=== PATIENT | female | born 1960 | race Caucasian/White ===

== ENCOUNTER 2018-04-26 11:08 | Emergency (ER) | payer OTHER, SELFPAY ==
[2018-04-26 11:17] VITALS: BP 134/85; PULSE 90; RESP 16; TEMP 36.6; O2SAT 100
--- NOTE | 2018-04-26 11:30 | DI.RAD_ITS ---
SYMPTOM/DIAGNOSIS: TRAUMA, PAIN LEFT FOOT: Three views. No bone or joint abnormality is identified. IMPRESSION: No acute abnormality.
--- NOTE | 2018-04-26 11:32 | W.ED.GENAD ---
Discharge Plan Disposition Patient Disposition: HOME Condition: Fair Discharge Details Chief Complaint: Orthopedic Clinical Impression: Contusion of foot Primary Care Provider: Marie Rao ED Provider: Skylar Addison Home Meds and New Rx's Prescriptions: Continue ascorbic acid (vitamin C) [Vitamin C] 500 MG tablet 500 mg PO DIRECTED RF: 0 omega-3 fatty acids-fish oil 1 EACH capsule 3 ea PO DIRECTED RF: 0 vitamin N76-nfxvt acid 1 EACH tablet 1 ea PO DIRECTED RF: 0 Lactobacillus acidophilus [Probiotic] 1 EACH capsule 1 ea PO RF: 0 Iodine 1 bottle PO DIRECTED RF: 0 ginkgo biloba leaf extract 120 MG capsule 120 mg PO HS RF: 0 beets 1 bottle PO DAILY RF: 0 bisacodyl [Dulcolax (bisacodyl)] 5 MG tablet,delayed release (DR/EC) 5 mg PO ONCE Qty: 4 RF: 0 polyethylene glycol 3350 [Miralax] 527 GM powder 255 gm PO for colonoscopy Qty: 1 RF: 0 Discharge Instructions Instructions: Foot Contusion (ED) Additional Instructions: Encourage rest, ice, elevation. Tylenol and/or ibuprofen as needed for discomfort. If you develop new or worsening symptoms please seek care urgently once again. If pain persists over the next 2 weeks please follow-up with primary care provider. Please avoid activities that increase your discomfort. Referrals: Marie Rao [Primary Care Provider] - Medical Decision Making Patient is a 49-year-old female presenting today with chief complaint of left foot pain. 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 No other injury at the time of the incident. Denies any numbness or tingling. States she was sore initially the pain was fairly minimal. Pain is persisted although has changed with time. Woke this morning and noted that the ecchymosis she had initially experienced on the midfoot had spread more distally. States she is now having some discomfort over this distal area which just proximal to the base of the third and fourth metatarsal. She is concerned for possible fracture. No visible or palpable deformity. Patient declining any analgesics at this time. Pain is maximal with pressure applied to the ball the foot such as when she is squatted down. Reports minimal discomfort with ambulation. Will obtain x-ray to evaluate for any bony abnormality X-ray reviewed by radiologist. No acute fracture dislocation. Soft tissues are normal. Advised impressions are with no acute findings per Discussed these findings with the patient. Advised contusion. Encouraged rest, ice, elevation. Tylenol and/or ibuprofen as needed for discomfort. We discussed the use of a postoperative shoe to help with pain management. However, patient is declined this. We discussed new/worsening symptoms when to seek care urgently once again. Advise follow-up with primary care in the next 2 weeks if symptoms have not improved. All of her questions and concerns were addressed and she is in agreement with this plan. HPI General Mode of arrival: ambulatory. Date/Time Provider Initiated Documentation: 04/26/18 11:19. Limitations to Documentation: no limitations. Information obtained by: patient. History of Present Illness 57 year old F presents to the emergency department with the chief complaint of left foot pain, described as mild, Quality is described as aching, and is localized to the left and lower extremity. Patient reports no radiation. Patient started experiencing this day(s) (3) and it has been intermittent. Immobilization improves symptom(s), Movement worsens symptoms . Patient notes rash (ecchymosis); denies cough, fever/chills and weakness. Patient did receive the following treatments prior to arrival, none Related Data Home Medications Medication Instructions Recorded Confirmed Iodine 1 bottle PO DIRECTED 04/16/14 04/26/18 Lactobacillus acidophilus 1 ea PO 04/16/14 [Probiotic] ascorbic acid (vitamin C) [Vitamin 500 mg PO DIRECTED 04/16/14 04/26/18 C] omega-3 fatty acids-fish oil 3 ea PO DIRECTED 04/16/14 04/26/18 vitamin R10-bbzkf acid 1 ea PO DIRECTED 04/16/14 04/26/18 Beets 1 bottle PO DAILY 08/03/15 04/26/18 ginkgo biloba leaf extract 120 mg PO HS 08/03/15 04/26/18 bisacodyl [Dulcolax (bisacodyl)] 5 mg PO ONCE #4 tab 08/31/15 04/26/18 polyethylene glycol 3350 [Miralax] 255 gm PO for colonoscopy #1 g 08/31/15 04/26/18 Allergies Allergy/AdvReac Type Severity Reaction Status Date / Time Egg Derived Allergy Intermediate Dizziness/L Unverified 04/26/18 11:20 ightheade gluten Allergy Dizziness/L Unverified 04/26/18 11:20 ightheade Sulfa (Sulfonamide AdvReac Severe Vomitting/loss Unverified 04/26/18 11:20 Antibiotics) of consciousness lactose AdvReac Intermediate Dizziness/L Unverified 04/26/18 11:20 ightheade General Stated Complaint: Orthopedic ROMI: 4 Review of Systems Constitutional Reports as per HPI, Denies chills, Denies fever(s), Denies headache(s) and Denies weakness ENT Denies headache(s) Cardiovascular Reports as per HPI Respiratory Reports as per HPI and Denies cough Musculoskeletal Reports as per HPI and Denies tingling Integumentary/Breasts Denies rash, Denies wounds and Reports other (ecchymosis over the dorsal aspect of the left foot) Neurologic Denies headache(s), Denies tingling and Denies weakness PFSH Hx of abnormal cervical Pap smear Hx of colonic polyps Colonoscopy - IV Sedation (05/08/16) Medical History Hx of abnormal cervical Pap smear Hx of colonic polyps Social History Smoking/Tobacco Use Status: Never Surgical History Colonoscopy - IV Sedation (05/08/16) Social History Smoking/Tobacco Use Status: Never Exam Const General: cooperative, healthy appearing, comfortable, no acute distress, well developed and well groomed Nutritional Appearance: average body habitus and well nourished Orientation: alert and awake Resp Effort & Inspection: normal respiratory effort, able to speak in complete sentences and no respiratory distress Cardio Rate: regular rate Rhythm: regular rhythm Skin General skin exam: ecchymosis (yellowed ecchymosis over the dorsal midfoot of the left foot, darker purple area of ecchymosis distal to this at the base of the 3rd and 4th metatarsal) Neuro General: alert and awake Cognition: normal cognition Speech: speech normal Gait: normal gait Motor: muscle tone normal throughout Sensory Exam: no sensory deficits noted Extrem Left lower extremity: full ROM and normal capillary refill; abnormal to inspection (ecchymosis as above. Pain with palpation over the ecchymotic areas, particularly the distal aspect. Full ROM. No visible or palpable deformity. No pain with palpation over the prox 5th. No pain with compression of the area. No abnormality to the plantar aspect) Psych Appearance: grossly normal and well kempt Mental Status: mental status grossly normal Speech and Movement: speech and movement normal Course Vital Signs Temperature 36.6 C 04/26/18 11:17 Pulse 90 04/26/18 11:17 Respiratory Rate 16 04/26/18 11:17 Blood Pressure 134/85 04/26/18 11:17 Pulse Oximetry 100 04/26/18 11:17 Temperature 36.6 C 04/26/18 11:17 Temperature Source Skin 04/26/18 11:17 Pulse 90 04/26/18 11:17 Respiratory Rate 16 04/26/18 11:17 Respiratory Effort Non-Labored 04/26/18 11:17 Blood Pressure 134/85 04/26/18 11:17 Blood Pressure Position Sitting 04/26/18 11:17 Pulse Oximetry 100 04/26/18 11:17 Oxygen Delivery Method Room Air 04/26/18 11:17 Oxygen Flow Rate 0 04/26/18 11:17 Pain Level 2 04/26/18 11:17
--- NOTE | 2018-04-26 11:41 | ED.GENADUL_ITS ---
Discharge Plan Disposition Patient Disposition: HOME Condition: Fair Discharge Details Chief Complaint: Orthopedic Clinical Impression: Contusion of foot Primary Care Provider: Marie Rao ED Provider: Skylar Addison Home Meds and New Rx's Prescriptions: Continue ascorbic acid (vitamin C) [Vitamin C] 500 MG tablet 500 mg PO DIRECTED RF: 0 omega-3 fatty acids-fish oil 1 EACH capsule 3 ea PO DIRECTED RF: 0 vitamin P14-gjxym acid 1 EACH tablet 1 ea PO DIRECTED RF: 0 Lactobacillus acidophilus [Probiotic] 1 EACH capsule 1 ea PO RF: 0 Iodine 1 bottle PO DIRECTED RF: 0 ginkgo biloba leaf extract 120 MG capsule 120 mg PO HS RF: 0 beets 1 bottle PO DAILY RF: 0 bisacodyl [Dulcolax (bisacodyl)] 5 MG tablet,delayed release (DR/EC) 5 mg PO ONCE Qty: 4 RF: 0 polyethylene glycol 3350 [Miralax] 527 GM powder 255 gm PO for colonoscopy Qty: 1 RF: 0 Discharge Instructions Instructions: Foot Contusion (ED) Additional Instructions: Encourage rest, ice, elevation. Tylenol and/or ibuprofen as needed for discomfort. If you develop new or worsening symptoms please seek care urgently once again. If pain persists over the next 2 weeks please follow-up with primary care provider. Please avoid activities that increase your discomfort. Referrals: Marie Rao [Primary Care Provider] - Medical Decision Making Patient is a 49-year-old female presenting today with chief complaint of left foot pain. 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 No other injury at the time of the incident. Denies any numbness or tingling. States she was sore initially the pain was fairly minimal. Pain is persisted although has changed with time. Woke this morning and noted that the ecchymosis she had initially experienced on the midfoot had spread more distally. States she is now having some discomfort over this distal area which just proximal to the base of the third and fourth metatarsal. She is concerned for possible fracture. No visible or palpable deformity. Patient declining any analgesics at this time. Pain is maximal with pressure applied to the ball the foot such as when she is squatted down. Reports minimal discomfort with ambulation. Will obtain x-ray to evaluate for any bony abnormality X-ray reviewed by radiologist. No acute fracture dislocation. Soft tissues are normal. Advised impressions are with no acute findings per Discussed these findings with the patient. Advised contusion. Encouraged rest , ice, elevation. Tylenol and/or ibuprofen as needed for discomfort. We discussed the use of a postoperative shoe to help with pain management. However , patient is declined this. We discussed new/worsening symptoms when to seek care urgently once again. Advise follow-up with primary care in the next 2 weeks if symptoms have not improved. All of her questions and concerns were addressed and she is in agreement with this plan. HPI General Mode of arrival: ambulatory . Date/Time Provider Initiated Documentation: 04/26/18 11:19 . Limitations to Documentation: no limitations . Information obtained by: patient . History of Present Illness 57 year old F presents to the emergency department with the chief complaint of left foot pain, described as mild, Quality is described as aching, and is localized to the left and lower extremity. Patient reports no radiation. Patient started experiencing this day(s) (3) and it has been intermittent. Immobilization improves symptom(s), Movement worsens symptoms . Patient notes rash (ecchymosis); denies cough, fever/chills and weakness. Patient did receive the following treatments prior to arrival, none Related Data Home Medications Medication Instructions Recorded Confirmed Iodine 1 bottle PO DIRECTED 04/16/14 04/26/18 Lactobacillus acidophilus 1 ea PO 04/16/14 [Probiotic] ascorbic acid (vitamin C) [Vitamin 500 mg PO DIRECTED 04/16/14 04/26/18 C] omega-3 fatty acids-fish oil 3 ea PO DIRECTED 04/16/14 04/26/18 vitamin N03-tjsom acid 1 ea PO DIRECTED 04/16/14 04/26/18 Beets 1 bottle PO DAILY 08/03/15 04/26/18 ginkgo biloba leaf extract 120 mg PO HS 08/03/15 04/26/18 bisacodyl [Dulcolax (bisacodyl)] 5 mg PO ONCE #4 tab 08/31/15 04/26/18 polyethylene glycol 3350 [Miralax] 255 gm PO for colonoscopy #1 g 08/31/1504/26 Allergies Allergy/AdvReac Type Severity Reaction Status Date / Time Egg Derived Allergy Intermediate Dizziness/L Unverified 04/26/18 11:20 ightheade gluten Allergy Dizziness/L Unverified 04/26/18 11:20 ightheade Sulfa (Sulfonamide AdvReac Severe Vomitting/loss Unverified 04/26/18 11:20 Antibiotics) of consciousness lactose AdvReac Intermediate Dizziness/L Unverified 04/26/18 11:20 ightheade General Stated Complaint: Orthopedic ROMI: 4 Review of Systems Constitutional Reports as per HPI, Denies chills, Denies fever(s), Denies headache(s) and Denies weakness ENT Denies headache(s) Cardiovascular Reports as per HPI Respiratory Reports as per HPI and Denies cough Musculoskeletal Reports as per HPI and Denies tingling Integumentary/Breasts Denies rash, Denies wounds and Reports other (ecchymosis over the dorsal aspect of the left foot) Neurologic Denies headache(s), Denies tingling and Denies weakness PFSH Hx of abnormal cervical Pap smear Hx of colonic polyps Colonoscopy - IV Sedation (05/08/16) Medical History Hx of abnormal cervical Pap smear Hx of colonic polyps Social History Smoking/Tobacco Use Status: Never Surgical History Colonoscopy - IV Sedation (05/08/16) Social History Smoking/Tobacco Use Status: Never Exam Const General: cooperative, healthy appearing, comfortable, no acute distress, well developed and well groomed Nutritional Appearance: average body habitus and well nourished Orientation: alert and awake Resp Effort & Inspection: normal respiratory effort, able to speak in complete sentences and no respiratory distress Cardio Rate: regular rate Rhythm: regular rhythm Skin General skin exam: ecchymosis (yellowed ecchymosis over the dorsal midfoot of the left foot, darker purple area of ecchymosis distal to this at the base of the 3rd and 4th metatarsal) Neuro General: alert and awake Cognition: normal cognition Speech: speech normal Gait: normal gait Motor: muscle tone normal throughout Sensory Exam: no sensory deficits noted Extrem Left lower extremity: full ROM and normal capillary refill; abnormal to inspection (ecchymosis as above. Pain with palpation over the ecchymotic areas, particularly the distal aspect. Full ROM. No visible or palpable deformity. No pain with palpation over the prox 5th. No pain with compression of the area. No abnormality to the plantar aspect) Psych Appearance: grossly normal and well kempt Mental Status: mental status grossly normal Speech and Movement: speech and movement normal Course Vital Signs Temperature 36.6 C 04/26/18 11:17 Pulse 90 04/26/18 11:17 Respiratory Rate 16 04/26/18 11:17 Blood Pressure 134/85 04/26/18 11:17 Pulse Oximetry 100 04/26/18 11:17 Temperature 36.6 C 04/26/18 11:17 Temperature Source Skin 04/26/18 11:17 Pulse 90 04/26/18 11:17 Respiratory Rate 16 04/26/18 11:17 Respiratory Effort Non-Labored 04/26/18 11:17 Blood Pressure 134/85 04/26/18 11:17 Blood Pressure Position Sitting 04/26/18 11:17 Pulse Oximetry 100 04/26/18 11:17 Oxygen Delivery Method Room Air 04/26/18 11:17 Oxygen Flow Rate 0 04/26/18 11:17 Pain Level 2 04/26/18 11:17
--- NOTE | 2018-04-26 12:27 | DI.VRAD_ITS ---
EXAM: XR Left Foot Complete, 3 or more Views EXAM DATE/TIME: 04/26/2018 11:56 AM CLINICAL HISTORY: 57 years old, female; Pain; Foot; Left; Patient HX: Trauma, chair dropped on midfoot TECHNIQUE: XR Left foot 3 or more views. COMPARISON: No relevant prior studies available. FINDINGS: Bones/joints: No acute fracture. No dislocation. Soft tissues: Normal. IMPRESSION: No acute findings. Dictated and Authenticated by: Jodie Ly MD. Ordering:DREW LOPEZ MD
== END 2018-04-26 12:40 | disposition home or self-care (01) ==
PROVIDERS: Emergency Provider Physician Assistant; PCP Naturopath
DX: S90.32XA Contusion of left foot, initial encounter (principal); W22.8XXA Striking against or struck by other objects, initial encounter
CPT/HCPCS: 99283; 73630; 99282

== ENCOUNTER 2018-07-08 13:30 | Emergency (ER) | payer BC, SELFPAY ==
[2018-07-08 13:34] VITALS: BP 113/76; PULSE 110; RESP 20; TEMP 38.8; O2SAT 99
--- NOTE | 2018-07-08 13:48 | DI.RAD_ITS ---
SYMPTOM/DIAGNOSIS: COUGH, FEVER PA AND LATERAL CHEST: No priors. The heart is normal in size. The lungs are clear. The mediastinal structures and pleura appear intact. CONCLUSION: Normal chest.
--- NOTE | 2018-07-08 13:50 | ED.GENADUL_ITS ---
Discharge Plan Disposition Patient Disposition: HOME Condition: Improving Discharge Details Chief Complaint: Fever Clinical Impression: Acute viral syndrome Primary Care Provider: Marie Rao ED Provider: Sal Pineda Home Meds and New Rx's Prescriptions: New ondansetron HCl [Zofran] 4 mg tablet 4 mg PO QID PRN (Reason: nausea and vomiting) Qty: 10 RF: 0 Continued ascorbic acid (vitamin C) [Vitamin C] 500 MG tablet 500 mg PO DIRECTED RF: 0 omega-3 fatty acids-fish oil 1 EACH capsule 3 ea PO DIRECTED RF: 0 vitamin Z25-srieh acid 1 EACH tablet 1 ea PO DIRECTED RF: 0 Probiotic 1 EACH capsule 1 ea PO RF: 0 ginkgo biloba leaf extract 120 MG capsule 120 mg PO HS RF: 0 beets 1 bottle PO DAILY RF: 0 bisacodyl [Dulcolax (bisacodyl)] 5 MG tablet,delayed release (DR/EC) 5 mg PO ONCE Qty: 4 RF: 0 polyethylene glycol 3350 [Miralax] 527 GM powder 255 gm PO for colonoscopy Qty: 1 RF: 0 Discharge Instructions Instructions: Viral Syndrome (ED) Additional Instructions: Home to rest today. Small, frequent sips of fluids to maintain hydration. Tylenol and/or ibuprofen as needed for aches, pain, fever May use Zofran, as prescribed, as needed for nausea. Return if you develop abdominal persistent high fevers, or any other acute concerns Medical Decision Making 58-year-old female presents from home with day 6 of fever, chills, cough, malaise, decreased p.o. intake and weakness. She arrives with a temperature of 38.8, pulse of 110, otherwise normal vital signs. Given 1 L fluid, antiemetic, referred for influenza screening a chest x-ray. Chest x-ray and flu are negative. Patient is improved and tolerating liquids by mouth. It is consistent with a viral process. Will offer her Zofran for home. She is stable, improved, appropriate for discharge at this time. HPI General Mode of arrival: ambulatory . Date/Time Provider Initiated Documentation: 07/08/18 13:39 . Limitations to Documentation: no limitations . Information obtained by: patient . History of Present Illness described as moderate, Quality is described as dull, Patient started experiencing this day(s) and it has been intermittent. No relieving factors improve symptom(s), No exacerbating factors reported . Patient notes fever/chills, loss of appetite, malaise and weakness. Patient did receive the following treatments prior to arrival, none Related Data Home Medications Medication Instructions Recorded Confirmed Probiotic 1 ea PO 04/16/14 ascorbic acid (vitamin C) [Vitamin 500 mg PO DIRECTED 04/16/14 07/08/18 C] omega-3 fatty acids-fish oil 3 ea PO DIRECTED 04/16/14 07/08/18 vitamin C19-hfzcr acid 1 ea PO DIRECTED 04/16/14 07/08/18 Beets 1 bottle PO DAILY 08/03/15 04/26/18 ginkgo biloba leaf extract 120 mg PO HS 08/03/15 07/08/18 bisacodyl [Dulcolax (bisacodyl)] 5 mg PO ONCE #4 tab 08/31/15 07/08/18 polyethylene glycol 3350 [Miralax] 255 gm PO for colonoscopy #1 g 08/31/15 07/08/18 ondansetron HCl [Zofran] 4 mg PO QID PRN #10 tab 07/08/18 Previous Rx's Medication Instructions Recorded ondansetron HCl [Zofran] 4 mg PO QID PRN #10 tab 07/08/18 Allergies Allergy/AdvReac Type Severity Reaction Status Date / Time Egg Derived Allergy Intermediate Dizziness/L Unverified 07/08/18 13:38 ightheade gluten Allergy Dizziness/L Unverified 07/08/18 13:38 ightheade Sulfa (Sulfonamide AdvReac Severe Vomitting/loss Unverified 07/08/18 13:38 Antibiotics) of consciousness lactose AdvReac Intermediate Dizziness/L Unverified 07/08/18 13:38 ightheade General Stated Complaint: Fever ROMI: 3 Review of Systems Review of Systems 8 systems reviewed and otherwise negative [facility] Medical History Hx of abnormal cervical Pap smear Hx of colonic polyps Surgical History Colonoscopy - IV Sedation (05/08/16) Social History Smoking and Tabacco status: Never Exam Narrative Exam Narrative: GEN: awake, alert, oriented 3. Pleasant, well groomed, interactive. HEAD: Normocephalic, atraumatic ENT: Mucous membranes dry, oropharynx unremarkable, External ear exam unremarkable EYES: PERRL, EOMI NECK: Full ROM, no GATITO, no menigismus CHEST/RESP: Nontender, clear to auscultation bilateral, no wheeze/rhonchi/rales CARDIOVASCULAR: Tachycardic, no murmur, rub stacey. 2+ Rad pulse bilateral ABDOMEN: Soft, nontender, no mass. +Bowel sounds EXT: Full ROM, no edema, no rash Neuro: Grossly normal neurologic exam, conversant, interactive. Psych: Speech fluent, thoughts congruent, affect normal Course Vital Signs Temperature 38.8 C H 07/08/18 13:34 Pulse 110 H 07/08/18 13:34 Respiratory Rate 20 07/08/18 13:34 Blood Pressure 113/76 07/08/18 13:34 Pulse Oximetry 99 07/08/18 13:34 Temperature 38.8 C H 07/08/18 13:34 Temperature Source Temporal Artery Scan 07/08/18 13:34 Pulse 110 H 07/08/18 13:34 Respiratory Rate 20 07/08/18 13:34 Respiratory Effort Non-Labored 07/08/18 13:34 Blood Pressure 113/76 07/08/18 13:34 Pulse Oximetry 99 07/08/18 13:34 Oxygen Delivery Method Room Air 07/08/18 13:34 Oxygen Flow Rate 0 07/08/18 13:34 Pain Level 0 07/08/18 13:34
[2018-07-08] MEDS: Ketorolac 30 MG/ML VIAL IVP (14:00)
[2018-07-08] MEDS: Normal Saline 1,000 ML 1000 ML IV (14:00)
[2018-07-08 14:58] LABS: Absolute Basophil Count 0.01 k/cumm (0.0-0.2); Absolute Lymphocyte Count 0.52 k/cumm (1.2-3.4); Absolute Monocyte Count 0.35 k/cumm (0.11-0.7); Absolute Neutrophil Count 1.95 k/cumm (1.2-6.7); Basophils % 0.4; HGB 14.3 g/dL (12.0-15.5); Lymphocytes % 18.4; Mean Corp. HGB Concentration 34.9 g/dL (32.0-36.0); Mean Corpuscular Hemoglobin 31.7 pg (27.0-33.0); Mean Corpuscular Volume 90.9 fL (80-95); Mean Platelet Volume 9.5 fL (8.0-11.0); Monocytes % 12.4; Neutrophils % 68.8; Platelet Count 168 x1000/uL (130-400); RBC 4.51 m/cumm (4.00-5.20); RBC Distribution Width 11.2 % (11.7-14.6); White Blood Cell Count 2.83 k/cumm (4.4-10.8)
[2018-07-08 15:13] LABS: ALT 20 U/L (12-78); AST 20 U/L (15-37); Albumin 3.6 g/dL (3.4-5.0); Alkaline Phosphatase 54 U/L (46-116); Anion Gap 7.9 mmol/L (3-11); BUN 6 mg/dL (7-18); Bilirubin, Total 0.8 mg/dL (0.2-1.0); CO2 29.1 mmol/L (21.0-32.0); CREATININE 0.87 mg/dL (0.55-1.02); Calcium 8.4 mg/dL (8.5-10.1); Chloride 93 mmol/L (98-107); Glucose 99 mg/dL (70-100); Potassium 3.9 mmol/L (3.5-5.1); Sodium 130 mmol/L (136-145); Total Protein 7.5 g/dL (6.4-8.2)
[2018-07-08] MEDS: Ondansetron O.D.T. 4 MG TABEF PO (15:15)
[2018-07-08 16:35] VITALS: BP 113/76; PULSE 98; RESP 20; TEMP 36.8; O2SAT 99
== END 2018-07-08 16:35 | disposition home or self-care (01) ==
PROVIDERS: Emergency Provider Emergency Medicine; PCP Naturopath
DX: R05 Cough (principal); R53.1 Weakness; R53.81 Other malaise; R50.9 Fever, unspecified; B34.9 Viral infection, unspecified
CPT/HCPCS: 36415; 80053; 87449; 99284; 71046; 85025; J1885

== ENCOUNTER 2018-07-23 00:22 | Outpatient (CLI) | payer BC, SELFPAY ==
--- NOTE | 2018-07-23 09:30 | DI.US_ITS ---
SYMPTOMS/DIAGNOSIS: HEMANGIOMA OF LIVER, D18.03, 6 MO F/U ABDOMINAL ULTRASOUND: Routine examination. Comparison 12/02/17. The aorta and IVC are unremarkable. The liver is normal in size. There is a round hyperechoic mass in the left lobe of the liver. It measures 1.6 x 1.4 x 1.5 cm. When compared to the prior examination, image 24, the mass shows no significant change in size. At that time measuring 1.7 x 1.6 cm. This likely reflects a hemangioma. No suspicious hepatic masses are seen. There are a few tiny echogenic immobile nodules along the wall of the gallbladder likely reflecting polyps. No mobile echogenic masses are seen to suggest stones. No gallbladder wall thickening or pericholecystic fluid is seen. No sludge is present. The common duct is within normal limits at .3 cm. The pancreas and spleen are unremarkable. There is again seen a 0.9 cm hyperechoic mass in the left kidney. It appears stable and likely reflects a benign lesion such as an angiomyolipoma. The right kidney is unremarkable. IMPRESSION: 1. Stable echogenic lesion in the left lobe of the liver likely reflecting a hepatic hemangioma. A 6 month follow up is recommended to document stability of the lesion. Alternatively a CT scan using the hepatic hemangioma protocol may be obtained. 2. Stable echogenic 9 mm nodule in the left kidney likely reflecting an angiomyolipoma. 3. Gallbladder polyps.
== END 2018-07-23 00:42 ==
PROVIDERS: PCP Naturopath; Visit Provider Naturopath
DX: D18.03 Hemangioma of intra-abdominal structures (principal); K82.4 Cholesterolosis of gallbladder; N28.89 Other specified disorders of kidney and ureter
CPT/HCPCS: 76700

== ENCOUNTER 2019-11-04 00:58 | Outpatient (CLI) | payer BC, SELFPAY ==
--- NOTE | 2019-11-04 | DI.US_ITS ---
EXAM: US ABDOMEN CLINICAL HISTORY: F/U HEMANGIOMA,D18.03,INCREASED RT SIDED ABD PAIN, NO MASS PALPATED TECHNIQUE: Ultrasound abdomen performed using standard protocol. COMPARISON: No exams were available for comparison FINDINGS: ABDOMINAL AORTA AND IVC: Visualized portions normal caliber. PANCREAS: Normal where visualized. LIVER: Normal. Hepatopedal flow in the Portal Vein. There is again seen a 1.3 x 1 x 1.7 cm hyperechoi c mass in the left lobe most consistent sonographically with a hemangioma. It is unchanged compared to the prior examination. There is a 1.5 x 1.3 x 1.5 cm simple cyst in the right lobe of the liver. GALLBLADDER: No evidence of cholelithiasis. No evidence of wall thickening. No pericholecystic fluid identified. Several small echogenic immobile nodules are again seen along the wall of the gallbladder most suggestive of polyps. BILIARY SYSTEM: Common bile duct measures 2.4 mm. No intrahepatic biliary ductal dilation. DEL VALLE'S SIGN: Negative. KIDNEYS: Kidneys are symmetric in size. No evidence of renal calculi. No evidence of hydronephrosis. There are again seen well-circumscribed round hyperechoic lesions in the left kidney. The largest me asures 0.9 cm in maximum diameter. These likely represent angiomyolipoma is. SPLEEN: Not enlarged. ASCITES: None seen. IMPRESSION: 1. Stable hyperechoic mass in the left lobe of the liver likely reflecting a hepatic hemangioma. 2. Stable echogenic left renal lesions likely reflecting angiomyolipoma. 3. Gallbladder polyps. DATA REPOSITORY:
== END 2019-11-04 01:18 ==
PROVIDERS: PCP Naturopath; Visit Provider Naturopath
DX: R10.31 Right lower quadrant pain (principal); D18.03 Hemangioma of intra-abdominal structures; D17.71 Benign lipomatous neoplasm of kidney; K82.4 Cholesterolosis of gallbladder
CPT/HCPCS: 76700

== ENCOUNTER 2019-11-04 01:15 | Outpatient (CLI) | payer BC, SELFPAY ==
[2019-11-04 07:37] LABS: Abs Immature Grans 0.01 k/cumm (0.0-0.09); Absolute Basophil Count 0.01 k/cumm (0.0-0.2); Absolute Eosinophil Count 0.06 k/cumm (0.0-0.7); Absolute Lymphocyte Count 1.37 k/cumm (1.2-3.4); Absolute Monocyte Count 0.36 k/cumm (0.11-0.7); Absolute Neutrophil Count 2.41 k/cumm (1.2-6.7); Basophils % 0.2; Eosinophils % 1.4; HCT 41.7 % (36.0-46.0); HGB 14.5 g/dL (12.0-15.5); Immature Grans % 0.2 %; Lymphocytes % 32.5; Mean Corp. HGB Concentration 34.8 g/dL (32.0-36.0); Mean Corpuscular Hemoglobin 32.2 pg (27.0-33.0); Mean Corpuscular Volume 92.7 fL (80-95); Mean Platelet Volume 8.8 fL (8.0-11.0); Monocytes % 8.5; Neutrophils % 57.2; Platelet Count 307 x1000/uL (130-400); RBC Distribution Width 11.4 % (11.7-14.6); White Blood Cell Count 4.22 k/cumm (4.4-10.8)
[2019-11-04 08:20] LABS: Iron 136 ug/dL (50-170); Total Iron Binding Capacity 309 ug/dL (250-450); Transferrin Sat 44 % (15-50)
[2019-11-04 08:46] LABS: ALT 27 U/L (14-59); AST 18 U/L (15-37); Albumin 4.3 g/dL (3.4-5.0); Alkaline Phosphatase 64 U/L (46-116); BUN 8 mg/dL (7-18); Bilirubin, Total 1.5 mg/dL (0.2-1.0); Calcium 9.3 mg/dL (8.5-10.1); Calculated LDL 71 mg/dL (<100); Chloride 105 mmol/L (98-107); Cholesterol 138 mg/dL (<200); Ferritin 99 ng/mL (8-252); Folate 19.4 ng/mL (8.6-20.0); Glucose 88 mg/dL (74-106); HDL Cholesterol 50 mg/dL (40-60); Potassium 4.5 mmol/L (3.5-5.1); Sodium 142 mmol/L (136-145); Total Protein 7.1 g/dL (6.4-8.2); Triglyceride 88 mg/dL (<150); Vitamin B12 1462 pg/mL (193-986)
[2019-11-04 09:08] LABS: Amylase 106 U/L (25-115); Lipase 226 U/L (73-393)
[2019-11-05 05:53] LABS: Vitamin D 25 Total 51.4 ng/ml (30-100)
== END 2019-11-04 01:35 ==
PROVIDERS: PCP Naturopath; Visit Provider Naturopath
DX: R10.9 Unspecified abdominal pain (principal); R53.83 Other fatigue; Z13.220 Encounter for screening for lipoid disorders
CPT/HCPCS: 36415; 80053; 80061; 82306; 83690; 82150; 82607; 82728; 82746; 83540; 83550; 85025

== ENCOUNTER 2020-04-07 08:31 | Outpatient (CLI) | payer BC, SELFPAY ==
[2020-04-11 13:23] LABS: Patient Race White; SARS-CoV-2 RNA Undetected (Undetected); SARS-CoV-2 Specimen Source Nasal
== END 2020-04-07 08:51 ==
PROVIDERS: PCP Naturopath; Visit Provider Naturopath
DX: Z11.59 Encounter for screening for other viral diseases (principal)
CPT/HCPCS: U0003

== ENCOUNTER 2021-05-04 02:39 | Outpatient (CLI) | payer MEDICAID, SELFPAY ==
[2021-05-04 13:12] LABS: Abs Immature Grans 0.01 10^3/uL (0.0-0.06); Absolute Basophil Count 0.02 10^3/uL (0.0-0.2); Absolute Eosinophil Count 0.04 10^3/uL (0.0-0.7); Absolute Lymphocyte Count 1.27 10^3/uL (1.2-3.4); Absolute Monocyte Count 0.44 10^3/uL (0.1-0.8); Absolute Neutrophil Count 3.73 10^3/uL (1.2-6.7); Basophils % 0.4; Eosinophils % 0.7; HGB 13.7 g/dL (11.2-15.7); Immature Grans % 0.2; MCH 32.2 pg (27.0-33.0); MCHC 33.4 % (32.0-36.0); MCV 96.2 fL (80-95); MPV 8.9 fL (8.0-11.0); Neutrophils % 67.7; Nucleated RBC 0 %; Platelet Count 297 10^3/uL (130-400); RBC 4.26 10^6/uL (3.93-5.22); RDW 11.1 % (11.7-14.6); RDW-SD 39.7 fL; WBC 5.51 10^3/uL (4.4-10.8)
[2021-05-04 14:48] LABS: ALT 24 U/L (14-59); AST 13 U/L (15-37); Alkaline Phosphatase 55 U/L (46-116); Anion Gap 10.7 mmol/L (3-11); BUN 8 mg/dL (7-18); Bilirubin, Total 0.8 mg/dL (0.2-1.0); CO2 28.3 mmol/L (21.0-32.0); CREATININE 0.7 mg/dL (0.55-1.02); Chloride 99 mmol/L (98-107); Ferritin 75 ng/mL (8-252); GGT 23 U/L (5-55); Glucose 99 mg/dL (74-106); Potassium 4.3 mmol/L (3.5-5.1); Sodium 138 mmol/L (136-145); Total Protein 6.8 g/dL (6.4-8.2)
[2021-05-04 15:09] LABS: C-Reactive Protein < 0.05 mg/dL (0.0-0.3)
[2021-05-05 13:42] LABS: EBNA IgG Equivocal (Negative); VCA IgG Positive (Negative); VCA IgM Negative (Negative)
[2021-05-06 13:48] LABS: EBV EA IgG Equivocal (Negative)
[2021-05-09 08:52] LABS: 25-Hydroxy D Total 37 ng/mL; 25-Hydroxy D2 <4.0 ng/mL; 25-Hydroxy D3 37 ng/mL
== END 2021-05-04 02:40 | disposition home or self-care (01) ==
LOC: LBO 02:39
PROVIDERS: PCP Naturopath; Visit Provider Naturopath
DX: R53.83 Other fatigue (principal); E55.9 Vitamin D deficiency, unspecified; R68.83 Chills (without fever); R10.31 Right lower quadrant pain
CPT/HCPCS: 36415; 80053; 82306; 86663; 82728; 82977; 85025; 86140; 86664; 86665

== ENCOUNTER 2022-04-02 06:54 | Day surgery (SDC) | payer BC, SELFPAY ==
--- NOTE | 2022-04-02 07:00 | W.COLOREPORT ---
Date of service: 04/02/22 Time of Service: 08:15 Colonoscopy Report Date of procedure: 04/02/22 Pre-op diagnosis general: screening and family history Post-op diagnosis procedure note: other (polyps ) Procedure: Colonoscopy with polypectomy Surgeon: Gilma Saab Anesthesia Type: General:No Airway Estimated blood loss (mL): 2 Pathology: other (cecal polyps x2, transverse polyp) Complications: None Disposition: same day Indications: The patient? is a pleasant ? 61-year-old female who is here to discuss another screening colonoscopy. ? Her last colonoscopy was in 2016. She denies any changes in bowel habits, melena, hematochezia, unintentional weight loss.? She has a family history of colon cancer in her grandfather who was in his 80s and her sister who is 54.? Her mom also had numerous polyps at the time of her colonoscopies.? The procedure and risks were discussed.? The prep was reviewed in detail.? Risks, benefits and complications have been reviewed. Complications include but are not limited to bleeding, pain, perforation, missed small lesion/polyp, sore throat, aspiration and adverse reaction to the medications. Questions were entertained and answered to their satisfaction and they wished to proceed. No guarantees were given or implied. Prep: Miralax/Dulcolax Procedure Start Time: 08:15 Procedure End Time: 08:39 Retraction Time: 15 minutes Findings: 2 cecal polyps ? transverse polyp Procedure Description: After informed consent was obtained the patient was taken to the procedure room and placed in a left decubitous position. Monitors were applied and a time out was done. The patients name, date of , procedure, allergies to medications and metal in their body was reviewed. The patient was then sedated. Once sedated and comfortable a rectal exam was done. External exam was normal. Internal exam revealed a normal sphincter tone and no palpable masses. The scope was then introduced and retro-flexed. No internal hemorrhoids, polyps or masses were identified on retro-flexion. The scope was then advanced to the cecum without difficulty. The ileocecal vlave and appendiceal orifice were identified. The prep was good. The scope was then slowly retracted over 15 minutes back into the rectum. Polyps were removed with forceps in the cecum x2 and transverse colon x1. There was no diverticulosis noted. The scope was removed and the patient was woken up and taken back to Same day surgery in stable condition. The patient tolerated the procedure well and there were no immediate complications. Follow up: The patient should follow up in 5 years unless they develop changes in bowel habits or other new gastrointestinal complaints.
--- NOTE | 2022-04-02 07:01 | W.PM.DSUDISC ---
Date of service: 04/02/22 Time of Service: 08:15 Discharge Plan Disposition Patient Disposition: HOME Condition: Good Discharge Details Reason For Visit: colonoscopy Attending Provider: Gilma Saab Primary Care Provider: Marie Rao Home Meds and New Rx's Prescriptions: Continued ascorbic acid (vitamin C) [Vitamin C] 500 MG tablet 500 mg PO DIRECTED vitamin U79-rhfwu acid 1 EACH tablet 1 ea PO DIRECTED Probiotic 1 EACH capsule 1 ea PO DAILY B-Stress 2,000 mcg capsule 1 cap PO DAILY Discontinued polyethylene glycol 3350 17 gram/dose powder 238 g PO ONCE Qty: 238 0RF Rx Instructions: take per colonoscopy instructions bisacodyl [Dulcolax (bisacodyl)] 5 mg tablet,delayed release (DR/EC) 5 mg PO ONCE Qty: 4 0RF Rx Instructions: take per colonoscopy instructions Discharge Instructions Instructions: Colorectal Polyps (DC) Additional Instructions: Findings: 3 polyps Follow up: 5 years Please call if you develop: fevers >101.5 Nausea or Vomiting Abdominal pain that is not transient Rectal bleeding that is more then a tbsp A hard abdomen and inability to pass gas DAY SURGERY UNIT POST ENDOSCOPY INSTRUCTIONS Instructions for everyone who is given Anesthesia: For your safety, please do the following for the next 24 Hours: a. Do not drive or operate dangerous equipment b. Do not drink alcohol beverages or use any recreational drugs for the first 24 hours or while taking pain medications. The medications in your body may have a reaction that can be dangerous. c. Do not make any important decisions or sign any important papers 1. Generally there are no restrictions on your activity after a day or so has gone by, but you may feel a bit fatigued for a few days. 2. After you arrive home you may have a light meal and return to a normal diet as you can tolerate it without feeling sick to your stomach. 3. After surgery, you may feel pain or discomfort. This should be only transient, but if it persists please contact your doctor. 4. If there are any questions regarding the findings of your procedure, please feel free to contact your doctor. 6. If you are unable to contact your doctor with a problem, contact the hospital at [phone]. 7. Continue all your regular medications unless directed otherwise. I understand the above instructions and have no questions. Signature of Patient or Responsible Adult Escort Date/Time Name of Responsible Adult Escort Signature of Nurse Date/Time Activity:: Activity as Tolerated Diet:: As Tolerated Discharge Orders Discharge Orders: Discharge Order (Routine); Ordered 04/02/22 Ordered By: Gilma Saab
[2022-04-02 07:25] VITALS: BP 110/73; PULSE 86; RESP 16; TEMP 36.2; O2SAT 100
[2022-04-02] MEDS: Lactated Ringers 1,000 ML 80 ML IV (07:37)
--- NOTE | 2022-04-02 07:45 | W.ANESPRE ---
General Info Date of Service Date Performed: 04/02/22 Height: 5 ft 3 in Weight: 56.2 kg Body Mass Index (BMI): 21.9 Surgical Procedure: Operation Date: 04/02/22 08:20 Proposed Procedure Side Surgeon p Colonoscopy Gilma Saab MD Meds Allergies and Home Medications Allergies Allergy/AdvReac Type Severity Reaction Status Date / Time Sulfa (Sulfonamide Allergy Severe Vomitting/loss Unverified 04/02/22 07:24 Antibiotics) of consciousness Egg Derived AdvReac Intermediate Dizziness/L Unverified 04/02/22 07:24 ightheade corn AdvReac Other (See Verified 04/02/22 07:25 Comment) gluten AdvReac Diarrhea, Unverified 04/02/22 07:24 IBS dairy Allergy Intermediate Diarrhea, Uncoded 04/02/22 07:24 rash Home Medication Medication Instructions Recorded Lactobacillus acidophilus 10 1 ea PO DAILY 04/16/14 billion cell capsule (Probiotic) ascorbic acid (vitamin C) 500 mg 500 mg PO DIRECTED 04/16/14 tablet (Vitamin C) vitamin B12 500 mcg-folic acid 400 1 ea PO DIRECTED 04/16/14 mcg tablet vitamin B complex-folic acid 2,000 1 cap PO DAILY 07/10/21 mcg capsule (B-Stress) bisacodyl 5 mg tablet,delayed 5 mg PO ONCE colonscopy bowel prep 03/16/22 release (Dulcolax (bisacodyl)) #4 tabs polyethylene glycol 3350 17 238 g PO ONCE colonoscopy prep 03/16/22 gram/dose oral powder #238 grams Current Visit Medications: Current Medications Generic Name Dose Route Start Last Admin Trade Name Carlosq PRN Reason Stop Dose Admin Hyoscyamine Sulfate 0.125 mg 04/02/22 07:03 Hyoscyamine 0.125 Mg Sl/Oral/Chew SL DIRECTED PRN Ringer's Solution 1,000 mls @ 80 mls/hr 04/02/22 06:00 04/02/22 07:37 IV 04/29/22 23:59 80 mls/hr INFUSION MARYANN Administration IV Miscellaneous Supplies 1 each 04/02/22 06:00 Iv Access IV 04/29/22 23:59 DIRECTED MARYANN Ondansetron HCl 4 mg 04/02/22 07:03 Ondansetron 4 Mg/2 Ml Vial IVP Q4H PRN PRN Nausea / Vomiting Sodium Chloride 0 ml 04/02/22 06:00 Normal Saline Flush 10 Ml Syr IV 04/29/22 23:59 PRN PRN Sodium Chloride 0 ml 04/02/22 06:00 Normal Saline 10 Ml Vial IJ 04/29/22 23:59 DIRECTED PRN Sterile Water 0 ml 04/02/22 06:00 Water,Injection,Sterile 10 Ml Vial IJ 04/29/22 23:59 DIRECTED PRN PFSH Active Problems Active Problems: Problem Status Onset Code Chronic abdominal pain R10.9, G89.29 Sleep pattern disturbance G47.20 Mild anxiety F41.9 Medical History Medical History Elevated lipase Fatigue 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 Nl pap/neg HPV in 2013 Hx of colonic polyps Benign. Right sided abdominal pain Total bilirubin, elevated Surgical History Surgical History Colonoscopy - IV Sedation (05/08/16) History of gynecologic surgery (~08/25/82) History of loop electrical excision procedure (LEEP) (~05/27/02) 03/27/1999 10/25/1982 Tobacco Smoking/Tobacco Use Status: Never Alcohol Alcohol Intake: current Alcohol intake frequency: 0-2 drinks per day Alcohol type: wine Substance Use Substance use: Never Substance use type: does not use Vital Signs and Lab Results Vital Signs Most Recent Vital Signs in EMR: Most Recent Vital Signs Temp Pulse Resp BP Pulse Ox 36.2 C L 86 16 110/73 100 04/02/22 07:25 04/02/22 07:25 04/02/22 07:25 04/02/22 07:25 04/02/22 07:25 Lab Results Blood Type / Crossmatch: No Data to Display Complete Blood Count: No Data to Display Complete Metabolic Panel: No Data to Display Liver Function Panel: No Data to Display Coagulation Panel: No Data to Display Cardiac Panel: No Data to Display Arterial Blood Gas: No Data to Display Venous Blood Gas: No Data to Display Pancreas Panel: No Data to Display Thyroid Panel: No Data to Display Infectious Disease: No Data to Display Blood Cultures: No Data to Display Toxicology Panel: No Data to Display Anesthesia Assessment and Plan Anesthesia History Personal History: No History of Anesthesia Complications Family History: No Family History of Anesthesia Complications Exercise Tolerance Exercise Tolerance: Metabolic Equivalents>4 Pertinent Negatives Pertinent Negatives: No Symptoms of GERD, No Major Cardiovascular Symptoms or Complaints, No Major Pulmonary Symptoms or Complaints and No History of CVA/TIA Cardiac & Pulmonary Exam Cardiac Exam: Normal S1/S2 Heart Sounds Pulmonary Exam: Clear Bilateral Breath Sounds Implantable Cardiac Device Does patient have a Pacemaker or an ICD?: No Airway Exam Known Difficult Airway: No Mallampati Class: 2 Mouth Opening: Normal (> 3cm) Thyromental Distance: Greater than 3 cm Neck Range of Motion: Full ROM Neck Circumference: Normal Teeth Condition: Normal Dentition ASA Classification ASA Score: ASA 2 Emergency Case?: No NPO Status NPO Status: NPO Clears >2 hours, Solids >8 hours Anesthesia Plan Resuscitation Status: Full Code Anesthesia Technique: General Anesthesia Airway Planned: Natural Airway Monitors Used: Standard Monitors
[2022-04-02 08:04] VITALS: BMI 21.9
--- NOTE | 2022-04-02 08:22 | BOWEL_PTH ---
PATIENT: Yee Jackson LOC: [facility] U#:[id number] AGE/SX: 61/F ROOM: RE04/02/[address]: Gilma Saab MD : 1960 BED: DIS: 04/02/2022 SPEC #: [id number] RECD: 04/02/22 11:16 STATUS: SUPA RE #: [id number] THOMAS: 04/02/22 08:[address]: Gilma Saab DEPT: Surgical Specimen RECD BY: Nasra Kimbrough ENTERED: 04/02/22 11:17 SP TYPE: Bowel OTHR DR: Marie Rao Tissues: 1 - BIOPSY BOWEL 2 - BIOPSY BOWEL Procedures: GROSS AND MICRO LEVEL 4 Comments: [id number]
[2022-04-02 08:43] VITALS: BP 113/74; PULSE 85; RESP 16; TEMP 36.3; O2SAT 99
[2022-04-02 09:11] VITALS: BP 100/66; PULSE 71; RESP 18; TEMP 36.3; O2SAT 100
--- NOTE | 2022-04-02 09:19 | W.ANESPOSTOP ---
Postoperative Evaluation Date, Time and Location Date Performed: 04/02/22 Time Performed: 08:50 Patient Location: Day Surgery Unit Vital Signs Most Recent Imported Vital Signs: Most Recent Vital Signs Temp Pulse Resp BP Pulse Ox 36.3 C L 71 18 100/66 100 04/02/22 09:11 04/02/22 09:11 04/02/22 09:11 04/02/22 09:11 04/02/22 09:11 Pain Score Most Recent Pain Score: Most Recent Pain Score Pain Level 0 04/02/22 09:11 Assessment Mental Status: Awake (Alert & Oriented to Patient Baseline) Airway and Respiratory Function: Patent airway with normal (patient baseline) respiratory exam Cardiovascular Function: Hemodynamically Stable Hydration Status: Adequately Hydrated Nausea & Vomiting: No Nausea or Vomiting Pain: Pt. Denies Any Pain Peripheral Nerve Block: Patient did not receive a nerve block
== END 2022-04-02 09:37 | disposition home or self-care (01) ==
PROVIDERS: PCP Naturopath; Visit Provider Surgery
PROC: 0DJD8ZZ Inspection of Lower Intestinal Tract, Via Natural or Artificial Opening Endoscopic (ICD-10-PCS; CPT 45378; principal; 2022-04-02 08:15)
DX: Z12.11 Encounter for screening for malignant neoplasm of colon (principal); K63.5 Polyp of colon; Z80.0 Family history of malignant neoplasm of digestive organs
CPT/HCPCS: 45380; 88305

== ENCOUNTER 2022-07-31 03:27 | Outpatient (CLI) | payer BC, SELFPAY ==
[2022-07-31 07:18] LABS: Abs Immature Grans 0.01 10^3/uL (0.0-0.06); Absolute Basophil Count 0.02 10^3/uL (0.0-0.2); Absolute Eosinophil Count 0.05 10^3/uL (0.0-0.7); Absolute Lymphocyte Count 1.15 10^3/uL (1.2-3.4); Absolute Monocyte Count 0.36 10^3/uL (0.1-0.8); Absolute Neutrophil Count 3.37 10^3/uL (1.2-6.7); Basophils % 0.4; HCT 39.5 % (36.0-46.0); HGB 13.6 g/dL (11.2-15.7); Immature Grans % 0.2; Lymphocytes % 23.2; MCH 32.4 pg (27.0-33.0); MCHC 34.4 % (32.0-36.0); MCV 94 fL (80-95); MPV 8.8 fL (8.0-11.0); Monocytes % 7.3; Neutrophils % 67.9; Platelet Count 282 10^3/uL (130-400); RDW 11.3 % (11.7-14.6); RDW-SD 38.5 fL; WBC 4.96 10^3/uL (4.4-10.8)
[2022-07-31 07:20] LABS: ESR 1 mm/hr (0-30)
[2022-07-31 07:26] LABS: Bilirubin Negative (Negative); Blood Negative (Negative); Clarity Clear (Clear); Glucose Negative (Negative); Ketones Negative (Negative); Leukocyte Esterase Negative (Negative); Nitrite Negative (Negative); Specific Gravity 1.015 (1.005-1.025); Urobilinogen 0.2 mg/dL (Up to 0.2); pH 7.5 (5-8)
[2022-07-31 07:40] LABS: Calculated LDL 79 mg/dL (<100); Cholesterol 169 mg/dL (<200); HDL Cholesterol 64 mg/dL (40-60); Triglyceride 131 mg/dL (<150)
[2022-07-31 07:50] LABS: C-Reactive Protein < 0.05 mg/dL (0.0-0.3); GGT 16 U/L (5-55)
[2022-07-31 09:56] LABS: ALT 22 U/L (14-59); AST 15 U/L (15-37); Alkaline Phosphatase 64 U/L (46-116); BUN 4 mg/dL (7-18); Bilirubin, Total 1.2 mg/dL (0.2-1.0); CREATININE 0.7 mg/dL (0.55-1.02); Calcium 8.9 mg/dL (8.5-10.1); Chloride 101 mmol/L (98-107); Estimated GFR 97.12 (mL/min/1.73m2); Glucose 94 mg/dL (74-106); Potassium 3.8 mmol/L (3.5-5.1); Sodium 137 mmol/L (136-145); Total Protein 6.9 g/dL (6.4-8.2)
[2022-08-02 19:04] LABS: 25-Hydroxy D Total 36 ng/mL; 25-Hydroxy D2 <4.0 ng/mL; 25-Hydroxy D3 36 ng/mL
== END 2022-07-31 03:28 | disposition home or self-care (01) ==
LOC: LBO 03:27
PROVIDERS: PCP Naturopath; Visit Provider Naturopath
DX: E55.9 Vitamin D deficiency, unspecified (principal); R10.9 Unspecified abdominal pain; Z13.220 Encounter for screening for lipoid disorders
CPT/HCPCS: 36415; 80053; 80061; 82306; 85652; 81003; 82977; 85025; 86140

== ENCOUNTER 2023-05-24 03:29 | Outpatient (CLI) | payer BC, SELFPAY ==
[2023-05-24 10:12] LABS: Abs Immature Grans 0.02 10^3/uL (0.0-0.06); Absolute Basophil Count 0.03 10^3/uL (0.0-0.2); Absolute Eosinophil Count 0.03 10^3/uL (0.0-0.7); Absolute Lymphocyte Count 1.22 10^3/uL (1.2-3.4); Absolute Monocyte Count 0.53 10^3/uL (0.1-0.8); Absolute Neutrophil Count 5.91 10^3/uL (1.2-6.7); Basophils % 0.4; Eosinophils % 0.4; HCT 40.1 % (36.0-46.0); HGB 14.1 g/dL (11.2-15.7); Immature Grans % 0.3; Lymphocytes % 15.8; MCH 33.3 pg (27.0-33.0); MCHC 35.2 % (32.0-36.0); MCV 95 fL (80-95); MPV 9.1 fL (8.0-11.0); Monocytes % 6.8; Neutrophils % 76.3; Platelet Count 314 10^3/uL (130-400); RBC 4.24 10^6/uL (3.93-5.22); RDW 11.8 % (11.7-14.6); RDW-SD 40.7 fL; WBC 7.74 10^3/uL (4.4-10.8)
[2023-05-24 10:42] LABS: ALT 26 U/L (14-59); AST 17 U/L (15-37); Alkaline Phosphatase 61 U/L (46-116); Anion Gap 4.5 mmol/L (3-11); BUN 7 mg/dL (7-18); Bilirubin, Total 0.7 mg/dL (0.2-1.0); CO2 28.5 mmol/L (21.0-32.0); CREATININE 0.8 mg/dL (0.55-1.02); Calcium 9.1 mg/dL (8.5-10.1); Chloride 99 mmol/L (98-107); Estimated GFR 82.23 (mL/min/1.73m2); Ferritin 94 ng/mL (8-252); Glucose 101 mg/dL (74-106); Potassium 4.4 mmol/L (3.5-5.1); Sodium 132 mmol/L (136-145); Total Protein 7.6 g/dL (6.4-8.2)
[2023-05-24 10:50] LABS: Iron 103 ug/dL (50-170); Total Iron Binding Capacity 315 ug/dL (250-450); Transferrin Sat 33 % (15-50)
[2023-05-24 10:52] LABS: Vitamin D 25 Total 41.5 ng/mL (30-100)
[2023-05-24 20:27] LABS: Homocysteine 8.9 umol/L (5.0-13.9)
[2023-05-28 10:49] LABS: Zinc, S 81 mcg/dL (60-106)
== END 2023-05-24 03:30 | disposition home or self-care (01) ==
LOC: LBO 03:29
PROVIDERS: PCP Naturopath; Visit Provider Naturopath
DX: R53.83 Other fatigue (principal); E55.9 Vitamin D deficiency, unspecified
CPT/HCPCS: 36415; 80053; 82306; 83090; 84630; 82728; 83540; 83550; 85025

== ENCOUNTER 2023-06-25 02:22 | Outpatient (CLI) | payer BC, SELFPAY ==
[2023-06-25 07:53] LABS: Bilirubin Negative (Negative); Blood Negative (Negative); Clarity Clear (Clear); Glucose Negative (Negative); Ketones Negative (Negative); Leukocyte Esterase Negative (Negative); Nitrite Negative (Negative); Specific Gravity 1.015 (1.005-1.025); Urobilinogen 0.2 mg/dL (Up to 0.2); pH 8.5 (5-8)
[2023-06-25 08:12] LABS: Hemoglobin A1C 4.8 % (<5.7)
[2023-06-26 10:05] LABS: Insulin 5.9 uIU/mL (<29.0)
== END 2023-06-25 02:23 | disposition home or self-care (01) ==
PROVIDERS: PCP Naturopath; Visit Provider Naturopath
DX: Z83.3 Family history of diabetes mellitus (principal); R82.998 Other abnormal findings in urine
CPT/HCPCS: 36415; 81003; 83036; 83525

== ENCOUNTER 2023-12-04 21:37 | Outpatient (REF) | payer MEDICAID, SELFPAY ==
[2023-12-04 21:17] LABS: Abs Immature Grans 0.02 10^3/uL (0.0-0.06); Absolute Basophil Count 0.03 10^3/uL (0.0-0.2); Absolute Eosinophil Count 0.04 10^3/uL (0.0-0.7); Absolute Lymphocyte Count 1.29 10^3/uL (1.2-3.4); Absolute Monocyte Count 0.44 10^3/uL (0.1-0.8); Absolute Neutrophil Count 3.56 10^3/uL (1.2-6.7); Basophils % 0.6 %; Eosinophils % 0.7 %; HCT 40.5 % (36.0-46.0); HGB 14.2 g/dL (11.2-15.7); Immature Grans % 0.4 %; MCH 32.9 pg (27.0-33.0); MCHC 35.1 % (32.0-36.0); MCV 94 fL (80-95); MPV 9.7 fL (8.0-11.0); Monocytes % 8.2 %; Neutrophils % 66.1 %; Platelet Count 306 10^3/uL (130-400); RBC 4.32 10^6/uL (3.93-5.22); RDW 11.3 % (11.7-14.6); RDW-SD 38.5 fL; WBC 5.38 10^3/uL (4.4-10.8)
[2023-12-04 21:31] LABS: ALT 23 U/L (14-59); AST 19 U/L (15-37); Albumin 4.6 g/dL (3.4-5.0); Alkaline Phosphatase 74 U/L (46-116); Anion Gap 8.9 mmol/L (3-11); BUN 5 mg/dL (7-18); CO2 28.1 mmol/L (21.0-32.0); CREATININE 0.6 mg/dL (0.55-1.02); Calcium 9.1 mg/dL (8.5-10.1); Chloride 97 mmol/L (98-107); Estimated GFR 100.17 (mL/min/1.73m2); Glucose 94 mg/dL (74-106); Lipase 75 U/L (16-77); Potassium 4.1 mmol/L (3.5-5.1); Sodium 134 mmol/L (136-145); Total Protein 7.6 g/dL (6.4-8.2)
== END 2023-12-04 21:38 | disposition home or self-care (01) ==
LOC: LBN 21:37
PROVIDERS: PCP Naturopath; Visit Provider Physician Assistant Medical
DX: R10.9 Unspecified abdominal pain (principal)
CPT/HCPCS: 80053; 83690; 85025

== ENCOUNTER → 2023-12-05 00:45 | Outpatient (CLI) | payer MEDICAID, SELFPAY ==
--- NOTE | 2023-12-05 | DI.US_ITS ---
Exam(s) US ABDOMEN EXAM: US ABDOMEN CLINICAL HISTORY: R10.9 Abd pain--Per call from provider ? gallbladder, pain both sides TECHNIQUE: Ultrasound abdomen performed using standard protocol. COMPARISON: US US ABDOMEN from 07/23/2018 US US ABDOMEN from 11/04/2019 FINDINGS: LIVER: Normal size and echogenicity. No focal liver lesions are seen. Of previously noted hemangio ma is not demonstrated on today's exam. GALLBLADDER: No evidence of cholelithiasis. No evidence of wall thickening. No pericholecystic fluid identified. 3 millimeter polyp noted. No follow-up recommended. DEL VALLE'S SIGN: Negative. BILIARY SYSTEM: No intrahepatic or extrahepatic biliary ductal dilation. KIDNEYS: Kidneys are symmetric in size. No evidence of renal calculi. No evidence of hydronephrosis. 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 PANCREAS: Normal where visualized. SPLEEN: Not enlarged. ABDOMINAL AORTA AND IVC: Visualized portions normal caliber. ASCITES: None seen. 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 3 millimeter gallbladder polyp. No acute abnorm ality. DATA REPOSITORY:
== END ==
PROVIDERS: PCP Naturopath; Visit Provider Physician Assistant Medical
DX: R10.9 Unspecified abdominal pain (principal); K82.4 Cholesterolosis of gallbladder; D17.71 Benign lipomatous neoplasm of kidney
CPT/HCPCS: 76700

== ENCOUNTER 2023-12-10 15:52 | Outpatient (CLI) | payer MEDICAID, SELFPAY ==
[2023-12-10 15:37] LABS: Bilirubin Negative (Negative); Blood Trace-intact (Negative); Clarity Clear (Clear); Glucose Negative (Negative); Ketones Negative (Negative); Leukocyte Esterase Negative (Negative); Nitrite Negative (Negative); Urobilinogen 0.2 mg/dL (Up to 0.2)
[2023-12-10 15:45] LABS: ALT 24 U/L (14-59); AST 18 U/L (15-37); Albumin 4.3 g/dL (3.4-5.0); Alkaline Phosphatase 83 U/L (46-116); Bilirubin, Direct 0.3 mg/dL (0.0-0.2); Bilirubin, Total 1.09 mg/dL (0.2-1.0); C-Reactive Protein < 0.50 mg/dL (<or=0.5); LDH 132 U/L (81-234); Total Protein 7.6 g/dL (6.4-8.2)
--- OUTSIDE RECORDS SUMMARY | 2023-12-10 15:58 | XMS_ITS | Data Portability ---
Author Organization [place] - [facility] [place] [address] Care Team Providers Care Senior Safety Support Manager Name Role Phone JOVTIA JOLIE Primary Care Provider Assessment No assessment recorded. Plan of Treatment Reminders Order Date Submit Date Provider Last Modified By Organization Details Last Modified Time Details Appointments None recorded. Lab urinalysis, dipstick 2023 024 [email or web address] [facility], [address] [place] [address], [address], [place], [address], 15:47:25 CBC w/ auto diff 2023 024 [facility] ([facility]), [address] [place] [address] [place], [address], 4 21:24:05 lipase, serum or plasma 2023 024 [facility] ([facility]), [address] [place] [address] [place], [address], 4 08:34:51 CMP, serum or plasma 2023 024 [facility] ([facility]), [address] [place] [address] [place], [address], 4 21:34:06 venipunctur e - Right Ac Butterfly 1 sst 1 Purple 2023 024 [email or web address] Not available 16:12:03 Referral None recorded. Procedures None recorded. Surgeries None recorded. Imaging US, abdomen, complete 2023 024 SHAME[facility], [address], [place], [address], 10:16:31 Medication Orders None recorded. Patient TargetsNo targets recorded. Patient Instructions Encounter Date Encounter Id Patient Instructions Last Modified By Organization Details Last Modified Time 12/04/2023 [id number] 1. Ultrasound carter s been ordered and will take place tomorrow morning at the hospital. You need to arrive at 845 with plans for the imaging to get done at 9. Once the studies have been done I will get results a few hours later and we will call you to review findings and discuss your laboratories. 2. Laboratories done today will have results back this evening but I will wait till I get your ultrasound studies and we will talk about them all at the same time. 3. I do not expect you should have any significant sudden worsening between now and then. If so please seek reevaluation. [email or web address] Not available 12/04/2023 15:29:14 Reason for Referral None Reported. Results Created Date Observation Date Name Description Value Unit Range Abnormal Flag LastModifiedBy Organization Detail LastModifiedTime 12/04/1912/04/2023 COMPL ETE BLOOD COUNT W/DIF F WBC 5.38 10_3/ uL 4.4-10 .8 normal Not Available [address] [place], [address] 12/04/2023 21:24:05 12/04/19 24 12/04/2023 COMPL ETE BLOOD COUNT W/DIF F RBC 4.32 10_6/ uL 3.93-5 .22 normal Not Available [address] [place], [address] 12/04/2023 21:24:05 12/04/19 24 12/04/2023 COMPL ETE BLOOD COUNT W/DIF F HGB 14.2 g/dL 11.2-1 5.7 normal Not Available [address] [place], [address] 12/04/2023 21:24:05 12/04/19 24 12/04/2023 COMPL ETE BLOOD COUNT W/DIF F HCT 40.5 % 36.0-4 6.0 normal Not Available [address] [place], [address] 12/04/2023 21:24:05 12/04/19 24 12/04/2023 COMPL ETE BLOOD COUNT W/DIF F MCV 94 fL 80-95 normal Not Available [address] [place], [address] 12/04/2023 21:24:05 12/04/19 24 12/04/2023 COMPL ETE BLOOD COUNT W/DIF F MCH 32.9 pg 27.0-3 3.0 normal Not Available [address] [place], [address] 12/04/2023 21:24:05 12/04/19 24 12/04/2023 COMPL ETE BLOOD COUNT W/DIF F MCHC 35.1 % 32.0-3 6.0 normal Not Available [address] [place], [address] 12/04/2023 21:24:05 12/04/19 24 12/04/2023 COMPL ETE BLOOD COUNT W/DIF F RDW 11.3 % 11.7-1 4.6 low Not Available [address] [place], [address] 12/04/2023 21:24:12/04/19 24 12/04/2023 COMPL ETE BLOOD COUNT W/DIF F platelet count 306 10_3/ uL 130-40 0 normal Not Available [address] [place], [address] 12/04/2023 21:24:05 12/04/19 24 12/04/2023 COMPL ETE BLOOD COUNT W/DIF F MPV 9.7 fL 8.0-11 .0 normal Not Available [address] [place], [address] 12/04/2023 21:24:05 12/04/19 24 12/04/2023 COMPL ETE BLOOD COUNT W/DIF F neutrophils % 66.1 % Not Available [address] [place], [address] 12/04/2023 21:24:05 12/04/19 24 12/04/2023 COMPL ETE BLOOD COUNT W/DIF F lymphocytes % 24.0 % Not Available [address] [place], [address] 12/04/2023 21:24:05 12/04/19 24 12/04/2023 COMPL ETE BLOOD COUNT W/DIF F monocytes % 8.2 % Not Available [address] [place], [address] 12/04/2023 21:24:05 12/04/19 24 12/04/2023 COMPL ETE BLOOD COUNT W/DIF F eosinophils % 0.7 % Not Available [address] [place], [address] 12/04/2023 21:24:05 12/04/19 24 12/04/2023 COMPL ETE BLOOD COUNT W/DIF F basophils % 0.6 % Not Available [address] [place], [address] 12/04/2023 21:24:05 12/04/19 24 12/04/2023 COMPL ETE BLOOD COUNT W/DIF F immature grans % 0.4 % Not Available [address] [place], [address] 12/04/2023 21:24:05 12/04/19 24 12/04/2023 COMPL ETE BLOOD COUNT W/DIF F nucleated RBC 0.0 % 0.0-0. 3 normal Not Available [address] [place], [address] 12/04/2023 21:24:05 12/04/19 24 12/04/2023 COMPL ETE BLOOD COUNT W/DIF F absolute neutrophil count 3.56 10_3/ uL 1.2-6. 7 normal Not Available [address] [place], [address] 12/04/2023 21:24:05 12/04/19 24 12/04/2023 COMPL ETE BLOOD COUNT W/DIF F absolute lymphocyte count 1.29 10_3/ uL 1.2-3. 4 normal Not Available [address] [place], [address] 12/04/2023 21:24:05 12/04/19 24 12/04/2023 COMPL ETE BLOOD COUNT W/DIF F absolute monocyte count 0.44 10_3/ uL 0.1-0. 8 normal Not Available [address] [place], [address] 12/04/2023 21:24:05 12/04/19 24 12/04/2023 COMPL ETE BLOOD COUNT W/DIF F absolute eosinophil count 0.04 10_3/ uL 0.0-0. 7 normal Not Available [address] [place], [address] 12/04/2023 21:24:05 12/04/19 24 12/04/2023 COMPL ETE BLOOD COUNT W/DIF F absolute basophil count 0.03 10_3/ uL 0.0-0. 2 normal Not Available [address] [place], [address] 12/04/2023 21:24:05 12/04/19 24 12/04/2023 COMPR EHENS NATALIE METAB OLIC PANEL calcium 9.1 mg/dL 8.5-10 .1 normal Not Available [address] [place], [address] 12/04/2023 21:34:05 12/04/19 24 12/04/2023 COMPR EHENS NATALIE METAB OLIC PANEL glucose 94 mg/dL 74-106 normal Not Available [address] [place], [address] 12/04/2023 21:34:05 12/04/19 24 12/04/2023 COMPR EHENS NATALIE METAB OLIC PANEL BUN 5 mg/dL 7-18 low Not Available [address] [place], [address] 12/04/2023 21:34:05 12/04/19 24 12/04/2023 COMPR EHENS NATALIE METAB OLIC PANEL creatinine 0.6 mg/dL 0.55-1 .02 normal Not Available [address] [place], [address] 12/04/2023 21:34:05 12/04/19 24 12/04/2023 COMPR EHENS NATALIE METAB OLIC PANEL estimated GFR 100.17 mL/min /1.73m 2 Not Available [address] [place], [address] 12/04/2023 21:34:05 12/04/19 24 12/04/2023 COMPR EHENS NATALIE METAB OLIC PANEL total protein 7.6 g/dL 6.4-8. 2 normal Not Available [address] [place], [address] 12/04/2023 21:34:05 12/04/19 24 12/04/2023 COMPR EHENS NATALIE METAB OLIC PANEL albumin 4.6 g/dL 3.4-5. 0 normal Not Available [address] [place], [address] 12/04/2023 21:34:05 12/04/19 24 12/04/2023 COMPR EHENS NATALIE METAB OLIC PANEL bilirubin, total 1.10 mg/dL 0.2-1. 0 high Not Available [address] [place], [address] 12/04/2023 21:34:05 12/04/19 24 12/04/2023 COMPR EHENS NATALIE METAB OLIC PANEL alk phos 74 U/L 46-116 normal Not Available [address] [place], [address] 12/04/2023 21:34:05 12/04/19 24 12/04/2023 COMPR EHENS NATALIE METAB OLIC PANEL sodium 134 mmol/ L 136-14 5 low Not Available [address] [place], [address] 12/04/2023 21:34:05 12/04/19 24 12/04/2023 COMPR EHENS NATALIE METAB OLIC PANEL potassium 4.1 mmol/ L 3.5-5. 1 normal Not Available [address] [place], [address] 12/04/2023 21:34:05 12/04/19 24 12/04/2023 COMPR EHENS NATALIE METAB OLIC PANEL chloride 97 mmol/ L 98-107 low Not Available [address] [place], [address] 12/04/2023 21:34:05 12/04/19 24 12/04/2023 COMPR EHENS NATALIE METAB OLIC PANEL CO2 28.1 mmol/ L 21.0-3 2.0 normal Not Available [address] [place], [address] 12/04/2023 21:34:05 12/04/19 24 12/04/2023 COMPR EHENS NATALIE METAB OLIC PANEL anion gap 8.9 mmol/ L 3-11 normal Not Available [address] [place], [address] 12/04/2023 21:34:05 12/04/19 24 12/04/2023 COMPR EHENS NATALIE METAB OLIC PANEL AST 19 U/L 15-37 normal Not Available [address] [place], [address] 12/04/2023 21:34:05 12/04/19 24 12/04/2023 COMPR EHENS NATALIE METAB OLIC PANEL ALT 23 U/L 14-59 normal Not Available [address] [place], [address] 12/04/2023 21:34:05 12/04/19 24 12/04/2023 LIPAS E lipase 75 U/L 16-77 normal Not Available [facility] [address] [place] [address] [place], [address], 12/04/2023 21:34:06 12/04/19 24 12/04/2023 urina lysis , dipst ick Leukocytes Negati ve Not Available [address], [place], [address], 12/04/2023 15:07:16 12/04/19 24 12/04/2023 urina lysis , dipst ick Nitrite negati ve Not Available [address], [place], [address], 12/04/2023 15:07:16 12/04/19 24 12/04/2023 urina lysis , dipst ick Urobilinogen .2 Not Available [address], [place], [address], 12/04/2023 15:07:16 12/04/19 24 12/04/2023 urina lysis , dipst ick Protein Negati ve Not Available [address], [place], [address], 12/04/2023 15:07:16 12/04/19 24 12/04/2023 urina lysis , dipst ick pH 6.0 Not Available [address], [place], [address], 12/04/2023 15:07:16 12/04/19 24 12/04/2023 urina lysis , dipst ick Blood Negati ve Not Available [address], [place], [address], 12/04/2023 15:07:16 12/04/19 24 12/04/2023 urina lysis , dipst ick Specific [place] 1.005 Not Available [address], [place], [address], 12/04/2023 15:07:16 12/04/19 24 12/04/2023 urina lysis , dipst ick Ketone Negati ve Not Available [address], [place], [address], 12/04/2023 15:07:16 12/04/19 24 12/04/2023 urina lysis , dipst ick Bilirubin Negati ve Not Available [address], [place], [address], 12/04/2023 15:07:16 12/04/19 24 12/04/2023 urina lysis , dipst ick Glucose Negati ve Not Available [address], [place], [address], 12/04/2023 15:07:16 12/04/19 24 12/04/2023 urina lysis , dipst ick Appearance Clear Not Available [address], [place], [address], 12/04/2023 15:07:16 12/04/19 24 12/04/2023 urina lysis , dipst ick Color Pale Yellow Not Available [address], [place], [address], 12/04/2023 15:07:16 12/04/19 24 04/02/2022 colon oscop y outco mes repor ting* No observ ation record ed. BARCODE Not Available 12/04/2023 18:52:56 12/05/19 24 12/05/2023 US, abdom en, compl ete Patien t Name: Selina Jackson Unit #: [id number] Loc: DI Orderi ng Provid er: Radha Guerrier Accoun t #: [id number] Status : REG CLI Primar y Care Provid er: Sachi Ngo Date of Exam: Sex: F Admiss ion Date: : 1959 Age: 63 Exam(s ) US ABDOME N EXAM: US ABDOME N CLINIC AL HISTOR Y: R10.9 Abd pain-- Per call from provid er ? gallbl adder, pain both sides TECHNI QUE: Ultras ound abdome n perfor med using standa rd protoc ol. COMPAR GERMAINE: US US ABDOME N from 2018 US US ABDOME N from 2019 FINDIN GS: LIVER: Normal size and echoge nicity . No focal liver lesion s are seen. Of previo usly noted kushal ioma is not demons trated on today' s exam. GALLBL ADDER: No eviden ce of cholel ithias is. No eviden ce of wall thicke indio. No perich olecys tic fluid identi fied. 3 millim eter polyp noted. No follow -up recomm ended. DEL VALLE 'S SIGN: Negati ve. BILIAR Y SYSTEM : No intrah epatic or extrah epatic biliar y ductal dilati on. KIDNEY S: Kidney s are symmet marilu in size. No eviden ce of renal calcul i. No eviden ce of hydron ephros is. Stable 8 millim eter angiom yolipo ma noted in the left kidney . PANCRE : Normal where visual ized. SPLEEN : Not enlarg ed. ABDOMI NAL AORTA AND IVC: Visual ized portio ns normal calibe r. ASCITE S: None seen. IMPRES ELLIS: Stable findin gs of small left renal angiom yolipo ma. 3 millim eter gallbl adder polyp. No acute abnorm ality. DATA REPOSI TORY: Ordere d By: Radha Guerrier CC: ------ ------ ------ ------ ------ ------ ------ ------ ------ ------ ------ ------ - Dictat ed By: Diogenes Hernandez [id number] [id number] Transc ribed By: Elton Cho 935 This is privil eged, confid ential inform ation intend ed only for the provid er named. Any use or distri bution by any person other than this [facility] er is strict ly prohib ited. If you receiv e this report in error, please notify us immedi ately at [phone] and return the origin al report to us at the addres s above. Thank- you. [email or web address] [facility] [address], [place], [address], 12/05/2023 13:50:53 12/05/19 24 12/05/2023 US, abdom en, compl ete No observ ation record ed. [email or web address] [facility] [address], [place], [address], 12/05/2023 11:57:41 Result Notes None recorded. Problems Name Status Onset Date Resolution Date Notes Provider Name and Address Organization Details Recorded Time Fatigue Active 2015 Problem Code: R53.83; Problem Code Type: ICD-10; Not Available [facility] 3 04:58:18 Cough Active 201509/16/2015 - Comments only - Nathalie Bridges MD - patient's lung exam is clearand she has symptoms that are consistent with allergic rhinitis and postnasal drip. Some concern that she may D has an allergy to mold or something else in her environment. We also discussed that chronic allergies can certainly make A person fatigued though there are many other causes. she states that she has a history of having marginally low thyroid which is much better when she is on iodine supplements. Problem Code: R05; Problem Code Type: ICD-10; Not Available [facility] 3 04:58:18 Menopause present Active 2015 Problem Code: Z78.0; Problem Code Type: ICD-10; Not Available [facility] 3 04:58:18 History of dysplasia of cervix Active 2015 Problem Code: Z87.410; Problem Code Type: ICD-10; Not Available [facility] 3 04:58:18 Adult health examination Active 201509/16/2015 - Comments only - Nathalie Bridges MD - [facility] her GAME OPERATOR care with the women's wellness but has not had a complete physical exam for quite some time. We will go ahead and get her scheduled for fasting blood work and then a follow-up physical. I discussed with her that evaluated over sure if she truly has parasites in her stool and if they are resolved is to have stool specimens done she was not interested in having that done at this time. We will draw CBC and check an eosinophil count. She's going to need to have her lipids time CMP TSH as well. Problem Code: Z00.00; Problem Code Type: ICD-10; Not Available [facility] 3 04:58:18 Hyperlipidemi a screening Active 2015 Problem Code: Z13.220; Problem Code Type: ICD-10; Not Available [facility] 3 04:58:18 Cystitis Completed 202008/15/2020 08/08/2020 - Comments only - Cristina Nuno APRN RN, L.AC - Urine dip performed in clinic is bland. History and physical exam do not support a UTI. I do have suspicion for interstitial cystitis. Patient is generally well-appearin g, afebrile, non toxic, no acute distress, well hydrated, stable on exam. I printed and reviewed information on interstitial cystitis and verbally reviewed follow-up instructions in detail with patient. I recommended follow-up with PCP for persistent symptoms as a referral to urology may be indicated. Follow-up precautions/E D precautions are discussed in detail. Patient verbalizes understanding and agreement with this plan of care. All questions answered. Problem Code: N30.90; Problem Code Type: ICD-10; Not Available [facility] 3 04:58:18 Increased frequency of urination Active 2020 Problem Code: R35.0; Problem Code Type: ICD-10; Not Available [facility] 3 04:58:18 Abdominal pain Active [address], [place], [address] , [place] [facility] 4 15:25:03 Problem Notes None recorded. Procedures Surgical History None recorded. Imaging Results Imaging Date Name Status LastModified by Organiz ation Details LastModified Time 04/02/2022 colonoscopy outcomes reporting* completed BARCODE Information not available 12/04/2023 18:52:56 12/05/2023 US, abdomen, complete completed [email or web address] [facility] [address], [place], [address], 12/05/2023 13:50:53 12/05/2023 US, abdomen, complete completed [email or web address] [facility] [address], [place], [address], 12/05/2023 11:57:41 Procedure Notes None recorded. Medical Equipment None Reported. Allergies Allergen ID Allergen Name Allergen Category Reaction Reaction Severity Criticality Documentation Date Start Date Code Code System Note Provider Name and Address Organization Details Recorded Time 36018 sulfadiaz ine medicatio n Not available Not available Not available 12/04/2023 31374 RxNorm JUNE WILLOUGHBY, [facility] 14:59:00 Medications Name Sig Start Date Stop Date Status Note LastModified by Organization Details LastModified Time B Complex active Not Available Not Cecy ilable Not Available Fish Oil 300 mg-1,000 mg capsule 2 tab a day 016 2023 completed Not Available Not Available Not Available Kelp (iodine) 150 mcg tablet 1 tab a day 016 2023 completed Not Available Not Available Not Available Vitals Date Recorded Body height Body mass index (BMI) Body weight Respiratory rate Oxygen saturation Oxygen saturation in Arterial blood by Pulse oximetry Heart rate Body temperature Systolic blood pressure Diastolic blood pressure Provider Name and Address Organization Details Last Updated DateTime 160.02 cm 22.1 kg/m2 13938.0 5 g 17 /min 98 % 98 % 76 /min 98 [degF] 130 mm[Hg] 92 mm[Hg] MANUEL CONWAY [place] [facility] 15:01:49 Social History Question Answer Notes LastModified by Organizat ion Details LastModified Time Tobacco Smoking Status Never Smoker JUNE WILLOUGHBY, [facility] 12/04/2023 15:00:21 What Was The Date Of Your Most Recent Tobacco Screening? 12/04/2023 [email or web address] Information not available 12/04/2023 Has Tobacco Cessation Counseling Been Provided? No [email or web address] Information not available 12/04/2023 Do You Or Have You Ever Used Any Other Forms Of Tobacco Or Nicotine? No [email or web address] Information not available 12/04/2023 Sex: Female Functional Status None recorded. Mental Status None recorded. Family History Relationship Description Onset Age of this Age Resolved Age Notes Mother Family history of ca ncer of colon Notes:*Problem: father with colon cancer Sister with colon cancer MGM DM Mother DM Medical History No medical history recorded. Gynecological HistoryNo gynecological history recorded. Obstetrics History GPAL:G 0 P 0 0 0 0 Immunizations Vaccine Type Date Status Provider Name and Address Organization Details Recorded Time COVID-19, mRNA, LNP-S, PF, 30 mcg/0.3 mL dose 08/07/2020 completed Not Available [facility] 04/05/2023 06:29:56 COVID-19, mRNA, LNP-S, PF, 30 mcg/0.3 mL dose, bhumika-sucrose 09/04/2020 completed ACOSTA Alvarez, [facility] 12/06/2023 16:17:37 COVID-19, mRNA, LNP-S, PF, 30 mcg/0.3 mL dose, bhumika-sucrose 06/06/2021 completed ACOSTA lAvarez, [facility] 12/06/2023 16:17:41 influenza, unspecified formulation 05/02/2023 completed Melissa Lau RN null, [facility] 12/06/2023 16:17:53 Tdap 08/02/2022 completed ACOSTA Alvarez, [facility] 12/06/2023 16:18:02 Past Encounters Encounter ID Performer Location Encounter Start Date Encounter Closed Date Diagnosis/Indication Diagnosis SNOMED-CT Code [id number] RADHA GUERRIER PA-C [address] [address] 12/04/2023 14:00:09 12/04/2023 15:30:26 Abdominal pain 14868232 Health Concerns Section Related Observation LastModified by Organization Detai ls LastModified Time None Recorded Concern Status LastModified by Organization Details LastModified Time None Recorded Advance Directives Directive None Recorded Payers Encounter Date Sequence Insurance Name Policy Number Policy [place] Covered Member ID [place] Member ID Guarantor Name 12/04/2023 1 [facility] (MEDICAID) Yee Jackson [id number] Yee Jackson Notes Date Note Type Note Provider Name and Address Organization Details Recorded Time 12/04/2023 text/html HPI Notes: Yee is a 63-year-old female who presents with pain which began in her back 1 week ago. She does not believe it is muscular skeletal in nature. She did notice it first when she was jumping on a floor trampoline which she does for about 5 minutes most days for some lymphatic drainage. She has been doing this for a long time. She did not necessarily do anything to hurt herself while she was doing this. The following day she drove to visit with family in [place] driving about an hour and 1/2 to 2 hours which is not unusual for her. She visited with several family members and did not eat her normal diet. She typically is a vegan but did eat chicken as well as ribeye. She states she had a flare night after eating the rib eye and she questioned if maybe it was more of her gallbladder. She was told about 4 years ago that she had some sludge in her gallbladder and some polyps. She changed her eating habits and that greatly improved discomfort. She was feeling more pain on the right side on but more so on the back left side in the front. Her gallbladder pain is typically in the right side and/or sometimes at the right shoulder. She states she feels like her kidneys are aching. 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 This was not heavy nor was she bending over to pick it up audibly. Since her symptoms have begun she has not developed fevers or chills. No nausea or vomiting. Does have some diarrhea which is not unusual for her. She has absolutely no urinary complaints such as urgency, frequency, dysuria or hematuria. She denies chest pain or shortness of breath. She does note however if she coughs or sneeze that pain in her back region tends to be worse. She has not taken any medications to help improve symptoms. RADHA GUERRIER PA-C [address], [place], [address], [facility]. 12/04/2023 15:48:38 OBGyn Episode No OBEpisode recorded.
--- OUTSIDE RECORDS SUMMARY | 2023-12-10 15:58 | XMS_ITS | Encounter Summary ---
Author Organization [facility] Address [address] [place] [address] Care Team Providers Care Director Of Psychology Name Role Phone León Alejandro Primary Care Provider [phone] Encounter Details Date Type Department Care Team (Late st Contact Info) Description 04/02/[address] [facility] Pathology & Laboratory Medicine - [address] [address] Robb Saab MD [address] [place] [id number] Encounter for other general examination Social History Tobacco Use Types Packs/Day Years Used Date Smoking Tobacco: Never Assessed Sex and Gender Information Value Date Recorded Sex Assigned at Not on file Gender Identity Not on file Sexual Orientation Not on file documented as of this encounter Plan of Treatment Not on file documented as of this encounter Procedures Procedure Name Priority Date/Time Associated Diagnosis Comments SURGICAL PATHOLOGY Today 04/02/2022 8: 22 EST Encounter for other general examination documented in this encounter Results * SURGICAL PATHOLOGY (04/02/2022 8:22 EST) Note to Patient The following pathology results have been interpreted by your pathologist and may be available to you before your health provider has had the opportunity to review them. Please allow time for your provider to receive these results and explore management options, if applicable. 04/04/2022 10:52 [facility] Final Diagnosis A. COLON, CECUM, POLYPS x2: - Fragments of tubular adenomas. B. COLON, TRANSVERSE, POLYP: - Sessile serrated adenoma. 04/04/2022 10:52 [facility] Attestation By the signature below, the attending physician certifies that they have 1) personally conducted a gross and/or microscopic examination of the described specimen(s), and/or personally interpreted the results of laboratory testing of the described specimen(s), and 2) personally rendered or confirmed the above diagnosis. 04/04/2022 10:52 [facility] at 1052 Clinical History Family hx colon cancer 04/04/2022 10:52 [facility] Gross Description A. Received in formalin labelled with proper patient identification (initials D, M) and cecal polyp x2 are 4 morel tissues (0.4 x 0.1 x 0.1 cm to 0.1 x 0.1 x 0.1 cm). Entirely submitted in A1. B. Received in formalin labelled with proper patient identification (initials D, M) and transverse colon polyp is a single morel tissue fragment (0.9 x 0.1 x 0.1 cm). Submitted intact in B1. SHRAVAN VELAZQUEZ 04/03/2022 7:24 04/04/2022 10:52 [facility] Performing Lab [facility] 04/04/2022 10:52 [facility] Scanned Images 04/04/2022 10:52 [facility] Tissue ENTIRE TRANSVERSE COLON / Unknown 04/02/2022 8:22 EST 04/02/2022 17:43 EST Tissue specimen (specimen) TRANSVERSE COLON STRUCTURE / Unknown 04/02/2022 8:22 EST 04/02/2022 17:43 EST Robb Saab MD PATHOLOGY ORDERKerry [facility] [address] [place] [address] documented in this encounter Visit Diagnoses Diagnosis Encounter for other general examination documented in this encounter Care Teams Director Of Psychology Relationship Specialty Start Date End Date León Alejandro DO [address] [place] [address] [address] [place] [address] PCP - General 07/28/10 documented as of this encounter
--- OUTSIDE RECORDS SUMMARY | 2023-12-10 15:58 | XMS_ITS | Referral Summary ---
Author Organization [facility] Address [address] [place] [address] Care Team Prov[address] Care Court Security Officer Name Role Phone León Alejandro Primary Care Provider [phone] Social History Tobacco Use Types Packs/Day Years Used Date Smoking Tobacco: Never Assessed Sex and Gender Information Value Date Recorded Sex Assigned at Not on file Gender Identity Not on file Sexual Orientation Not on file Plan of Treatment Not on file Care Teams Court Security Officer Relationship Specialty Start Date End Date León Alejandro DO [address] [place] [address] [place] [address] PCP - General 07/28/10
--- OUTSIDE RECORDS SUMMARY | 2023-12-10 15:58 | XMS_ITS | Encounter Summary ---
Author Organization [facility] Address [address] [place] [address] Care Team Providers Care Youth Program Director Name Role Phone FlaviaLeón whyte Primary Care Provider [phone] Encounter Details Date Type Department Care Team (Late st Contact Info) Description 2023 Lab Requisition [facility] Pathology & Laboratory Medicine - [address] [id number] Outr Resulting Lab, Provider Social History Tobacco Use Types Packs/Day Years Used Date Smoking Tobacco: Never Assessed Sex and Gender Information Value Date Recorded Sex Assigned at Not on file Gender Identity Not on file Sexual Orientation Not on file documented as of this encounter Plan of Treatment Not on file documented as of this encounter Procedures Procedure Name Priority Date/Time Associated Diagnosis Comments HOMOCYSTEINE Routine 2023 10:03 EST documented in this encounter Results * HOMOCYSTEINE (2023 10:03 EST) Homocysteine 8.9 5.0 - 13.9 umol/L 2023 20:23 EST [facility] Blood VENOUS BLOOD / Unknown 2023 10:03 EST 2023 19:47 EST Narrative [facility] - 2023 20:23 EST Reference range may not apply to non-fasting samples. ??It is not recommended that EDTA plasma and serum from the same patient be used interchangeably. ??Serum concentrations have been observed to be up to 10% higher than EDTA plasma. Reference range may not apply to serum results. Provider Outr Resulting Lab CHEMISTRY & BLOOD GAS ORDERABLES [facility] [address] [place] [address] documented in this encounter Visit Diagnoses Not on filedocumented in this encounter Care Teams Youth Program Director Relationship Specialty Start Date End Date León Alejandro DO [address] [place] [address] [address] [place] [id number] PCP - General 07/28/10 documented as of this encounter
--- OUTSIDE RECORDS SUMMARY | 2023-12-10 15:58 | XMS_ITS | Clinical Summary ---
Author Organization [facility] Address [address] [place] [address] Care Team Providers Care Machine Sweeper Brush Maker Name Role Phone FlaviaLeón whyte Primary Care Provider [phone] Social History Tobacco Use Types Packs/Day Years Used Date Smoking Tobacco: Never Assessed Sex and Gender Information Value Date Recorded Sex Assigned at Not on file Gender Identity Not on file Sexual Orientation Not on file Plan of Treatment Health Maintenance Due Date Last Done Comments Hepatitis C Screen 1960 RSV Immunization ( o r 60+ Years) (1 - 1-dose 60+ series) 2019 COVID-19 Vaccine ( season) 2023 Care Teams Machine Sweeper Brush Maker Relationship Specialty Start Date End Date León Alejandro DO [address] [place] [address] [place] [address] PCP - General 07/28/10
--- OUTSIDE RECORDS SUMMARY | 2023-12-10 15:58 | XMS_ITS | Encounter Summary ---
Author Organization [facility] Address [address] [place] [address] Care Team Providers Care Practice Or Student Teacher Name Role Phone León Alejandro Primary Care Provider [phone] Encounter Details Date Type Department Care Team (Late st Contact Info) Description 06/25/2023 Lab Requisition [facility] Pathology & Laboratory Medicine - [address] [id number] Outr Resulting Lab, Provider Social History Tobacco [...] Procedure Name Priority Date/Time Associated Diagnosis Comments INSULIN Routine 06/25/2023 7:33 EST documented in this encounter Results * INSULIN (06/25/2023 7:33 EST) Insulin 5.9 <29.0 uIU/mL 06/26/2023 10:00 EST [facility] Comment: Displayed Reference Range applies to fasting specimens only. Blood VENOUS BLOOD / Unknown 06/25/2023 7:33 EST 06/25/2023 16:58 EST Provider Outr Resulting Lab CHEMISTRY & BLOOD GAS ORDERABLES [facility] [address] [place] [address] documented in this encounter Visit Diagnoses Not on filedocumented in this encounter Care Teams Practice Or Student Teacher Relationship Specialty Start Date End Date León Alejandro DO [address] [place] [address] [address] [place] [address] PCP - General 07/28/10 documented as of this encounter
--- OUTSIDE RECORDS SUMMARY | 2023-12-10 15:58 | XMS_ITS | Continuity of Care Document ---
Author Organization [place] [facility] Address [address] [place] [address] [address] [place] [address] Care Team Providers Care Hr Generalist Name Role Phone JOVITA JOLIE Primary Care Provider Assessment No assessment recorded. Plan of Treatment Reminders Order Date Submit Date Provider Last Modified By Organization Details Last Modified Time Details Appointments None recorded. Lab urinalysis, dipstick 2023 024 [email or web address] [facility], [address] [place] [address], [address], [place], [address], 15:47:25 CBC w/ auto diff 2023 024 [facility]), [address] [place] [address] [place], [address], 4 21:24:05 lipase, serum or plasma 2023 024 [facility]), [address] [place] [address] [place], [address], 4 08:34:51 CMP, serum or plasma 2023 024 [facility]), [address] [place] [address] [place], [address], 4 21:34:06 venipunctur e - Right Ac Butterfly 1 sst 1 Purple 2023 024 [email or web address] Not available 16:12:03 Referral None recorded. Procedures None recorded. Surgeries None recorded. Imaging US, abdomen, complete 2023 024 [facility], [address], [place], [address], 10:16:31 Medication Orders None recorded. Patient TargetsNo targets recorded. Patient Instructions Encounter Date Encounter Id Patient Instructions Last Modified By Organization Details Last Modified Time 12/04/2023 [id number] 1. Ultrasound carter s been ordered and [...] Range Abnormal Flag LastModifiedBy Organization Detail LastModifiedTime 12/04/19 24 12/04/2023 urina lysis , dipst ick Leukocytes Negati ve Not Available [address], [place], [address], 12/04/2023 15:07:16 12/04/19 24 12/04/2023 urina lysis , dipst ick Nitrite negati ve Not Available [address], [place], [address], 12/04/2023 15:07:16 12/04/19 24 12/04/2023 urina lysis , dipst ick Urobilinogen .2 Not Available Nor [address], [place], [address], 12/04/2023 15:07:16 12/04/19 24 12/04/2023 urina lysis , dipst ick Protein Negati ve Not Available [address], [place], [address], 12/04/2023 15:07:16 12/04/19 24 12/04/2023 urina lysis , dipst ick pH 6.0 Not Available [address], [place], [address], 12/04/2023 15:07:16 12/04/19 24 12/04/2023 urina lysis , dipst ick Blood Negati ve Not Available [address], [place], [address], 12/04/2023 15:07:16 12/04/19 24 12/04/2023 urina lysis , dipst ick Specific [place] 1.005 Not Available [address], [place], [address], 12/04/2023 15:07:16 12/04/19 24 12/04/2023 urina lysis , dipst ick Ketone Negati ve Not Available [address], [place], [address], 12/04/2023 15:07:16 12/04/19 24 12/04/2023 urina lysis , dipst ick Bilirubin Negati ve Not Available [address], [place], [address], 12/04/2023 15:07:16 12/04/19 24 12/04/2023 urina lysis , dipst ick Glucose Negati ve Not Available [address], [place], [address], 12/04/2023 15:07:16 12/04/19 24 12/04/2023 urina lysis , dipst ick Appearance Clear Not Available [address], [place], [address], 12/04/2023 15:07:16 12/04/19 24 12/04/2023 urina lysis , dipst ick Color Pale Yellow Not Available [address], [place], [address], 12/04/2023 15:07:16 12/04/19 24 04/02/2022 colon oscop y outco mes repor ting* No observ ation record ed. BARCODE Not Available 12/04/2023 18:52:56 12/05/19 24 12/05/2023 US, abdom en, compl ete Patien t Name: Selina Jackson Unit #: [id number] Loc: DI Orderi ng Provid er: Radha Guerrier Accoun t #: [id number] Status : REG CLI Primar [...] s are seen. Of previo usly noted kuhsal ioma is not demons trated on today' [...] ephros is. Stable 8 millim eter angiom shakira montiel noted in the left kidney . PANCRE : Normal where visual ized. SPLEEN : Not enlarg ed. ABDOMI NAL AORTA AND IVC: Visual ized portio ns normal calibe r. ASCITE S: None seen. IMPRES ELLIS: Stable findin gs of small left renal angiom railipo tiana. 3 millim eter gallbl adder polyp. No [...] bution by any person other than this [facility] er is strict ly prohib ited. If you receiv e this report in error, please notify us immedi ately at and return the origin al report to us at the addres s above. Thank- you. [email or web address] [facility] [address], [place], [address], 12/05/2023 13:50:53 12/05/19 24 12/05/2023 US, abdom en, compl ete No observ ation record ed. [email or web address] [facility] [address], [place], [address], 12/05/2023 11:57:41 Result Notes None recorded. Problems Name Status Onset Date Resolution Date Notes Provider Name and Address Organization Details Recorded Time Fatigue Active 2015 Problem Code: R53.83; Problem Code Type: ICD-10; Not Available [facility] 3 04:58:18 Cough Active 201509/16/2015 - [...] R05; Problem Code Type: ICD-10; Not Available [facility] 3 04:58:18 Menopause present Active 2015 Problem Code: Z78.0; Problem Code Type: ICD-10; Not Available [facility] 3 04:58:18 History of dysplasia of cervix Active 2015 Problem Code: Z87.410; Problem Code Type: ICD-10; Not Available [facility] 3 04:58:18 Adult health examination Active 201509/16/2015 - Comments only - Nathalie Bridges MD - [facility] her DIVISION OPERATIONS MANAGER care with the women's wellness but has [...] Z00.00; Problem Code Type: ICD-10; Not Available [facility] 3 04:58:18 Hyperlipidemi a screening Active 2015 Problem Code: Z13.220; Problem Code Type: ICD-10; Not Available [facility] 3 04:58:18 Cystitis Completed 202008/15/2020 08/08/2020 - [...] N30.90; Problem Code Type: ICD-10; Not Available [facility] 3 04:58:18 Increased frequency of urination Active 2020 Problem Code: R35.0; Problem Code Type: ICD-10; Not Available [facility] 3 04:58:18 Abdominal pain Active [address], [place], [address] , [facility] 4 15:25:03 Problem Notes None recorded. Medical Equipment None Reported. Allergies Allergen ID Allergen Name Allergen Category Reaction Reaction Severity Criticality Documentation Date Start Date Code Code System Note Provider Name and Address Organization Details Recorded Time 21193 sulfadiaz ine medicatio n Not available Not available Not available 12/04/2023 48500 RxNorm TIANA WILLOUGHBY, [facility] 4 14:59:00 Medications Name Sig Start Date Stop [...] and Address Organization Details Last Updated DateTime 4 160.02 cm 22.1 kg/m2 80009.0 5 g 17 /min 98 % 98 % 76 /min 98 [degF] 130 mm[Hg] 92 mm[Hg] MANUEL CONWAY MA [facility] 15:01:49 Social History Question Answer Notes LastModified by Organizat ion Details LastModified Time Tobacco Smoking Status Never Smoker MANUEL CONWAY [place] null, [facility] 12/04/2023 15:00:21 What Was The Date Of Your Most Recent Tobacco Screening? 12/04/2023 [email or web address] Information not available 12/04/2023 Has Tobacco Cessation Counseling Been Provided? No [email or web address] Information not available 12/04/2023 Do You Or Have You Ever Used Any Other Forms Of Tobacco Or Nicotine? No [email or web address] Information not available 12/04/2023 Sex: Female Functional [...] mcg/0.3 mL dose 08/07/2020 completed Not Available [facility] 04/05/2023 06:29:56 COVID-19, mRNA, LNP-S, PF, 30 mcg/0.3 mL dose, bhumika-sucrose 09/04/2020 completed Melissa Lau RN null, [facility] 12/06/2023 16:17:37 COVID-19, mRNA, LNP-S, PF, 30 mcg/0.3 mL dose, bhumika-sucrose 06/06/2021 completed Melissa Lau RN null, [facility] 12/06/2023 16:17:41 influenza, unspecified formulation 05/02/2023 completed Melissa Lau RN null, [facility], [facility] 12/06/2023 16:17:53 Tdap 08/02/2022 completed Melissa Lau RN null, [facility] 12/06/2023 16:18:02 Past Encounters Encounter ID Performer Location Encounter Start Date Encounter Closed Date Diagnosis/Indication Diagnosis SNOMED-CT Code [id number] RADHA GUERRIER PA-C [address] [place] [address] 12/04/2023 14:00:09 12/04/2023 15:30:26 Abdominal pain [id number] Health Concerns Section Related Observation LastModified by Organization Detai ls LastModified Time None Recorded Concern Status LastModified by Organization Details LastModified Time None Recorded Payers Encounter Date Sequence Insurance Name Policy Number Policy [place] Covered Member ID [place] Member ID Guarantor Name 12/04/2023 1 [facility] (MEDICAID) Yee Payne Renetta [id number] Yee Jackson Notes Date Note Type Note [...] she drove to visit with family in [place] driving about an hour and 1/2 to [...] a moment where she bent over to pick pulling machine tender a very small cooler when she was [...] symptoms. RADHA GUERRIER PA-C [address], [place], [address], [facility]. 12/04/2023 15:48:38 OBGyn Episode No OBEpisode recorded.
--- OUTSIDE RECORDS SUMMARY | 2023-12-10 15:58 | XMS_ITS | Data Portability ---
Author Organization [place] - [facility], MAIN OFFICE [place] [address] Assessment Encounter Date Assessment Date Assessment LastModified by Organization Details LastModified Time 08/16/2022 08/16/2022 This patient PTO for a consented visit of minutes duration and was spent in face to face consultation with the patient and/or coordination of care. , , and were discussed and/or outlined below. Lab orders Follow-up recommended below or sooner if any new concerns arise. Not available 08/18/2022 16:40:20 05/16/2023 05/16/2023 Patient with fatigue and malaise . Advised patient to eat properly, get adequate sleep and attempt to exercise. I recommend testing as per orders below to evaluate for:. Patient to follow up as directed. I spent a total of 45 minutes face to face time with this patient and 35min of that time was spent in counseling and coordination of care with that patient as described in the progress note and /or: recommended diagnostic studies, risk factor reduction, and instructions for treatment and follow-up. Not available 06/25/2023 06:19:26 06/13/2023 06/13/2023 Patient presented for follow up of labs. Studies ordered as below. Discussed plan with patient, who expressed understanding. Follow up as noted below. I spent a total of 45 minutes face to face time with this patient and all of that time was spent in counseling and coordination of care with that patient as described in the progress note and /or: diagnostic results and impressions, risk factor reduction, recommended diagnostic studies, and instructions for treatment and follow-up. Not available 06/13/2023 21:20:58 07/11/2023 07/11/2023 Patient presented for follow up of labs. Studies ordered as below. Discussed plan with patient, who expressed understanding. Follow up as noted below. I spent a total of 45 minutes face to face time with this patient and all of that time was spent in counseling and coordination of care with that patient as described in the progress note and /or: diagnostic results and impressions, importance of compliance with treatment plan, pt and family education, risk factor reduction, and instructions for treatment and follow-up. Not available 08/17/2023 16:07:27 Plan of Treatment Reminders Order Date Submit Date Provider Last Modified By Organization Details Last Modified Time Details Appointments ESTABLISH ED PATIENT 45 2023 01:15P Stevie Rao, [place] Not available Not available Not available ESTABLISH ED PATIENT 45 2023 11:00A Stevie Rao, [place] Not available Not available Not available Lab vitamin D, 25-hydrox y, total, serum 2022 023 [facility] [address] [place] [address] [place], [address], 11/24/2023 05:01:58 zinc, RBC 2022 023 [facility] ([facility] [address] [place] [address] [place], [address], 11/24/2023 05:01:58 iron + TIBC + ferritin, serum 2022 023 [facility] ([facility] [address] [place] [address] [place], [address], 11/24/2023 05:01:58 CBC w/ diff 2022 023 [facility] [address] [place] [address] [place], [address], 11/24/2023 05:01:58 CMP, serum or plasma 2022 023 [facility] ([facility] [address] [place] [address] [place], [address], 11/24/2023 05:01:58 homocyste ine, serum or plasma 2022 023 [facility] [address] [place] [address] [place], [address], 11/24/2023 05:01:58 urinalysi s, complete 2023 024 [facility] [address] [place] [address] [place], [address], 06/20/2023 07:25:41 HbA1c (hemoglob in A1c), blood 2023 024 [facility] [address] [place] [address] [place], [address], 06/20/2023 07:25:41 insulin, serum 2023 024 [facility] [address] [place] [address] [place], [address], 06/20/2023 07:25:[address] referral 2022 023 [facility] Lora Bazan [address] [place], [address], 03/17/2023 05:01:28 Procedures None recorded. Surgeries None recorded. Imaging None recorded. Medication Orders None recorded. Patient TargetsNo targets recorded. Patient Instructions Encounter Date Encounter Id Patient Instructions Last Modified By Organization Details Last Modified Time 08/16/2022 [id number] hearing loss: care instructions Not available 08/18/2022 16:40:58 1. similase lipo 1 cap with meals- 2. calcium- D glucarate- 1 cap daily- 3. call- [employer]- i sent a referral so that maybe your insurance would cover??? 4. have you school send me a letter telling me what they are asking you for- to help with coverage for time of leave in ?? Not available 08/18/2022 16:40:16 05/16/2023 [id number] rash: care instructions Not available 05/16/2023 17:48:21 1. yoly drops- 10-15 drops at night 2. NAC 1 cap 2-3 times daily 3. buffered C element- 2 caps daily as preventative 4. liver support drink detox tea or lipotropic complex 1 cap 2xday 5. similase 1 cap with meals 6. Metabolic renewal Dr. Carolynn Sullivan or lifting weights - high rep low weight Not available 06/25/2023 06:19:59 06/13/2023 [id number] dry skin: care instructions nights1 Not available 06/13/2023 21:22:09 1. Mag soothe-1 packet in am and another at dinner- 2. d-mulsion 4 drops daily 3. ip-6 1 cap 2- times aday and retest in 2-3 months- to lower ferritin to 40-60 range 4. hyaluronic acid- hydration cream apply to face after shower- or on skin after washing with warm water 5. retinol cream under eyes or to assist healing of skin after breaking out kknight Not available 06/13/2023 21:20:01 07/11/2023 [id number] dry skin: care instructions Not available 08/17/2023 16:11:23 1. 1/2 tp horserashish, pinch of cayenne, and onr cclove garlic close minced 2. WET SOCK TREATMENT (aka Warming Socks) After nightly bath or shower prepare in advance socks, wrung out after run under cold water. Check that the feet feel warm after bathing. Then place socks on and cover with Dry Wool Socks. Go to bed. You will awake with them dry. This treatment will assist lymphatic drainage while sending the blood to the feet to warm the socks as well as helping you breathe while sleeping. continue:edamame, flax oil, flaxseed, magsoothe- and skin care products report if skin continues to be dry sinus blend added to saline and do a nasal saline rinse- report if it doesnt clear after 2-3 days of this do not use alotof product on skin when not at work- no make up at home etc Not available 08/17/2023 16:16:20 Reason for Referral Vp Analysis Referral for Visual disturbance Referring Physician: Marie Rao [facility], Encounter Date: 04/03/2017 [employer] Referral for Screening for malignant neoplasm of colon DR. Marta Chauhan- preferred by patient [facility] En[facility] Date: 05/09/2021 [facility] Referral for Dec reased hearing Referring Physician: Marie Rao [facility], Encounter Date: 08/16/2022 Problems Name Status Onset Date Resolution Date Notes Provider Name and Address Organization Details Recorded Time Congestion of nasal sinus Active 2023 Marie Rao ND [address] [place] [address], [address], [facility] 4 16:07:34 Right flank pain Active 2023 Marie Rao ND [address] [place] [address], [address], [facility] 4 13:35:00 Right lower quadrant pain Active 2023 Marie Rao ND [address] [place] [address], [address], [facility] 4 14:03:15 Right sided abdominal pain Active 2017 Marie Rao ND [address] [place] [address], [address] 1, [facility] 8 17:45:13 Mild anxiety Active 2017 Marie Rao ND [address] [place] [address], [address] 1, [facility] 8 17:45:30 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 Marie Rao ND [address] [place] [address], [address] 1, [facility] 8 17:46:27 Dietary management surveillance Active 2018 Marie Rao ND [address] [place] [address], [address], [facility] 9 10:13:42 Fatigue Active 2018 Marie Rao ND [address] [place] [address], [address] 1, [facility] 9 12:28:51 Yellow color of feces Active 2018 Marie Rao ND [address] [place] [address], [address] 1, [facility] 9 12:28:52 High lipase level in serum Active 2018 Marie Rao ND [address] [place] [address], [address]58[address] 1, [facility] 9 12:28:54 Chronic abdominal pain Active 2018 Marie Rao ND [address] [place] [address], [address] 1, [facility] 9 11:41:11 Sleep pattern disturbance Active 2018 Marie Rao ND [address] [place] [address], [address]28[address] 1, [facility] 9 11:41:12 Total bilirubin above reference range Active 2018 Marie Rao ND [address] [place] [address], [address]37[address] 1, [facility] 9 11:41:14 Lesion of external ear Active 2022 Marie Rao ND [address] [place] [address], [address] 1, [facility] 3 15:15:28 Vitamin D deficiency Active 2022 Marie Rao ND [address] [place] [address], [address] 1, [facility] 3 16:13:08 Lesion of skin of foot Active 2022 Marie Rao ND [address] [place] [address], 934[address]-852 1, [facility] 3 16:37:41 Decreased hearing Active 2022 Marie Rao ND [address] [place] [address], [address] 1, [facility] 3 16:38:35 Abnormal digestive tract function Active 2022 Marie Rao ND [address] [place] [address], 755[address] 1, [facility] 3 16:40:49 Eruption Active 2022 Marie Rao ND [address] [place] [address], [address]16[address] 1, [facility] 3 17:17:13 Sweet smelling urine Active 2023 Marie Rao ND [address] [place] [address], [address] 1, [facility] 4 15:50:10 Dry skin dermatitis Active 2023 Marie Rao ND [address] [place] [address], 654[address] 1, [facility] 4 21:20:44 Problem Notes None recorded. Procedures Surgical History Date Name Laterality Status Provider Name and Address Organization Details Recorded Time 3 Colonoscopy completed Marie Rao ND [address] [place] [address], [phone], [facility] 06/07/2022 16:18:34 6 completed Marie Rao ND [address] [place] [address], [address], [facility] 11/15/2016 10:58:55 6 Colonoscopy completed Marie Rao ND [address] [place] [address], [address], [facility] 11/15/2016 10:58:41 3 LEEP completed Marie Rao, REDDY [address] [place] [address], [address], [facility] 11/15/2016 10:58:41 9 LEEP completed Marie Rao, REDDY [facility], [place], [address], [facility] 11/15/2016 10:58:41 3 LEEP completed Marie Rao, REDDY [address] [facility], [place], [address], [facility] 11/15/2016 10:58:41 3 Magazine Writer Surgery completed Marie Rao, REDDY [address] [place] [address], [address], [facility] 11/15/2016 10:58:41 Imaging Results None recorded. Procedure Notes None recorded. Medical Equipment None Reported. Medications Name Sig Start Date Stop Date Status Note LastModified by Organization Details LastModified Time bisacodyl 5 mg tablet,padma yed release active Not Available Not Available Not Available polyethylen e glycol 3350 17 gram/dose oral powder active Not Available Not Available Not Available Lipotropic 1 cap 3xday active Not Available Not Available No t Available compounded medication - 1 cap 2xday for inflammat ion for sore muscles, jaw pain and hip pain 2016 active Not Available Not Available Not Avai lable compounded medication up to 6, 000 mg in divided doses 2016 active Not Available Not Available Not Avai lable compounded medication 1 cap/day 2016 active Not Available Not Available Not Avai lable compounded medication 1 cap with a meal 2017 active Not Available Not Available Not Avai lable compounded medication 1cap 2xday for 3 months--t hen we will retest EBV 08/14 completed Not Available Not Available Not Available compounded medication active Not Available Not Available N ot Available compounded medication 60 drops 3xday moring, when get home from work and then again at nightceciliau rn in 2 weeks to see how this is workingMi guerline Chen therococc 2017 active Not Available Not Available Not Avai lable compounded medication 1/4 tsp 1-2xday 2017 active Not Available Not Available Not Avai lable compounded medication 1 cap 2xday 2016 active Not Available Not Available Not Avai lable compounded medication 1 tab sublingua lly/day 2016 active Not Available Not Available Not Avai lable compounded medication 2016 active Not Available Not Available Not Avai lable compounded medication 1/2 scoop then work up to 1 scoop/day can do another at pm in a little juice/alyssa er mix drink 12 oz water after gi fortify each time 2017 active Not Available Not Available Not Avai lable compounded medication 1 cap 3xday 08/14 completed Not Available Not Available Not Available compounded medication 2016 active Not Available Not Available Not Avai lable compounded medication licorice, astragulu s, lemon balm, st. j wort 2016 active Not Available Not Available Not Avai lable compounded medication 2016 active Not Available Not Available Not Avai lable doxycycline hyclate 200 mg tablet,padma yed release Take 1 tablet every day by oral route for 1 day. 01/03 completed Not Available Not Available Not Available Vitals Date Recorded Body weight Systolic blood pressure Diastolic blood pressure Provider Name and Address Organization Details Last Updated DateTime 05/16/2023 47366.23 g 130 mm[Hg] 70 mm[Hg] Marie Rao ND [address] [place], [place] [id number], [facility] [employer] [facility] 05/16/2023 17:10:06 Date Recorded Body weight Heart rate Systolic blood pressure Diastolic blood pressure Provider Name and Address Organization Details Last Updated DateTime 07/11/2023 43520.64 g 84 /min 128 mm[Hg] 72 mm[Hg] Marie Rao ND [address] [place], [place] [address] , [facility] [employer] [facility] 08/17/2023 16:04:54 Date Recorded Heart rate Oxygen saturation Oxygen saturation in Arterial blood by Pulse oximetry Provider Name and Address Organization Details Last Updated DateTime 12/10/2023 88 /min 99 % 99 % Marie Rao ND [address] [place], [place] [address], [facility] [employer] [facility] 12/10/2023 14:16:44 Social History Question Answer Notes LastModified by Organizat ion Details LastModified Time Tobacco Smoking Status Never Smoker Not Available [facility] 03/29/2020 03:41:49 What Is Your Level Of Alcohol Consumption? Occasional [id number] Information not available 03/29/2020 Animal Exposure? Yes Informat ion not available 11/15/2016 Are You Blind Or Do You Have Difficulty Seeing? No [id number] Information not available 03/29/2020 Are You Currently Employed? Yes [id number] Information not available 03/29/2020 Are You Deaf Or Do You Have Serious Difficulty Hearing? No [id number] Information not available 03/29/2020 What Type Of Diet Are You Following? 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 No [id number] Information no t available 03/29/2020 Hard Of Hearing Or Deaf In One Or Both Ears? No Information not available 11/15/2016 Legally Blind In One Or Both Eyes? No Information no t available 11/15/2016 Live Alone Or With Others? With Others Information not available 11/15/2016 Marital Status Informatio n not available 11/15/2016 What Was The Date Of Your Most Recent Tobacco Screening? 09/10/2017 [id number] Information not available 03/29/2020 How Many Children Do You Have? 2 [id number] Information not available 03/29/2020 What Is Your Parents' Marital Status? [id number] Information not available 03/29/2020 What Is Your Relationship Status? Domestic Partner [id number] Information not available 03/29/2020 Are You Sexually Active? Yes [id number] Information not available 03/29/2020 Do You Have Any Siblings? 5 [id number] Information not available 03/29/2020 Are You Passively Exposed To Smoke? No Information no t available 11/15/2016 What Types Of Sporting Activities Do You Participate In? Walking, Yoga [id number] Information not available 03/29/2020 General Stress Level Low Information not available 11/15/2016 Supplements Fish Oil, Ginkgo Biloba, D3, Chlorella, Hortensia D'arco, B12, B Complex, Mthf Folate, Biotics Beta-TCP Information not available 11/15/2016 Sex: Unknown Functional Status Question Answer Note LastModified by Organizat ion Details LastModified Time Do you have difficulty walking or climbing stairs? No [id number] Information not available 03/29/2020 Do you have difficulty doing errands alone? No [id number] Information not available 03/29/2020 Are you able to care for yourself? Yes [id number] Information not available 03/29/2020 Do you have difficulty dressing or bathing? No [id number] Information not available 03/29/2020 What is your exercise level? Occasional [id number] Information not available 03/29/2020 Mental Status Question Answer Note LastModified by Organization D etails LastModified Time Do you have difficulty concentrating, remembering or making decisions? No [id number] Information no t available 03/29/2020 Family History Relationship Description Onset Age of this Age Resolved Age Notes Maternal Uncle Diabetes mellitus Maternal Grandmother Diabetes mellitus 80 Paternal Grandfather Depressive disorder 95 Mother Diabetes mellitus Mother Asthma Mother Dementia 77 Mother Arthritis 35 Brother Arthritis 30 Paternal Grandmother Dementia 78 88 Son Alcohol abuse 25 Son Asthma Maternal Aunt Diabetes mellitus Father Alcohol abuse 20 Paternal Aunt Alcohol abuse 50 Medical History Condition Response Coronary Artery Disease N Other N Gout N Kidney Stones N Blood Diseases N Hyperthyroidism N Breast Cancer N Blood Transfusion N COPD N Depression N Lung Disease N Hypothyroidism N Defects or Inherited Disease N Developmental or Behavioral Disorders N Breast Problem N Difficulty Swallowing N Anesthesia Complications N Meniere's disease N Anxiety Disorder N Muscle, Joint, or Bone Problems N Obesity N Vision or Eye Problems N Arthritis Y Polyps N Infertility N Mental Disorder N Cancer N Varicosities N Stroke N Endometriosis N Bladder or Kidney Problems N High Cholesterol N Liver Disease N Headaches N Fibromyalgia N Kidney Disease N Allergies/Hayfever Y Heart Problems N Sleep problems/insomnia Y Ear or Hearing Problems Y Hospitalizations Y Thyroid Problems Y GI Problems N ADD/ADHD N Skin Problems Y Eating Disorder N Anemia N MRSA exposure N Constipation N Mental Illness N Ovarian Cancer N Diabetes N Bedwetting N Seizures/Epilepsy N Tuberculosis N AIDS/HIV N Congestive Heart Failure (CHF) N Eczema N Diverticulitis N Abuse/Domestic Violence N Asthma N Reflux/GERD N Hepatitis N Heart Disease N Pulmonary Embolism N Pre-Eclampsia N Hypertension N Chronic Ear Infections N Osteoporosis N Chicken Pox Y Autism Spectrum Disorder (ASD) N Thrombophilias N Gynecological History Statement/Question Response If Post Menopausal, Age at Menopause 51 05/03/2016 Sexually Active? Y Menopause On BCP's at Conception? N N STIs/STDs N Sexual Problems? N Age at Menarche 13 Current Control Method Menopause Age at First Child 27 N Obstetrics History GPAL:G 0 P 0 0 0 0 Immunizations Vaccine Type Date Status Provider Name and Address Organization Details Recorded Time measles 08/25/2013 completed Marie Rao ND [address] [place] [address], [facility] 11/15/2016 10:58:49 tetanus toxoid, unspecified formulation 08/25/2013 olivier Rao ND [address] [place] [address], [facility] 11/15/2016 10:58:49 Past Encounters Encounter ID Performer Location Encounter Start Date Encounter Closed Date Diagnosis/Indication Diagnosis SNOMED-CT Code [id number] Marie Rao ND MAIN OFFICE [address] [place] [address] 10/24/2016 12:25:32 10/24/2016 18:10:48 Adult health examination 644493670 On examina tion - cardiac murmur 039132762 Tick bite 63545984 [id number] Marie Rao ND MAIN OFFICE [address] [place] [address] 11/01/2016 11:11:50 11/02/2016 11:57:21 Dietary management surveillance 347256454 Hip pain 95503435 Food intolerance 7246469 0 Gluten sensitivity 03906 1003 [id number] Marie Rao ND MAIN OFFICE [address] [place] [address] 11/15/2016 10:06:55 11/15/2016 12:01:11 Sore gums 77560942 Jaw pain 503007765 Restless legs 97208161 [id number] Marie Rao ND MAIN OFFICE [address] [place] [address] 02/21/2017 08:53:09 02/21/2017 09:53:46 Increased frequency of urination 341597552 [id number] Marie Jalen AR MAIN OFFICE [address] [place] [address] 04/03/2017 09:58:03 04/03/2017 10:37:51 Screening for malignant neoplasm of cervix 833954921 Candidiasis 86603423 Pruritus ani 33472557 Adult health examination 333514349 Visual disturbance 90161 001 Fatigue 80242966 [id number] Marie Jalen AR MAIN OFFICE [address] [place] [address] 04/09/2017 09:55:54 04/09/2017 10:16:55 Chronic fatigue syndrome 88606980 Fatigue 76038461 Zinc deficiency 91894971 8 [id number] Marie Jalen[place], [place] MAIN OFFICE [address] [place] [address] 08/27/2017 10:46:56 08/27/2017 11:20:24 Fatigue 11773254 Abdominal pain 57790016 [id number] Mariebear Rao AR MAIN OFFICE [address] [place] [address] 09/10/2017 09:35:44 09/10/2017 10:25:37 Fatigue 06663750 Abdominal bloating 03081 9008 Constipation [id number] Marie JalenS[place], ND MAIN OFFICE [address] [place] [address] 10/01/2017 09:26:04 10/01/2017 10:21:14 Heterozygous methylenetetrahydrofolat e reductase mutation 902713131906 102 Right side d abdominal pain 989610889 Mild anxiety 01520238 [id number] Mariebear RaoS[place], ND MAIN OFFICE [address] [place] [address] 10/22/2017 11:24:00 10/22/2017 12:06:39 Irregular heart beat 244683084 Heart murmur 50065780 Right side d abdominal pain 291731946 [id number] Mariebear RaoS[place], [place] MAIN OFFICE [address] [place] [address] 12/10/2017 10:41:11 12/12/2017 16:26:31 Renal mass 088705306 [id number] Marie Rao[place], [place] MAIN OFFICE [address] [place] [address] 01/09/2018 13:13:35 01/13/2018 22:19:30 Liver cyst 63224870 Right side d abdominal pain 502519840 Mild anxiety 14888618 [id number] Marie Rao[place], ND MAIN OFFICE [address] [place] [address] 07/21/2018 11:35:58 07/21/2018 22:33:25 Backache 448428559 Yellow color of feces 16 8839201 Hemangioma of liver 9346 9006 [id number] Marie RaoS[place], ND MAIN OFFICE [address] [place] [address] 07/24/2018 09:43:30 07/24/2018 12:25:00 High lipase level in serum 925268347 Right side d abdominal pain 576928948 Dietary ma nagement surveillance 055656022 [id number] Marie RaoS[place], ND MAIN OFFICE [address] [place] [address] 08/14/2018 15:11:38 08/18/2018 12:27:52 High lipase level in serum [id number] Fatigue 00028938 Yellow color of feces 16 5322964 6019 [place], [place] MAIN OFFICE [address] [place] [address] 11/20/2018 10:02:27 11/20/2018 14:59:15 Total bilirubin above reference range [id number] 108 Chronic abdominal pain 1 73673913 Sleep eva april disturbance 00238522 6067 Marie [place], [place] MAIN OFFICE [address] [place] [address] 12/15/2018 09:42:31 12/15/2018 22:56:51 Osteoarthritis of finger joint 705715677 Abdominal pain 00222027 Loose stool 839487625 Propensity to adverse reactions to food 026150817 6935 Marie [place], [place] MAIN OFFICE [address] [place] [address] 10/27/2019 13:00:06 10/27/2019 23:22:05 Right sided abdominal pain 777384863 Hemangioma of liver 9346 9006 Fatigue 69174233 Pancreatic lipase above reference range 040420391 Hyperlipidemia screening 779137362 6990 Marie Rao ND MAIN OFFICE [address] [place] [address] 11/17/2019 13:57:51 11/27/2019 11:24:56 Total bilirubin above reference range 992646468892 108 Yellow color of feces 16 4904047 Right side d abdominal pain 284720918 7314 Mariebear Rao AR MAIN OFFICE [address] [place] [address] 04/06/2020 12:21:03 04/06/2020 14:18:12 Pain in throat 349124916 Viral screening 79132004 4 8041 Marie Rao AR MAIN OFFICE [address] [place] [address] 01/03/2021 08:39:13 01/09/2021 14:40:28 Anxiety 46043002 Dietary ma nagement surveillance 366144321 8115 Marie Rao AR MAIN OFFICE [address] [place] [address] 01/19/2021 08:48:40 01/19/2021 23:25:09 Mild anxiety 93585191 Sleep eva april disturbance 15706883 8531 Marie Rao AR MAIN OFFICE [address] [place] [address] 05/02/2021 15:29:14 05/10/2021 20:14:07 Right lower quadrant pain 226777119 Chill 53588204 Fatigue 78105851 Screening for malignant neoplasm of colon 197558163 Vitamin D deficiency 347 38909 Chronic fatigue syndrome 87039494 8575 Marie Rao AR MAIN OFFICE [address] [place] [address] 05/09/2021 10:46:39 05/16/2021 16:15:11 Screening for malignant neoplasm of colon 383465869 Vitamin B1 2 deficiency (non anemic) 50364930 9825 Marie Rao [place] Telemedic ine [address] [place] [address] 06/07/2022 14:19:39 06/07/2022 16:23:03 Screening for malignant neoplasm of cervix 238071477 History of adenomatous polyp of colon 257898349 Hyperlipidemia screening 451762442 Lesion of external ear 3 24509797 Right side d abdominal pain 406824506 Vitamin D deficiency 347 65898 Screening for malignant neoplasm of colon 757505742 64157 Marie Rao [place] Telemedic ine [address] [place] [address] 08/16/2022 14:35:03 08/18/2022 16:41:51 Lesion of skin of foot 328294196041 108 Dietary ma nagement surveillance 870397616 Decreased hearing 501109 001 Abnormal d igestive tract function 39918867 28336 Marie Rao ND MAIN OFFICE [address] [place] [address] 05/16/2023 16:38:15 06/25/2023 06:23:48 Fatigue 02579474 Vitamin D deficiency 347 11774 Eruption 094030956 03374 Marie Rao AR MAIN OFFICE [address] [place] [address] 06/13/2023 15:30:40 06/13/2023 21:23:18 Family history of diabetes mellitus type 2 615252247 Sweet smelling urine 773 003504 Dry skin dermatitis 2600 90989 73716 Marie Rao AR MAIN OFFICE [address] [place] [address] 07/11/2023 15:57:58 08/17/2023 16:12:18 Dry skin dermatitis 540470314 Congestion of nasal sinus 26989256 41263 Marie Rao ND MAIN OFFICE [address] [place] [address] 12/10/2023 13:09:37 12/10/2023 14:27:57 Right flank pain 391387157 Total bili montague above reference range 956439904901 108 Right lowe r quadrant pain 821342581 Health Concerns Section Related Observation LastModified by Organization Detai ls LastModified Time None Recorded Concern Status LastModified by Organization Details LastModified Time None Recorded Advance Directives Directive None Recorded Payers Encounter Date Sequence Insurance Name Policy Number Policy [place] Covered Member ID [place] Member ID Guarantor Name 08/16/2022 1 [place] [facility] [id number] Yee Jackson [id number] Yee Jackson 05/16/2023 1 [place] [facility] [id number] Yee Payne Devost [id number] Yee Payne Devost 06/13/2023 1 [place] [facility] [id number] Yee Payne Devost [id number] Yee Payne [place] 07/11/2023 1 [place] [facility] [id number] Yee Payne [place] [id number] Yee Payne Renetta Notes Date Note Type Note Provider Name and Address Organization Details Recorded Time 08/16/2022 text/html HPI Notes: ox bi le lipotropic and bili still slightly raised withnormal liver enzymes- we will wait a year to redo beta glucaronidase- it was normal but higher end- she needs pancreatic enzyme support she notices after meals with meat or fat her stools float or are not as disgested- saw palmetto for hair growth maybe less peach fuss breaking out causes more pimples- discussed hormonal imbalances and Syrian test question about foot lesion corn or callous- she feels her hearing is gone she isnt hearing what others are hearing words are not clear and others around her hear it- she has to get up close to hear student speak- sister has lost half of her hearing yaneth- Marie Rao, [place] [address] [facility], [place], [address], [place] [facility] 08/18/2022 16:41:09 05/16/2023 text/html HPI Notes: feels tired- zinc ricola supplement- she has been sick 4 xthis year- she recently had covid and head congestion- magnesium doesnt work for her to sleep- face started breaking out lazaro if eats potato chips or fatty- bile salts still taking- she has to take with meals- food doesnt seem as appealing anymore- taste not dull and smeell is normal- she will notfeel well if she eats a little off trct- she has cauht several- colds- first 3 vaccines she reveieved- she had covid once before but this time she got a fever and nausea- headache- cough- she always had a clean house but now she is not able to keep clean- she comes home and cant go to sleep but really tired when she gisel down she cant fall asleep and used to be a cat misty- hip hurts- sometimes and affects sleep she isnt exercising easily- gaseous she was having great long stool and now in piece she stopped coffee a month ago- coffee makes her perspire and funny smell- she takes elderberry syrup she has a lot of mucous- Marie Rao, REDDY [address] [facility], [place], [address], [facility] 06/25/2023 06:21:12 06/13/2023 text/html HPI Notes: cbd isnt helping her sleep maybe a little easier to go back to sleep - exercise- not doing still not yoga not exercise- hips sore bowels are moving better- on similase- they were loose and now more like sheis used to- gallbladder attack a few nights ago and right side of liver hurt aweful and she couldnt even rotate to the right she is taking her bile salts she had butternut squash soup but had it before she had a bar with nuts earlier that day for a snack- hot dogs- flax bread with eggs and butter- no diarrhea no nausea- scale to 1-10 it was 7/8 and couldnt get comfortable and then after hours she could fall asleep when awoke it was gone- Marie Batresnayeli, REDDY [address] [facility], [place], [address], [facility] 06/13/2023 21:22:18 07/11/2023 text/html HPI Notes: facia l rash- was doing really good she realized she wasnt drinking enougha nd she drinks not enough she drinks 9 cups of water and still thirsty- if maple syrup or pineapple in the smoothie then she caio have sweet smelling urine- an dits been happeneing for a long time- anion gap lower normal and urine PH high 8.5 discussed prevention of stones and importance or Urine Ph being closer to 7.0 diet discussed skin products are working great along side drinking more fluids- she was sick with nasal congestion and 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
--- OUTSIDE RECORDS SUMMARY | 2023-12-10 15:59 | XMS_ITS | Encounter Summary ---
Author Organization [facility] Address [facility] [place] [address] Care Team Providers Care District Branch Manager Name Role Phone Marie Rao ND Primary Care Provider [phone] Reason for Visit * Reason Onset Date Comments Prior Authorization 01/02/[address] Authorization Encounter Details Date Type Department Care Team (Late st Contact Info) Description 01/02/[address] [place] [address] Nasra Elizalde Prior Authorization (Verification of CT Authorization) Social History Tobacco Use Types Packs/Day Years Used Date Smoking Tobacco: Never Assessed Sex and Gender Information Value Date Recorded Sex Assigned at Not on file Gender Identity Not on file Sexual Orientation Not on file documented as of this encounter Miscellaneous Notes * Telephone Encounter - Nasra Elizalde - 01/02/2018 11:47 AM EDT Phone Call from Patient requesting confirmation that her insurance has approved her CT because she received a letter dated 12/27/17 that they needed more info from her doctor. Reviewed chart with Jennifer Collier to confirm authorization approved.. Called patient back to let her know, yes, authorization had been pending, but was approved 12/31/17. documented in this encounter Plan of Treatment Not on file documented as of this encounter Visit Diagnoses Not on filedocumented in this encounter Care Teams District Branch Manager Relationship Specialty Start Date End Date Marie Rao ND PCP - General Naturopathic Medicine 10/24/17 documented as of this encounter
--- OUTSIDE RECORDS SUMMARY | 2023-12-10 15:59 | XMS_ITS | Encounter Summary ---
Author Organization [facility] Address [address] [place] [address] Care Team Providers Care Bullet Assembly Press Setter Operator Name Role Phone León Alejandro Primary Care Provider Encounter Details Date Type Department Care Team (Late st Contact Info) Description 04/16/2014 Results Only [facility] [phone] Donn Avila MD [address] [place] [address] Social History Tobacco Use Types Packs/Day Years Used Date Smoking Tobacco: Never Assessed Sex and Gender Information Value Date Recorded Sex Assigned at Not on file Gender Identity Not on file Sexual Orientation Not on file documented as of this encounter Plan of Treatment Not on file documented as of this encounter Procedures Procedure Name Priority Date/Time Associated Diagnosis Comments PAP TEST- RESULT ONLY Routine 04/16/2014 0:00 EST documented in this encounter Results * PAP TEST- RESULT ONLY (04/16/2014 0:00 EST) Pathology Report: CYTOPATHOLOGY REPORT Reports generated via electronic interface contain original data; however they are lacking the format of the original report. Caution should be taken when reading/interpreti ng unformatted reports. Name: ? YEE SALES ? Accession #: ? [id number] ? : ? 1960 (Age: 53) ??F ?Collect Date: ? 04/16/2014 ? Location: ? [facility] ? Receive Date: ? 04/19/2014 ? Provider: DONN AVILA MD Copy to: ? Final Report SPECIMEN ADEQUACY ? Satisfactory for Evaluation - transformation zone component present GENERAL CATEGORIZATION ? Negative for Intraepithelial Lesion or Malignancy INTERPRETATION ? Reactive cellular changes associated with inflammation present (includes repair). Previous Gynecologic Pathology: CHUY II CHUY III Treatment History: Cryotherapy: hx x 1 LEEP: x2 Specimen/Source: ??Pap Test, Cervix/Endocervix, ThinPrep Imaging System with manual evaluation Document reviewed and electronically signed by: ? STEVE WAGNER MD [facility] ? Report ??Date: 04/29/2014 14:33 HPV with Pap Test ? Date Ordered: ? 04/28/2014 ? Status: ?? Signed Out ?Date Complete: ? 05/03/2014 ? By: ??System Interface ? Date Reported: ? 05/03/2014 ? Interpretation RESULT: Negative for HPV. No E6 or E7 mRNA is detected from HPV types 16,18,31,33,35, 39,45,51,52,56,58, 59,66, and 68 by business change manager mediated amplification. Comments Document reviewed and electronically signed by: ? System Interface ? Report date: 05/03/2014 By the signature above, the attending physician certifies that he/she has personally conducted a gross and/or microscopic examination of the described specimens and rendered or confirmed the above diagnosis. End of Report [facility] 04/16/2014 04/19/2014 Donn Avila MD PATHOLOGY ORDERABLES [facility] [address] [place] [address] documented in this encounter Visit Diagnoses Not on filedocumented in this encounter Care Teams Bullet Assembly Press Setter Operator Relationship Specialty Start Date End Date León Alejandro DO [address] [place] [address] [address] [place] [address] PCP - General 07/28/10 documented as of this encounter
--- OUTSIDE RECORDS SUMMARY | 2023-12-10 15:59 | XMS_ITS | Encounter Summary ---
Author Organization [facility] Address [address] [place] [address] Care Team Providers Care Glass Polisher Name Role Phone León Alejandro Primary Care Provider Encounter Details Date Type Department Care Team (Late st Contact Info) Description 09/19/2010 Results Only [facility] [phone] Donn Virk MD [address] [place] [address] Social History Tobacco Use Types Packs/Day Years Used Date Smoking Tobacco: Never Assessed Sex and Gender Information Value Date Recorded Sex Assigned at Not on file Gender Identity Not on file Sexual Orientation Not on file documented as of this encounter Plan of Treatment Not on file documented as of this encounter Procedures Procedure Name Priority Date/Time Associated Diagnosis Comments SURGICAL PATHOLOGY Routine 09/19/2010 0:00 EDT documented in this encounter Results * SURGICAL PATHOLOGY (09/19/2010 0:00 EDT) Pathology Report: SURGICAL PATHOLOGY REPORT ? Reports generated via electronic interface contain original data; ? however they are lacking the format of the original report. ? Caution should be taken when reading/interpreti ng unformatted reports. ? Name: ? DEVOST, YEE A ? Accession #: ? [id number] ? : ? 1960 (Age: 50) ??F ? Collect Date: ? 09/19/2010 ? Location: ? [facility] ? Receive Date: ? 09/19/2010 ? Provider: DONN VIRK MD ? Copy to: MARLENE BANKS MD ? Final Pathologic Diagnosis: ? A. ?Ectocervix, 6 o'clock, biopsy: ? 1. ?Squamous mucosa with no pathologic features. ? B. ?Endocervix, curettage: ? 1. ?Mucus, acute inflammation and rare endocervical cells with no ? pathologic features. ? Document reviewed and electronically signed by: ? ANDERS C NUNN MD ? Report ??Date: 09/21/2010 17:22 ? By the signature above, the attending physician certifies that he/she has ? personally conducted a gross and/or microscopic examination of the described ? specimens and rendered or confirmed the above diagnosis. ? Specimen(s) Received: ? A. ?Ectocervix 6 o'clock ? B. ? ECC ? Clinical History: ? Last Pap 08/16/10. Neg. Neg HPV. Phx: severe dysplasia with LEEPs x2; LEEP ?? 05/29, CHUY I. 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 loss to f/up x3 yrs ? Gross Description: ? Received in formalin labelled Devost, Yee and ectocervix 6 o'clock is a single 0.3 x 0.2 x 0.2 cm morel-white irregular soft tissue, submitted in ? toto in (A). ? Received in formalin labelled Devost, Yee and ECC is a 1.0 x 1.0 x 0.2 cm aggregate of morel and blood-tinged mucus admixed with scant morel tissue ? fragments. ??The specimen is filtered and entirely submitted in (B). ??(L. ? Michaud)/mpl ? End of Report ? [facility] 09/19/2010 09/19/2010 15: 20 EDT Donn Virk MD PATHOLOGY ORDERABLES Performing Organization Address City/State/[facility] Co de Phone Number [facility] [address] [place] [address] documented in this encounter Visit Diagnoses Not on filedocumented in this encounter Care Teams Glass Polisher Relationship Specialty Start Date End Date León Alejandro DO [address] [place] [address] [place] [address] PCP - General 07/28/10 documented as of this encounter
--- OUTSIDE RECORDS SUMMARY | 2023-12-10 15:59 | XMS_ITS | Encounter Summary ---
Author Organization [facility] Address [address] [place] [address] Care Team Providers Care Net Lead Developer Name Role Phone León Alejandro Primary Care Provider [phone] Encounter Details Date Type Department Care Team (Late st Contact Info) Description 05/07/2011 Results Only [facility] [phone] Donn Avila MD [address] [place] [address] Social History Tobacco Use Types Packs/Day Years [...] Diagnosis Comments PAP TEST- RESULT ONLY Routine 05/07/2011 0:00 EST documented in this encounter Results * PAP TEST- RESULT ONLY (05/07/2011 0:00 EST) Pathology Report: CYTOPATHOLOGY REPORT Reports generated via electronic interface contain original data; however they are lacking the format of the original report. Caution should be taken when reading/interpreti ng unformatted reports. Name: ? YEE SALES ? Accession #: ? [id number] ? : ? 1960 (Age: 50) ??F ?Collect Date: ? 05/07/2011 ? Location: ? [facility] ? Receive Date: ? 05/09/2011 ? Provider: DONN AVILA MD Copy to: MARLENE BANKS MD ? Final Report SPECIMEN ADEQUACY ? Satisfactory for Evaluation - transformation zone component present GENERAL CATEGORIZATION ? Negative for Intraepithelial Lesion or Malignancy ?? Previous Gynecologic Pathology: HSIL: PHx severe dysplasia Treatment History: Colposcopy: 09/19/10 neg. Other: Additional clinical information: 08/16/10 pap neg/HPV neg. Specimen/Source: ??Pap Test, Cervix/Endocervix, ThinPrep Imaging System with manual evaluation Document reviewed and electronically signed by: ? KAELA Lin(ASCP) ? Report ??Date: 05/11/2011 13:51 HPV with Pap Test ? Date Ordered: ? 05/11/2011 ? Status: ?? Signed Out ?Date Complete: ? 05/16/2011 ? By: ??System Interface ? Date Reported: ? 05/16/2011 ? Interpretation RESULT: Negative for HPV types 16, 18, 31, 33, 35, 39, 45, 51, 52, 56, 58, 59, and 68. Comments Document reviewed and electronically signed by: ? System Interface ? Report date: 05/16/2011 By the signature above, the attending physician certifies that he/she has personally conducted a gross and/or microscopic examination of the described specimens and rendered or confirmed the above diagnosis. End of Report [facility] 05/07/2011 05/09/2011 Donn Avila MD PATHOLOGY ORDERABLES [facility] [address] [place] [address] documented in this encounter Visit Diagnoses Not on filedocumented in this encounter Care Teams Net Lead Developer Relationship Specialty Start Date End Date León Alejandro DO [address] [place] [address] [facility] [address] [place] [address] PCP - General 07/28/10 documented as of this encounter
--- OUTSIDE RECORDS SUMMARY | 2023-12-10 15:59 | XMS_ITS | Encounter Summary ---
Author Organization [facility] Address [address] [place] [address] Care Team Providers Care Noc Analyst Name Role Phone León Alejandro Primary Care Provider [phone] Encounter Details Date Type Department Care Team (Late st Contact Info) Description 08/16/2010 Results Only [facility] - [facility] ([facility] [address] [place] [id number] Alisha Hernández, JARETH Social History Tobacco Use Types Packs/Day Years Used Date Smoking Tobacco: Never Assessed Sex and Gender Information Value Date Recorded Sex Assigned at Not on file Gender Identity Not on file Sexual Orientation Not on file documented as of this encounter Plan of Treatment Not on file documented as of this encounter Procedures Procedure Name Priority Date/Time Associated Diagnosis Comments CYTOPATHOLOGY Routine 08/16/2010 0:00 EDT documented in this encounter Results * CYTOPATHOLOGY (08/16/2010 0:00 EDT) Pathology Report: CYTOPATHOLOGY REPORT ? Reports generated via electronic interface contain original data; ? however they are lacking the format of the original report. ? Caution should be taken when reading/interpreti ng unformatted reports. ? Name: ? DEVOST, YEE A ? Accession #: ? [id number] ? : ? 1960 (Age: 50) ??F ?Collect Date: ? 08/16/2010 ? Location: ? [facility] ? Receive Date: ? 08/17/2010 ? Provider: ALISHA M ROCK SECTION CHIEF ? Copy to: ? Final Report ? SPECIMEN ADEQUACY ? Satisfactory for Evaluation ? - transformation zone component present ? GENERAL CATEGORIZATION ? Negative for Intraepithelial Lesion or Malignancy ? Last Menstural Period: 2/23/11 ? Previous Gynecologic Pathology: Yes: PHx severe dysplasia ? Treatment History: LEEP ? Other: Additional clinical information: no records available ? Specimen/Source: ??Pap Test, Cervix/Endocervix, ThinPrep Imaging System with ? manual evaluation ? Document reviewed and electronically signed by: ? Rachel Ramlogg, CT(ASCP) ? Report ??Date: 08/22/2010 10:49 ? HPV with Pap Test ? Date Ordered: ? 08/22/2010 ? Status: ?? Signed Out ?Date Complete: ? 08/24/2010 ? By: ??System Interface ? Date Reported: ? 08/24/2010 ? Interpretation ? RESULT: Negative for HPV types 16, 18, 31, 33, 35, 39, 45, 51, 52, ? 56, 58, 59, and 68. ? Comments ? Document reviewed and electronically signed by: ? System Interface ? Report date: 08/24/2010 ? By the signature above, the attending physician certifies that he/she has ? personally conducted a gross and/or microscopic examination of the described ? specimens and rendered or confirmed the above diagnosis. ? End of Report ? [facility] 08/16/2010 08/17/2010 Alisha Hernández SECTION CHIEF PATHOLOGY ORDERABLES Performing Organization Address City/State/[facility] Co de Phone Number [facility] [address] [place] [address] documented in this encounter Visit Diagnoses Not on filedocumented in this encounter Care Teams Noc Analyst Relationship Specialty Start Date End Date León Alejandro DO [address] [place] [address] [place] [address] PCP - General 07/28/10 documented as of this encounter
--- OUTSIDE RECORDS SUMMARY | 2023-12-10 15:59 | XMS_ITS | Encounter Summary ---
Author Organization [facility] [address] Care Team Providers Care Editor Newspaper Name Role Phone Marie Rao ND Primary Care Provider [phone]- [phone] Reason for Referral * Diagnostic Test (Routine) - Closed Specialty Diagnoses / Procedures Referred By Contac t Referred To Contact Radiology Diagnoses Other specified disorders of kidney and ureter Procedures CT Abdomen wwo Contrast CT Abdomen & Pelvis wwo Contrast (Generic) CT Abdomen & Pelvis w Contrast Marie Rao ND [address] [place] [address] [facility] [place] [address] Referral ID Status Reason Start Date Expiration Date V isits Requested Visits Authorized [id number] Closed Specialty Service Requested 12/31/2017 03/31/2018 1 1 Reason for Visit * Diagnostic Test (Routine) - Closed Specialty Diagnoses / Procedures Referred By Contac t Referred To Contact Radiology Diagnoses Other specified disorders of kidney and ureter Procedures CT Abdomen wwo Contrast CT Abdomen & Pelvis wwo Contrast (Generic) CT Abdomen & Pelvis w Contrast Marie Rao ND [address] [place] [address] [facility] [place] [address] Referral ID Status Reason Start Date Expiration Date V isits Requested Visits Authorized [id number] Closed Specialty Service Requested 12/31/2017 03/31/2018 1 1 Encounter Details Date Type Department Care Team (Latest Contact Info) Description 01/03/2018 9:00 AM EDT - 01/03/2018 11:59 PM EDT Hospital [place] [address] Marie Rao, ND [address] [place] [address] Other specified disorders of kidney and ureter Discharge Disposition: Home Social History Tobacco Use Types Packs/Day Years Used Date Smoking Tobacco: Never Assessed Sex and Gender Information Value Date Recorded Sex Assigned at Not on file Gender Identity Not on file Sexual Orientation Not on file documented as of this encounter Plan of Treatment Not on file documented as of this encounter Procedures Procedure Name Priority Date/Time Associated Diagnosis Comments CT ABDOMEN WWO CONTRAST Routine 01/03/2018 10:01 AM EDT Other specified disorders of kidney and ureter documented in this encounter Results * CT Abdomen wwo Contrast (01/03/2018 10:01 AM EDT) Anatomical Region Laterality Modality Abdomen Computed Tomogra phy Impressions 01/03/2018 10:55 AM EDT No inflammatory process within the abdomen. Incidental note is made of suspected left liver lobe hemangioma and small liver cyst. Confirmation with sonography suggested. Narrative 01/03/2018 10:55 AM EDT EXAMINATION: ??CT ABDOMEN WWO CONTRAST CLINICAL HISTORY: ??Other specified disorders of kidney and ureter Scanned note in the chart dated October 22, 2017 and states right mid abdominal and right lower quadrant pain. TECHNIQUE: Helical CT of the abdomen was performed prior to and following the intravenous administration of contrast. ??66 cc of Omnipaque 350 was given. COMPARISON: ??None FINDINGS: Lower chest: Normal. Liver: Hypodense lesions in segments 2 and 3, the largest of which, in segment 3 contains peripheral nodular enhancing foci and vessels run through this. Small cyst abutting the intrahepatic IVC. Bile ducts: Nondilated. Gallbladder: No calcified gallstones. Normal caliber wall. Pancreas: Normal attenuation without ductal dilatation. Spleen: Normal. Adrenal: Normal. Kidneys: Tiny left renal cortical hypodense lesions likely cysts though is too small to further characterize. Prompt symmetric bilateral nephrograms without nephrolithiasis nor collecting system dilation. Vasculature: Normal Lymph nodes: No enlarged lymph nodes. Bowel: Visualized segments of loops of large and small bowel are normal in caliber without mural thickening. Peritoneum and mesentery: No ascites, free air, or loculated fluid collection. No mesenteric inflammation. Abdominal wall: Normal. Osseous structures: No suspicious lesions. Procedure Note Lotus Fontana MD - 01/03/2018 EXAMINATION: CT ABDOMEN WWO CONTRAST CLINICAL HISTORY: Other specified disorders of kidney and ureter Scanned note in the chart dated October 22, 2017 and states right midabdominal and right lower quadrant pain. TECHNIQUE: Helical CT of the abdomen was performed prior to and followingthe intravenous administration of contrast. 66 cc of Omnipaque 350 wasgiven. COMPARISON: None FINDINGS: Lower chest: Normal. Liver: Hypodense lesions in segments 2 and 3, the largest of which, insegment 3 contains peripheral nodular enhancing foci and vessels run through this.Small cyst abutting the intrahepatic IVC. Bile ducts: Nondilated. Gallbladder: No calcified gallstones. Normal caliber wall. Pancreas: Normal attenuation without ductal dilatation. Spleen: Normal. Adrenal: Normal. Kidneys: Tiny left renal cortical hypodense lesions likely cysts though istoo small to further characterize. Prompt symmetric bilateral nephrogramswithout nephrolithiasis nor collecting system dilation. Vasculature: Normal Lymph nodes: No enlarged lymph nodes. Bowel: Visualized segments of loops of large and small bowel are normalin caliber without mural thickening. Peritoneum and mesentery: No ascites, free air, or loculated fluidcollection. No mesenteric inflammation. Abdominal wall: Normal. Osseous structures: No suspicious lesions. IMPRESSION No inflammatory process within the abdomen. Incidental note is made of suspected left liver lobe hemangioma and smallliver cyst. Confirmation with sonography suggested. Marie Rao ND [facility] CT ORDERABLES documented in this encounter Visit Diagnoses Diagnosis Other specified disorders of kidney and ureter documented in this encounter Administered Medications Inactive Administered Medications - up to 3 most recent administrations Medication Order MAR Action Action Date Dose Rate Site iohexol (OMNIPAQUE) 350 mg/mL solution 0-200 mL 0-200 mL, Intravenous, ONCE PRN, 1 dose, Starting on Sat01/03/18 at 0946, Until Sat01/03/18 at 0948, Per Protocol, Warning Vesicant/Irritant Medication , Radiology Contrast, Routine Given 01/03/2018 9:48 AM EDT 66 mLs documented in this encounter Care Teams Editor Newspaper Relationship Specialty Start Date End Date Marie Rao ND PCP - General Naturopathic Medicine 10/24/17 documented as of this encounter
--- OUTSIDE RECORDS SUMMARY | 2023-12-10 15:59 | XMS_ITS | Encounter Summary ---
Author Organization [facility] Address [address] [place] [address] Care Team Providers Care Special Police Name Role Phone León Alejandro Primary Care Provider [phone] Encounter Details Date Type Department Care Team (Late st Contact Info) Description 04/03/2017 Results Only [facility] [phone] Jolie Hussein, ND [address] [place] [id number] Social History Tobacco Use Types Packs/Day Years [...] Diagnosis Comments PAP TEST- RESULT ONLY Routine 04/03/2017 0:00 EST documented in this encounter Results * PAP TEST- RESULT ONLY (04/03/2017 0:00 EST) Pathology Report: CYTOPATHOLOGY REPORT Reports generated via electronic interface contain original data; however they are lacking the format of the original report. Caution should be taken when reading/interpreti ng unformatted reports. Name: ? YEE JACKSON ? Accession #: ? [id number] : ? 1960 (Age: 56) ??F ?Collect Date: ? 04/03/2017 Location: ? [facility] ? Receive Date: ? 04/04/2017 Provider: ?JOLIE HUSSEIN MD Copy to: ? Specimen/Source: ?Pap Test, Cervix/Endocervix, ThinPrep Imaging System with manual evaluation Last Menstrual Period: ? Previous Gynecologic Pathology: ? CHUY III: 30yrs ago and again 15 yrs ago ? SPECIMEN ADEQUACY ? Satisfactory for Evaluation - assessment of transformation zone component not applicable ( e.g. atrophy, vaginal sample, hysterectomy) GENERAL CATEGORIZATION ? Negative for Intraepithelial Lesion or Malignancy ? Document reviewed and electronically signed by: ? YASSINE Lazaro(ASCP) ? Report Date: ??04/16/2017 16:00 End of Report [facility] 04/03/2017 04/04/2017 Jolie Hussein ND PATHOLOGY ORDERABL ES [facility] [address] [place] [address] documented in this encounter Visit Diagnoses Not on filedocumented in this encounter Care Teams Special Police Relationship Specialty Start Date End Date León Alejandro DO [address] [place] [address] RENATA HUITRON [id number] PCP - General 07/28/10 documented as of this encounter
--- OUTSIDE RECORDS SUMMARY | 2023-12-10 15:59 | XMS_ITS | Encounter Summary ---
Author Organization [facility] Address [address] [place] [address] Care Team Providers Care Train Conductor Name Role Phone Unavailable Primary Care Provider Unavailabl e Encounter Details Date Type Department Care Team (Late st Contact Info) Description 02/20/2008 10:51 EDT Hospital Encounter [facility] [address] [place] [address] Delores Hamm FNP [facility] [address] [place] [address] Unknown, Provider, Social History Tobacco Use Types Packs/Day Years [...]
--- OUTSIDE RECORDS SUMMARY | 2023-12-10 15:59 | XMS_ITS | Encounter Summary ---
Author Organization [facility] Address [address] [place] [address] Care Team Providers Care Claim Clerk Name Role Phone Unavailable Primary Care Provider Unavailabl e Encounter Details Date Type Department Care Team (Late st Contact Info) Description 03/17/2007 Before PRISM Converted Visit (Maple) [facility] - Maple conversion [address] [place] [address] Delores Hamm FNP [facility] [address] [place], [place] [address] Social History Tobacco Use Types Packs/Day Years Used Date Smoking Tobacco: Never Assessed Sex and Gender Information Value Date Recorded Sex Assigned at Not on file Gender Identity Not on file Sexual Orientation Not on file documented as of this encounter Plan of Treatment Not on file documented as of this encounter Visit Diagnoses * Evaluation - Delores Hamm - 04/05/20091954 EST DIVISION OF INFECTIOUS DISEASE NEW PATIENT EVALUATION - 03/17/2007 [facility] Lon [facility] Purpose: field work Previous: [place] ALLERGIES Sulfa - n/v MEDICATIONS Herbal remedies PAST MEDICAL HISTORY No chronic illness, no recent hospitalizations, no cardiac or pulmonary disease, no hepatitis LAST MENSTRUAL PERIOD Now IMMUNODEFICIENCY None PREVIOUS IMMUNIZATIONS TD - 12 years ago RISK/BENEFIT REVIEW Yellow Fever and malaria maps reviewed, Ms. Jackson is going to a Yellow Fever and malaria area. Shewill receive Yellow Fever vaccine today. We discussed mefloquine vs. Malarone, Ms. Jackson would like mefloquine. She will use DEET to prevent Dengue. We also discussed HepatitisA, and typhoid vaccines and she will receive these today. She will seek Postexposure vaccine for rabies if necessary. We reviewed the high altitude handout, she is allergic to sulfa, and she will descend if she has problems. X Insect/food/water/sex precautions reviewed. X Patient education handouts given PHYSICAL EXAM Temp: 96.9 BP: 98/62 Weight: 51.5 kg Barriers to learning/understanding: none The patient verbalized understanding and agrees with the plan. Total visit time: 20 minutes. Time spent on counseling by provider: 15 minutes IMMUNIZATIONS NEEDED Cholera: Yes/No Date Given Lot # Site 1 Yellow Fever 03/17/07 See flow sheet See flow sheet 2 Typhoid, oral 03/17/07 Oral Typhim 3 MMR 4 Tetanus Diphtheria (tdap) 03/17/07 See flow sheetflow sheet 5 Meningococcal Vaccine Menomune Menactra 6 Polio (OPV, IPV) 7 Malaria Prophylaxis Chloroquine Malarone Mefloquine # 9 Doxycycline Other 8 Immune Globulin WT: 9 Hepatitis A Vaccine See flow sheet See flow sheet Booster 10 Hepatitis B Vaccine Booster x1 month Booster x6 month 11 Influenza 12 Rabies Booster x7 days Booster x28 days 13 J.E.V. Booster x7 days Booster x30 days OTHER ANTIBIOTICS Ciprofloxacin 500 mg BID x 3 days PRN for severe diarrhea Patient advised to sit for 20 minutes. Signed by JOSH Gomez 03/18/2007 13:45 JOSH Gomez D: - JOSH Gomez - kate Job ID: Doc ID: [id number] cc: León Quintero MD documented in this encounter
--- OUTSIDE RECORDS SUMMARY | 2023-12-10 15:59 | XMS_ITS | Encounter Summary ---
Author Organization [facility] Address [facility] [place] [address] Care Team Providers Care Filtration Plant Operator Name Role Phone Marie Rao ND Primary Care Provider [phone] Encounter Details Date Type Department Care Team (Late st Contact Info) Description 01/27/2009 Orders Only Radiology and Cardiology Results [address] [place] [address] Apd Conversion, Results Provider, Social History Tobacco Use Types Packs/Day Years Used Date Smoking Tobacco: Never Assessed Sex and Gender Information Value Date Recorded Sex Assigned at Not on file Gender Identity Not on file Sexual Orientation Not on file documented as of this encounter Plan of Treatment Not on file documented as of this encounter Procedures Procedure Name Priority Date/Time Associated Diagnosis Comments CYTOPATHOLOGY GYNECOLOGICAL Routine 01/27/2009 documented in this encounter Results * (ABNORMAL) Cytopathology Gynecological (01/27/2009) Nail Setter Cytology Final Report Please see Judie Garcia legacy report(Exte rnal Lab) JUDIE GARCIA CONVERSION 01/27/2009 Narrative JUDIE GARCIA CONVERSION - 02/03/2009 Please see Judie Garcia Legacy report Results Provider Apd Conversion PATHO LOGY/CYTOLOGY ORDERABLES JUDIE HALL DAY CONVERSION documented in this encounter Visit Diagnoses Not on filedocumented in this encounter Care Teams Filtration Plant Operator Relationship Specialty Start Date End Date Marie Rao ND PCP - General Naturopathic Medicine 10/24/17 documented as of this encounter
--- OUTSIDE RECORDS SUMMARY | 2023-12-10 15:59 | XMS_ITS | Encounter Summary ---
[place] [address] Care Team Providers Care General Handling Supervisor Name Role Phone Marie Rao ND Primary Care Provider [phone] Encounter Details Date Type Department Care Team (Latest Contact Info) Description 10/24/2017 9:26 AM EDT - 10/24/2017 11:59 PM EDT Hospital Encounter [place] [address] Discharge Disposition: Home Social History Tobacco Use [...] on filedocumented in this encounter Care Teams General Handling Supervisor Relationship Specialty Start Date End Date Marie Rao ND PCP - General Naturopathic Medicine 10/24/17 documented as of this encounter
--- OUTSIDE RECORDS SUMMARY | 2023-12-10 15:59 | XMS_ITS | Encounter Summary ---
Author Organization [facility] Address [facility] [place] [address] Care Team Providers Care Bureau Chief Name Role Phone Marie Rao ND Primary Care Provider [phone]- [phone] Encounter Details Date Type Department Care Team (Late st Contact Info) Description 01/08/2008 Orders Only Radiology and Cardiology Results [address] [place] [address] Apd Conversion, Results Provider, Social [...] Date/Time Associated Diagnosis Comments CYTOPATHOLOGY GYNECOLOGICAL Routine 01/08/2008 documented in this encounter Results * (ABNORMAL) Cytopathology Gynecological (01/08/2008) Fixed Route Operator Cytology Final Report Please see Judie Garcia legacy report(Exte rnal Lab) JUDIE GARCIA CONVERSION 01/08/2008 Narrative JUDIE GARCIA CONVERSION - 01/15/2008 Please see Judie Garcia Legacy report Results Provider Apd Conversion PATHO LOGY/CYTOLOGY ORDERABLES JUDIE HALL DAY CONVERSION documented in this encounter Visit Diagnoses Not on filedocumented in this encounter Care Teams Bureau Chief Relationship Specialty Start Date End Date Marie Rao ND PCP - General Naturopathic Medicine 10/24/17 documented as of this encounter
--- OUTSIDE RECORDS SUMMARY | 2023-12-10 15:59 | XMS_ITS | Encounter Summary ---
Author Organization [facility] Address [facility] [place] [address] Care Team Providers Care Custom Shop Worker Name Role Phone Marie Rao ND Primary Care Provider +1- [phone] Encounter Details Date Type Department Care Team (Late st Contact Info) Description 07/26/2008 Orders Only Radiology and Cardiology Results [address] [place] [address] Apd Conversion, Results Provider, Social [...] Date/Time Associated Diagnosis Comments CYTOPATHOLOGY GYNECOLOGICAL Routine 07/26/2008 documented in this encounter Results * (ABNORMAL) Cytopathology Gynecological (07/26/2008) Credit Counselor Cytology Final Report Please see Judie Garcia legacy report(Exte rnal Lab) JUDIE GARCIA CONVERSION 07/26/2008 Narrative JUDIE GARCIA CONVERSION - 07/30/2008 Please see Judie Garcia Legacy report Results Provider Apd Conversion PATHO LOGY/CYTOLOGY ORDERABLES JUDIE HALL DAY CONVERSION documented in this encounter Visit Diagnoses Not on filedocumented in this encounter Care Teams Custom Shop Worker Relationship Specialty Start Date End Date Marie Rao ND PCP - General Naturopathic Medicine 10/24/17 documented as of this encounter
--- OUTSIDE RECORDS SUMMARY | 2023-12-10 15:59 | XMS_ITS | Encounter Summary ---
Author Organization [facility] Address [address] [place] [address] Care Team Providers Care Operations Professional Name Role Phone FlaviaLeón whyte Primary Care Provider [phone] Encounter Details Date Type Department Care Team (Late st Contact Info) Description 05/04/2021 Lab Requisition [facility] Pathology & Laboratory Medicine - [address] [id number] Outr Resulting Lab, Provider Social History Tobacco [...] Procedure Name Priority Date/Time Associated Diagnosis Comments AMINA-LAW PANEL Routine 05/04/2021 13 :06 EST documented in this encounter Results * (ABNORMAL) AMINA-LAW PANEL (05/04/2021 13:06 EST) EBV VCA IgM, Antibody Negative Negative 05/05/2021 13:37 EST [facility] Comment:Absence of detectabl e VCA IgM antibodies. EBV VCA IgG, Antibody Positive(A) Negative 05/05/2021 13:37 EST [facility] Comment:Presence of detectab le VCA IgG antibodies. EBNA IgG Antibody Equivocal(A) Negative 05/05 13:37 EST [facility] Comment:Recommend collecting a second sample for testing in no less than one to two weeks. EBV Interpretation Indeterminate, suggest recollection if clinically indicated 05/05/2021 13:37 EST [facility] Blood VENOUS BLOOD / Unknown 05/04/2021 13:06 EST 05/04/2021 21:06 EST Provider Outr Resulting Lab IMMUNOLOGY A ND SEROLOGY ORDERABLES Performing Organization Address City/State/[facility] Co de Phone Number [facility] [address] [place] [address] documented in this encounter Visit Diagnoses Not on filedocumented in this encounter Care Teams Operations Professional Relationship Specialty Start Date End Date León Alejandro DO [address] [place] [address] [address] [place] [id number] PCP - General 07/28/10 documented as of this encounter
--- OUTSIDE RECORDS SUMMARY | 2023-12-10 15:59 | XMS_ITS | Encounter Summary ---
Author Organization [facility] Address [address] [place] [address] Care Team Providers Care Iron Setter Name Role Phone Unavailable Primary Care Provider Unavailabl e Encounter Details Date Type Department Care Team (Late st Contact Info) Description 07/26/2010 Results Only [facility] Laboratory Services - [facility] ([facility] [address] [place], [place] [address] Víctor Lenz MD [address] [place], [place] [id number] Social History Tobacco Use Types Packs/Day Years Used Date Smoking Tobacco: Never Assessed Sex and Gender Information Value Date Recorded Sex Assigned at Not on file Gender Identity Not on file Sexual Orientation Not on file documented as of this encounter Plan of Treatment Not on file documented as of this encounter Procedures Procedure Name Priority Date/Time Associated Diagnosis Comments SURGICAL PATHOLOGY Routine 07/26/2010 0:00 EST documented in this encounter Results * SURGICAL PATHOLOGY (07/26/2010 0:00 EST) Pathology Report: SURGICAL PATHOLOGY REPORT ? Reports generated via electronic interface contain original data; ? however they are lacking the format of the original report. ? Caution should be taken when reading/interpreting unformatted reports. ? Name: ? DEVOST, YEE A ? Accession #: ? [id number] ? : ? 1960 (Age: 50) ??F ?Collect Date: ? 07/26/2010 ? Location: ? [facility] ? Receive Date: ? 07/26/2010 ? Provider: VÍCTOR WALKO MD ? Copy to: MARLENE BANKS MD ? Addendum ? Date Ordered: ? 08/03/2010 ? Status: Signed Out ? Date Complete: ? 08/03/2010 ? By: Maria Isabel Catalan ? Date Reported: ? 08/03/2010 ? Addendum Comment ? This addendum is issued to report findings of additional stain. ??An ? immunohistochemical stain for H. pylori (polyclonal, [facility]) is negative. ?? The diagnosis remains the same. (Dr. Snider)/mpl ? NOTE: ??One or more of the reagents used in immunohistochemical testing in this case may not have been cleared or approved by the U.S. Food and Drug ? Administration (FDA). ??The FDA has determined that such clearance or approval is not necessary. ??These tests are used for clinical purposes. ??They should not be regarded as investigational or for research. ??These reagents' ??performance ? characteristics have been determined by [facility]. ??This ? laboratory is certified under the Clinical Laboratory Improvement Amendments of 1988 (CLIA-88) as qualified to perform high complexity clinical laboratory ? testing. ? Document reviewed and electronically signed by: ? RADHA SNIDER MD ? Report date: 08/03/2010 ? By the signature above, the attending physician certifies that he/she has ? personally conducted a gross and/or microscopic examination of the described ? specimens and rendered or confirmed the above diagnosis. ? Final Report ? Final Pathologic Diagnosis: ? Stomach, body, biopsy: ? 1. ?Body type mucosa with mild chronic gastritis. ? 2. ? No Helicobacter pylori-like organisms identified on H+E stained sections. ? Gross Description: ? Received in Hollande's fixative labelled Jerseyost, Yee and #1 bx ? gastric body are two biopsies, each measuring 0.6 x 0.3 x 0.2 cm. ??The ? specimens are submitted intact in one cassette. ??(KAUSHIK Tessitorjay)/ljn ? Clinical History: ? Epigastric pain/dyspepsia and h/o colon adenoma ? Specimens Received: ? Bx gastric body ? Document reviewed and electronically signed by: ? RADHA SNIDER MD ? Report ??Date: 07/31/2010 16:45 ? By the signature above, the attending physician certifies that he/she has ? personally conducted a gross and/or microscopic examination of the described ? specimens and rendered or confirmed the above diagnosis. ? End of Report ? ROBBIE SORENSEN 07/26/2010 07/26/2010 17: 05 EST Víctor Lenz MD PATHOLOGY ORDERABLES [facility] [address] [place] [address] documented in this encounter Visit Diagnoses Not on filedocumented in this encounter
--- OUTSIDE RECORDS SUMMARY | 2023-12-10 15:59 | XMS_ITS | Encounter Summary ---
Author Organization [facility] Address [address] [place] [address] Care Team Providers Care Rock Cutter Name Role Phone León Alejandro DO Primary Care Provider [phone] Encounter Details Date Type Department Care Team (Late st Contact Info) Description 08/03/2015 Results Only [facility] [phone] Lotus Llanes MD [address] [place] [address] [address] [place], [place] [id number] Social History Tobacco Use Types Packs/Day Years [...] Diagnosis Comments PAP TEST- RESULT ONLY Routine 08/03/2015 0:00 EST documented in this encounter Results * PAP TEST- RESULT ONLY (08/03/2015 0:00 EST) Pathology Report: CYTOPATHOLOGY REPORT Reports generated via electronic interface contain original data; however they are lacking the format of the original report. Caution should be taken when reading/interpreti ng unformatted reports. Name: ? YEE JACKSON ? Accession #: ? [id number] ? : ? 1960 (Age: 55) ??F ?Collect Date: ? 08/03/2015 ? Location: ? [facility] ? Receive Date: ? 08/04/2015 ? Provider: LOTUS LLANES MD Copy to: ? Final Report SPECIMEN ADEQUACY ? Satisfactory for Evaluation - assessment of transformation zone component not applicable ( e.g. atrophy, vaginal sample, hysterectomy) GENERAL CATEGORIZATION ? Negative for Intraepithelial Lesion or Malignancy ?? Hormonal/Contracep tive status: None Previous Gynecologic Pathology: HSIL: Hx HGSIL Specimen/Source: ??Pap Test, Cervix/Endocervix, ThinPrep Imaging System with manual evaluation Document reviewed and electronically signed by: ? YASSINE Lazaro(ASCP) ? Report ??Date: 08/09/2015 13:33 HPV with Pap Test ? Date Ordered: ? 08/09/2015 ? Status: ?? Signed Out ?Date Complete: ? 08/11/2015 ? By: ??System Interface ? Date Reported: ? 08/11/2015 ? Interpretation RESULT: Negative for HPV. No E6 or E7 mRNA is detected from HPV types 16,18,31,33,35, 39,45,51,52,56,58, 59,66, and 68 by powder press operator mediated amplification. Comments Document reviewed and electronically signed by: ? System Interface ? Report date: 08/11/2015 By the signature above, the attending physician certifies that he/she has personally conducted a gross and/or microscopic examination of the described specimens and rendered or confirmed the above diagnosis. End of Report [facility] 08/03/2015 08/04/2015 Lotus Llanes MD PATHOLOGY ORDERABLES Performing Organization Address City/State/[facility] Co de Phone Number [facility] [address] [place] [address] documented in this encounter Visit Diagnoses Not on filedocumented in this encounter Care Teams Rock Cutter Relationship Specialty Start Date End Date León Alejandro DO [address] [place] [address] [place] [address] PCP - General 07/28/10 documented as of this encounter
--- OUTSIDE RECORDS SUMMARY | 2023-12-10 15:59 | XMS_ITS | Encounter Summary ---
Author Organization [facility] Address [address] [place] [address] Care Team Providers Care Cloth Printer Name Role Phone Unavailable Primary Care Provider Unavailabl e Encounter Details Date Type Department Care Team (Late st Contact Info) Description 03/17/2007 10:40 EDT Hospital Encounter [facility] [address] [place] [address] Delores Hamm FNP [facility] [address] [place] [address] Social History Tobacco Use Types Packs/Day Years [...]
--- OUTSIDE RECORDS SUMMARY | 2023-12-10 15:59 | XMS_ITS | Clinical Summary ---
Author Organization [facility] Address [facility] [place] [address] Care Team Providers Care Dean Of Women Name Role Phone Marie Rao ND Primary Care Provider [phone] Social History Tobacco Use Types Packs/Day Years Used Date Smoking Tobacco: Never Assessed Sex and Gender Information Value Date Recorded Sex Assigned at Not on file Gender Identity Not on file Sexual Orientation Not on file Plan of Treatment Health Maintenance Due Date Last Done Comments CT Colonography 1960 Colonoscopy 1960 Colorectal Cancer Screening 1960 FIT DNA 1960 FIT 1960 Sigmoidoscopy (10 year) with FIT yearly 1960 Sigmoidoscopy 1960 HIV screen 1977 Hepatitis C Screening 1977 Tdap adult 1978 Tetanus vaccine 1978 HPV test 1989 Breast Cancer Share Decision Needed 1999 Breast Cancer screening 1999 Zoster vaccine (1 of 2) 2009 Advance Directive 2014 PAP Smear 11/04/2014 11/04/2009, 09/0 07/2008, 07/26/2008, Additional history exists Covid-19 Vaccine (2022-2 4 season) 2023 Influenza (Flu) vaccine (1 o f 1 - Influenza standard series) 01/26/2024 Procedures Procedure Name Priority Date/Time Associated Diagnosis Comments CYTOPATHOLOGY GYNECOLOGICAL Routine 11/04/2009 from Last 3 Months or Most Recently Relevant to Health Maintenance Results * (ABNORMAL) Cytopathology Gynecological (11/04/2009) Tool/Die Maker Cytology Final Report Please see Judie Garcia legacy report(Exte rnal Lab) JUDIE GARCIA CONVERSION 11/04/2009 Narrative JUDIE GARCIA CONVERSION - 11/10/2009 Please see Judie Garcia Legacy report Results Provider Apd Conversion PATHO LOGY/CYTOLOGY ORDERABLES Performing Organization Address City/State/[facility] Co de Phone Number JUDIE GARCIA CONVERSION from Last 3 Months or Most Recently Relevant to Health Maintenance Care Teams Dean Of Women Relationship Specialty Start Date End Date Marie Rao ND PCP - General Naturopathic Medicine 10/24/17
--- OUTSIDE RECORDS SUMMARY | 2023-12-10 15:59 | XMS_ITS | Encounter Summary ---
Author Organization [facility] [place] [address] Care Team Providers Care Synthetic Chemist Name Role Phone Jolie Hussein ND Primary Care Provider [phone] Reason for Referral * Diagnostic Test (Routine) - Closed Specialty Diagnoses / Procedures Referred By Contac t Referred To Contact Cardiology Diagnoses Cardiac murmur Procedures Echocardiogram Transthoracic(Leb) Jolie Hussein ND [address] [place] [address] [facility] [place] [address] Referral ID Status Reason Start Date Expiration Date V isits Requested Visits Authorized [id number] Closed Specialty Service Requested 10/22/2017 01/20/2018 1 1 Reason for Visit * Diagnostic Test (Routine) - Closed Specialty Diagnoses / Procedures Referred By Contac t Referred To Contact Cardiology Diagnoses Cardiac murmur Procedures Echocardiogram Transthoracic(Leb) Jolie Hussein ND [address] [place] [address] [facility] [place] [address] Referral ID Status Reason Start Date Expiration Date V isits Requested Visits Authorized [id number] Closed Specialty Service Requested 10/22/2017 01/20/2018 1 1 Encounter Details Date Type Department Care Team (Latest Contact Info) Description 10/24/2017 9:26 AM EDT - 10/24/2017 11:59 PM EDT Hospital Encounter Non-[place] [phone] Cardiac murmur Discharge Disposition: Home Social History Tobacco Use Types Packs/Day Years Used Date Smoking Tobacco: Never Assessed Sex and Gender Information Value Date Recorded Sex Assigned at Not on file Gender Identity Not on file Sexual Orientation Not on file documented as of this encounter Plan of Treatment Not on file documented as of this encounter Procedures Procedure Name Priority Date/Time Associated Diagnosis Comments ECHO COMPLETE Routine 10/24/2017 11:00 AM EDT Cardiac murmur EKG 12-LEAD Routine 10/24/2017 9:57 AM EDT documented in this encounter Results * ECHO COMPLETE (10/24/2017 11:00 AM EDT) EF 66 HEARTLAB SYSTEM Anatomical Region Laterality Modality Other 10/24/2017 Narrative 10/24/2017 2:16 PM EDT Procedure: ?Transthoracic Echocardiogram Patient: ?DEVKAE LASSITER A ? (Age): 1960(57y) Med Rec#: ? [id number] ?Sex: ?F ? [place] ? [facility] [place]Ht / Wt: ??160.02(cm)/57.6 Pt. Loc: ?Echo Lab ?BSA: ?1.59 Study Date: ?? 10/24/2017 ?Pt. Type: Outpatient Tape: ? Referring: JOLIE HUSSEIN M Reading: Mateus Pinto ([id number]) Button Puncher: Yee Griffith Diagnosis: *ICD-10-PCS Cardiac murmur, unspecified (R01.1) Rhythm: ? PVC BP: ? 123/86 SUMMARY: 1. The left ventricular chamber size is normal. Left ventricular wall thickness is normal. There is no evidence of LVOT obstruction. No ventricular septal defect is visualized. There is normal global left ventricular systolic function. The quantitative left ventricular ejection fraction by biplane Parrish's method is 66%. There are no left ventricular segmental wall motion abnormalities. Left ventricular diastolic function is normal. 2. The left atrium is normal in size. No atrial septal defect is visualized. 3. Right ventricular chamber size, wall thickness, and systolic function are within normal limits. 4. The cardiac valves appear structurally and functionally normal. Findings ? : Study Quality: ? Adequate Left Ventricle: ? The left ventricular chamber size is normal. ?Left ventricular wall thickness is normal. ?There is no evidence of LVOT obstruction. ?No ventricular septal defect is visualized. ?There is normal global left ventricular systolic function. ?The quantitative left ventricular ejection fraction by biplane Parrish's method is 66%. ?There are no left ventricular segmental wall motion abnormalities. ?Left ventricular diastolic function is normal. ?Doppler assessment is consistent with normal left sided filling pressure. Left Atrium: ? The left atrium is normal in size. ?No atrial septal defect is visualized. Right Ventricle: ? Right ventricular chamber size, wall thickness, and systolic function are within normal limits. Right Atrium: ? The right atrium appears normal. Aortic Valve: ? The aortic valve is trileaflet. The leaflets are thin with normal excursion. There is no aortic stenosis or regurgitation present. Mitral Valve: ? The mitral valve appears normal in structure and function. ?There is no evidence of mitral valve leaflet prolapse. ?There is trace mitral regurgitation present. Tricuspid Valve: ? The tricuspid valve appears normal in structure and function. ?There is trace tricuspid regurgitation present. Pulmonic Valve: ? The pulmonic valve appears normal in structure and function. Pericardium: ? The pericardium appears normal and there is no evidence of a pericardial effusion. Aorta: ? The aortic root is normal in size. ?The ascending aorta is normal in size. ?There is no evidence of coarctation of the aorta. Pulmonary Artery: ? The main pulmonary artery appears normal. Venous: ? The inferior vena cava appears normal in size. ?There is a greater than 50% respiratory change in the inferior vena cava dimension. Misc: ? The cardiac valves appear structurally and functionally normal. ?See remainder of report for additional findings. ?Two-dimensional echo, spectral Doppler and color Doppler performed. Chambers 2D ?Value ?Units (Range) ? IVSd (2D) ? 0.7 ?cm ? LVPWd (2D) ?0.8 ?cm ? IVS:LVPW ratio (2D) 1 ?ratio ? RWT (2D) ?0.4 ?ratio ? RWT PW (2D) ? 0.4 ?ratio ? LVIDd (2D) ?3.8 ?cm ? LVIDs (2D) ?2.7 ?cm ? LVIDd (2D) index ?2.4 ?cm/m2 ? LVIDs (2D) index ?1.7 ?cm/m2 ? LV FS (2D) ?30 ? % ? EF Teichholz (2D) ?? 58 ? % ? Ao root diameter (2D2.8 ?cm (2.1 - 3.6) ? Ascending Ao ?2.7 ?cm (2 - 3.5) ? Volumes/Mass ?Value ?Units (Range) ? LA Area 4 CH ?12 ? cm2 (<21) ? RA AREA 4CH ? 10 ? cm2 ? LA ESV BP (MOD) inde17 ? ml/m2 ? LV ESV SP 4CH (MOD) 22.6 ? ml ? LV ESV SP 2CH (MOD) 22.5 ? ml ? LV EDV BP ? 69.3 ? ml ? LV ESV BP ? 23.3 ? ml ? LV EDV BP index ? 43.6 ? ml/m2 ? LV ESV BP index ? 14.7 ? ml/m2 ? BP EF (MOD) ? 66 ? % ? LV mass (2D) ?79.8 ? g ? LV mass (2D) index ??50.2 ? g/m2 ? Diastolic/Systolic Function ?Value ?Units (Range) ? MV E-wave Vmax ?0.7 ?m/sec ? MV deceleration [id number] ?msec ? MV A-wave Vmax ?0.7 ?m/sec ? MV E:A ratio ?1.1 ?ratio ? LV septal e' Vmax ?? 0.1 ?m/sec ? LV lateral e' Vmax ??0.1 ?m/sec ? LV average e' Vmax ??0.1 ?m/sec ? LV E:e' septal ratio8.3 ?ratio ? LV E:e' lateral rati6.8 ?ratio ? LV average E:e' rati7.5 ?ratio ? Wall Motion: Segment Name ?Rest ? Base-Anteroseptal ?? Normal ? Base-Anterior ? Normal ? Base-Anterolateral ??Normal ? Base-Posterolateral Normal ? Base-Inferior ? Normal ? Base-Inferoseptal ?? Normal ? Mid-Anteroseptal ?Normal ? Mid-Anterior ?Normal ? Mid-Anterolateral ?? Normal ? Mid-Posterolateral ??Normal ? Mid-Inferior ?Normal ? Mid-Inferoseptal ?Normal ? [place]-Septal ? Normal ? [place]-Anterior ? Normal ? [place]-Lateral ?Normal ? [place]-Inferior ? Normal ? [place]-Tip ?Normal ? This report has been electronically signed by: Mateus Pinto MD ? 10/24/2017 14:16:07 Images reviewed and interpretation verified [facility] Procedure Note Mateus Pinto MD - 10/24/2017 Procedure: Transthoracic Echocardiogram Patient: MÓNICA Payne (Age): 1960(57y) Med Rec#: [id number] Sex: F [place] [facility] Ht / Wt: 160.02(cm)/57.6 Pt. Loc: Echo Lab BSA: 1.59 Study Date: 10/24/2017 Pt. Type: Outpatient Tape: Referring: JOLIE HUSSEIN M Reading: Mateus Pinto ([id number]) Button Puncher: Yee Griffith Diagnosis: *ICD-10-PCS Cardiac murmur, unspecified (R01.1) Rhythm: PVC BP: 123/86 SUMMARY: 1. The left ventricular chamber size is normal. Left ventricular wall thickness is normal. There is no evidence of LVOT obstruction. No ventricular septal defect is visualized. There is normal global left ventricular systolic function. The quantitative left ventricular ejection fraction by biplane Parrish's method is 66%. There are no left ventricular segmental wall motion abnormalities. Left ventricular diastolic function is normal. 2. The left atrium is normal in size. No atrial septal defect is visualized. 3. Right ventricular chamber size, wall thickness, and systolic function are within normal limits. 4. The cardiac valves appear structurally and functionally normal. Findings : Study Quality: Adequate Left Ventricle: The left ventricular chamber size is normal. Left ventricular wall thickness is normal. There is no evidence of LVOT obstruction. No ventricular septal defect is visualized. There is normal global left ventricular systolic function. The quantitative left ventricular ejection fraction by biplane Parrish's method is 66%. There are no left ventricular segmental wall motion abnormalities. Left ventricular diastolic function is normal. Doppler assessment is consistent with normal left sided filling pressure. Left Atrium: The left atrium is normal in size. No atrial septal defect is visualized. Right Ventricle: Right ventricular chamber size, wall thickness, and systolic function are within normal limits. Right Atrium: The right atrium appears normal. Aortic Valve: The aortic valve is trileaflet. The leaflets are thin with normal excursion. There is no aortic stenosis or regurgitation present. Mitral Valve: The mitral valve appears normal in structure and function. There is no evidence of mitral valve leaflet prolapse. There is trace mitral regurgitation present. Tricuspid Valve: The tricuspid valve appears normal in structure and function. There is trace tricuspid regurgitation present. Pulmonic Valve: The pulmonic valve appears normal in structure and function. Pericardium: The pericardium appears normal and there is no evidence of a pericardial effusion. Aorta: The aortic root is normal in size. The ascending aorta is normal in size. There is no evidence of coarctation of the aorta. Pulmonary Artery: The main pulmonary artery appears normal. Venous: The inferior vena cava appears normal in size. There is a greater than 50% respiratory change in the inferior vena cava dimension. Misc: The cardiac valves appear structurally and functionally normal. See remainder of report for additional findings. Two-dimensional echo, spectral Doppler and color Doppler performed. Chambers 2D Value Units (Range) IVSd (2D) 0.7 cm LVPWd (2D) 0.8 cm IVS:LVPW ratio (2D) 1 ratio RWT (2D) 0.4 ratio RWT PW (2D) 0.4 ratio LVIDd (2D) 3.8 cm LVIDs (2D) 2.7 cm LVIDd (2D) index 2.4 cm/m2 LVIDs (2D) index 1.7 cm/m2 LV FS (2D) 30 % EF Teichholz (2D) 58 % Ao root diameter (2D2.8 cm (2.1 - 3.6) Ascending Ao 2.7 cm (2 - 3.5) Volumes/Mass Value Units (Range) LA Area 4 CH 12 cm2 (<21) RA AREA 4CH 10 cm2 LA ESV BP (MOD) inde17 ml/m2 LV ESV SP 4CH (MOD) 22.6 ml LV ESV SP 2CH (MOD) 22.5 ml LV EDV BP 69.3 ml LV ESV BP 23.3 ml LV EDV BP index 43.6 ml/m2 LV ESV BP index 14.7 ml/m2 BP EF (MOD) 66 % LV mass (2D) 79.8 g LV mass (2D) index 50.2 g/m2 Diastolic/Systolic Function Value Units (Range) MV E-wave Vmax 0.7 m/sec MV deceleration [id number] msec MV A-wave Vmax 0.7 m/sec MV E:A ratio 1.1 ratio LV septal e' Vmax 0.1 m/sec LV lateral e' Vmax 0.1 m/sec LV average e' Vmax 0.1 m/sec LV E:e' septal ratio8.3 ratio LV E:e' lateral rati6.8 ratio LV average E:e' rati7.5 ratio Wall Motion: Segment Name Rest Base-Anteroseptal Normal Base-Anterior Normal Base-Anterolateral Normal Base-Posterolateral Normal Base-Inferior Normal Base-Inferoseptal Normal Mid-Anteroseptal Normal Mid-Anterior Normal Mid-Anterolateral Normal Mid-Posterolateral Normal Mid-Inferior Normal Mid-Inferoseptal Normal [place]-Septal Normal [place]-Anterior Normal [place]-Lateral Normal [place]-Inferior Normal [place]-Tip Normal This report has been electronically signed by: Mateus Pinto MD 10/24/2017 14:16:07 Images reviewed and interpretation verified [facility] Jolie Hussein ND ECHO ORDERABLES * EKG 12 Lead (10/24/2017 9:57 AM EDT) Ventricular rate 78 BPM MUSE SYSTEM Atrial Rate 78 BPM MUSE SYSTEM P-R Interval 132 ms MUSE SYSTEM QRS Duration 84 ms MUSE SYSTEM Q-T Interval 392 ms MUSE SYSTEM QTC Calculated (Bezet) 446 ms MUSE SYSTEM Calculated P [place] 80 degrees MUSE SYSTEM Calculated R [place] 74 degrees MUSE SYSTEM Calculated T [place] 50 degrees MUSE SYSTEM INTERPRETATION Sinus rhythm with sinus arrhythmia Occasional Premature ventricular complexes Otherwise normal ECG No previous ECGs available Confirmed by Derrek COATS MD, Nathaniel ([id number]) on 10/28/2017 2:11:01 PM MUSE SYSTEM 10/24/2017 9:57 AM EDT 10/28/2017 2:11 PM EDT Unknown ECG ORDERABLES MUSE SYSTEM documented in this encounter Visit Diagnoses Diagnosis Cardiac murmur Undiagnosed cardiac murmurs documented in this encounter Care Teams Synthetic Chemist Relationship Specialty Start Date End Date Jolie Hussein ND PCP - General Naturopathic Medicine 10/24/17 documented as of this encounter
--- OUTSIDE RECORDS SUMMARY | 2023-12-10 15:59 | XMS_ITS | Encounter Summary ---
Author Organization [facility] Address [facility] [place] [address] Care Team Providers Care Commercial Internship Name Role Phone Marie Rao ND Primary Care Provider [phone]- [phone] Encounter Details Date Type Department Care Team (Late st Contact Info) Description 11/04/2009 Orders Only Radiology and Cardiology Results [address] [place] [address] Apd Conversion, Results Provider, Social [...] Associated Diagnosis Comments CYTOPATHOLOGY GYNECOLOGICAL Routine 11/04/2009 documented in this encounter Results * (ABNORMAL) Cytopathology Gynecological (11/04/2009) Package Center Supervisor Cytology Final Report Please see Judie Garcia legacy report(Exte rnal Lab) JUDIE GARCIA CONVERSION 11/04/2009 Narrative JUDIE GARCIA CONVERSION - 11/10/2009 Please see Judie Garcia Legacy report Results Provider Apd Conversion PATHO LOGY/CYTOLOGY ORDERABLES JUDIE HALL DAY CONVERSION documented in this encounter Visit Diagnoses Not on filedocumented in this encounter Care Teams Commercial Internship Relationship Specialty Start Date End Date Marie Rao ND PCP - General Naturopathic Medicine 10/24/17 documented as of this encounter
--- OUTSIDE RECORDS SUMMARY | 2023-12-10 15:59 | XMS_ITS | Encounter Summary ---
Author Organization [facility] Address [address] [place] [address] Care Team Providers Care Cylinder Machine Operator Pulp Drier Name Role Phone León Alejandro Primary Care Provider [phone] Encounter Details Date Type Department Care Team (Late st Contact Info) Description 05/12/2012 Results Only [facility] [phone] Donn Virk MD [address] [place] [address] Social History Tobacco Use Types Packs/Day Years [...] Diagnosis Comments PAP TEST- RESULT ONLY Routine 05/12/2012 0:00 EST documented in this encounter Results * PAP TEST- RESULT ONLY (05/12/2012 0:00 EST) Pathology Report: CYTOPATHOLOGY REPORT Reports generated via electronic interface contain original data; however they are lacking the format of the original report. Caution should be taken when reading/interpreti ng unformatted reports. Name: ? JULIOYEE PAL Kerry ? Accession #: ? [id number] ? : ? 1960 (Age: 51) ??F ?Collect Date: ? 05/12/2012 ? Location: ? [facility] ? Receive Date: ? 05/13/2012 ? Provider: DONN VIRK MD Copy to: MARLENE BANKS MD ? Final Report SPECIMEN ADEQUACY ? Satisfactory for Evaluation - transformation zone component present GENERAL CATEGORIZATION ? Negative for Intraepithelial Lesion or Malignancy ?? Other: Additional clinical information: pap 05/08/11 was negative with -HPV Specimen/Source: ??Pap Test, Cervix/Endocervix, ThinPrep Imaging System with manual evaluation Document reviewed and electronically signed by: ? Irlanda Shi, CT(ASCP) ? Report ??Date: 05/21/2012 09:30 HPV with Pap Test ? Date Ordered: ? 05/21/2012 ? Status: ?? Signed Out ?Date Complete: ? 05/23/2012 ? By: ??System Interface ? Date Reported: ? 05/23/2012 ? Interpretation RESULT: Negative for HPV. No E6 or E7 mRNA is detected from HPV types 16,18,31,33,35, 39,45,51,52,56,58, 59,66, and 68 by case managers mediated amplification. Comments Document reviewed and electronically signed by: ? System Interface ? Report date: 05/23/2012 By the signature above, the attending physician certifies that he/she has personally conducted a gross and/or microscopic examination of the described specimens and rendered or confirmed the above diagnosis. End of Report [facility] 05/12/2012 05/13/2012 Donn Virk MD PATHOLOGY ORDERABLES Performing Organization Address City/State/[facility] Co de Phone Number [facility] [address] [place] [address] documented in this encounter Visit Diagnoses Not on filedocumented in this encounter Care Teams Cylinder Machine Operator Pulp Drier Relationship Specialty Start Date End Date León Alejandro DO [address] [place] [address] [place] [address] [place] [address] PCP - General 07/28/10 documented as of this encounter
[2023-12-10 16:00] LABS: Bacteria Negative HPF (Negative); C & S Indicated? No; Casts Negative LPF (Negative); Crystals Negative HPF (Negative); Epithelial Cells Rare HPF (Negative); Mucus Negative (Negative); RBC 0-2 HPF (0-2); WBC 0-2 HPF (0-5)
== END 2023-12-10 15:53 | disposition home or self-care (01) ==
LOC: LBO 15:55
PROVIDERS: PCP Naturopath; Visit Provider Naturopath
DX: R10.9 Unspecified abdominal pain (principal); R17 Unspecified jaundice; R10.31 Right lower quadrant pain
CPT/HCPCS: 36415; 80076; 81003; 81015; 83615; 86140

== ENCOUNTER 2024-02-14 15:05 | Outpatient (REF) | payer MEDICAID, SELFPAY ==
[2024-02-14 17:22] LABS: Bacteria Negative HPF (Negative); C & S Indicated? C&S Done As Ordered; Crystals Negative HPF (Negative); Epithelial Cells Negative HPF (Negative); Mucus Negative (Negative); RBC Negative HPF (0-2); WBC Negative HPF (0-5)
== END 2024-02-14 15:06 | disposition home or self-care (01) ==
LOC: LBN 15:05
PROVIDERS: PCP Naturopath; Visit Provider Physician Assistant Medical
DX: R30.0 Dysuria (principal)
CPT/HCPCS: 81015; 87086

== ENCOUNTER → 2024-09-24 10:57 | Outpatient (BNVA) | payer MEDICARE, SELFPAY | PROVIDERS: PCP Naturopath; Referring Provider Naturopath; Visit Provider Physical Therapy Assistant | DX: Z12.11 Encounter for screening for malignant neoplasm of colon (principal); Z80.0 Family history of malignant neoplasm of digestive organs; Z86.0101 Personal history of adenomatous and serrated colon polyps ==

== ENCOUNTER 2024-10-23 09:52 | Day surgery (SDC) | payer MEDICARE, SELFPAY ==
[2024-10-23 10:43] VITALS: BP 124/74; PULSE 64; RESP 16; TEMP 36.3; O2SAT 100
[2024-10-23] MEDS: Lactated Ringers 1,000 ML 80 ML IV (11:01)
--- NOTE | 2024-10-23 12:09 | W.ANESPRE ---
General Info Date of Service Date Performed: 10/23/24 Height: 5 ft 3 in Weight: 59.5 kg Body Mass Index (BMI): 23.2 Surgical Procedure: Operation Date: 10/23/24 11:50 Proposed Procedure Side Surgeon p Colonoscopy Marcelo Finn MD Meds Allergies and Home Medications Allergies Allergy/AdvReac Type Severity Reaction Status Date / Time Sulfa (Sulfonamide Allergy Severe Vomitting/loss Unverified 10/23/24 10:34 Antibiotics) of consciousness corn AdvReac Other (See Verified 10/23/24 10:34 Comment) gluten AdvReac Diarrhea, Unverified 10/23/24 10:34 IBS dairy Allergy Intermediate Diarrhea, Uncoded 10/23/24 10:34 rash Home Medication ?Medication ?Instructions ?Recorded vitamin B12 500 mcg-folic acid 400 1 ea PO DIRECTED 04/16/14 mcg tablet vitamin B complex-folic acid 2,000 1 cap PO DAILY 07/10/21 mcg capsule (B-Stress) bisacodyl 5 mg tablet,delayed 5 mg PO ONCE #4 tabs 09/24/24 release (Dulcolax (bisacodyl)) cholecalciferol (vitamin D3) 10 10 mcg PO DAILY 09/24/24 mcg/0.25 mL oral drops polyethylene glycol 3350 17 17 g PO ONCE #238 grams 09/24/24 gram/dose oral powder Current Visit Medications: Current Medications Generic Name Dose Route Start Last Admin Trade Name Freq PRN Reason Stop Dose Admin Ringer's Solution 1,000 mls @ 80 mls/hr 10/23/24 06:00 10/23/24 11:01 IV 10/23/24 23:59 80 mls/hr INFUSION MARYANN Administration IV Miscellaneous Supplies 1 each 10/23/24 06:00 Iv Access IV 10/23/24 23:59 DIRECTED MARYANN Sodium Chloride 0 ml 10/23/24 06:00 Normal Saline Flush 10 Ml Syr IV 10/23/24 23:59 PRN PRN Sodium Chloride 0 ml 10/23/24 06:00 Normal Saline 10 Ml Vial IJ 10/23/24 23:59 DIRECTED PRN Sterile Water 0 ml 10/23/24 06:00 Water,Injection,Sterile 10 Ml Vial IJ 10/23/24 23:59 DIRECTED PRN PFSH Active Problems Active Problems: Problem Status Onset Code Serrated adenoma of colon Acute D12.6 Tubular adenoma of colon Acute D12.6 Chronic abdominal pain Acute R10.9, G89.29 Sleep pattern disturbance Acute G47.20 Mild anxiety Acute F41.9 Medical History Medical History Elevated lipase Total bilirubin, elevated 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 Nl pap/neg HPV in 2013 Surgical History Surgical History History of esophagogastroduodenoscopy (EGD) History of colonoscopy (~03/2022) History of gynecologic surgery (~08/25/82) History of loop electrical excision procedure (LEEP) (~05/27/02) 03/27/1999 10/25/1982 Colonoscopy - IV Sedation (05/08/16) Tobacco Smoking/Tobacco Use Status: Never Alcohol Alcohol Intake: current Alcohol intake frequency: a few times a week Alcohol type: wine Substance Use Substance use: Never Substance use type: does not use Vital Signs and Lab Results Vital Signs Most Recent Vital Signs in EMR: Most Recent Vital Signs Temp Pulse Resp BP Pulse Ox 36.3 C L 64 16 124/74 100 10/23/24 10:43 10/23/24 10:43 10/23/24 10:43 10/23/24 10:43 10/23/24 10:43 Lab Results Blood Type / Crossmatch: No Data to Display Complete Blood Count: No Data to Display Complete Metabolic Panel: No Data to Display Liver Function Panel: No Data to Display Coagulation Panel: No Data to Display Cardiac Panel: No Data to Display Arterial Blood Gas: No Data to Display Venous Blood Gas: No Data to Display Pancreas Panel: No Data to Display Thyroid Panel: No Data to Display Infectious Disease: No Data to Display Blood Cultures: No Data to Display Toxicology Panel: No Data to Display Anesthesia Assessment and Plan Anesthesia History Personal History: No History of Anesthesia Complications Family History: Other Exercise Tolerance Exercise Tolerance: Metabolic Equivalents>4 Pertinent Negatives Pertinent Negatives: No Major Cardiovascular Symptoms or Complaints and No Major Pulmonary Symptoms or Complaints Cardiac & Pulmonary Exam Cardiac Exam: Normal S1/S2 Heart Sounds Pulmonary Exam: Clear Bilateral Breath Sounds Implantable Cardiac Device Does patient have a Pacemaker or an ICD?: No Airway Exam Known Difficult Airway: No Mallampati Class: 2 Mouth Opening: Normal (> 3cm) Thyromental Distance: Greater than 3 cm Neck Range of Motion: Full ROM Neck Circumference: Normal Teeth Condition: Normal Dentition ASA Classification ASA Score: ASA 2 Emergency Case?: No NPO Status NPO Status: NPO Clears >2 hours, Solids >8 hours Anesthesia Plan Resuscitation Status: Full Code Anesthesia Technique: General Anesthesia Airway Planned: Natural Airway Monitors Used: Standard Monitors
[2024-10-23 12:11] VITALS: BMI 23.2
[2024-10-23 12:45] VITALS: BP 121/70; PULSE 76; RESP 17; TEMP 36.8; O2SAT 100
--- NOTE | 2024-10-23 12:51 | W.ANESPOSTOP ---
Postoperative Evaluation Date, Time and Location Date Performed: 10/23/24 Time Performed: 12:45 Patient Location: Day Surgery Unit Vital Signs Most Recent Imported Vital Signs: Most Recent Vital Signs Temp Pulse Resp BP Pulse Ox 36.8 C 76 17 121/70 100 10/23/24 12:45 10/23/24 12:45 10/23/24 12:45 10/23/24 12:45 10/23/24 12:45 Pain Score Most Recent Pain Score: Most Recent Pain Score Pain Level 0 10/23/24 10:43 Assessment Mental Status: Awake (Alert & Oriented to Patient Baseline) Airway and Respiratory Function: Patent airway with normal (patient baseline) respiratory exam Cardiovascular Function: Hemodynamically Stable Hydration Status: Adequately Hydrated Nausea & Vomiting: No Nausea or Vomiting Pain: Pt. Denies Any Pain Peripheral Nerve Block: Patient did not receive a nerve block
--- NOTE | 2024-10-23 12:52 | W.COLOREPORT ---
Date of service: 10/23/24 Time of Service: 12:53 Colonoscopy Report Procedure Description: PROCEDURES PERFORMED: 1. Colonoscopy PREOPERATIVE DIAGNOSIS: Surveillance colonoscopy, colon polyp history POSTOPERATIVE DIAGNOSIS: Grade 1 internal hemorrhoids SURGEON: Alf Finn MD INDICATION FOR PROCEDURE: the patient is a 64-year-old woman with no symptoms due for surveillance colonoscopy because of a history of sessile serrated adenomas. FINDINGS: Normal terminal ileum. No new polyps. No inflammation anywhere. No obvious diverticular disease. Grade 1 internal hemorrhoids. SURVEILLANCE interval/FOLLOW-UP: 5 years SPECIMENS: None EBL: Minimal COMPLICATIONS: None QUALITY of prep: Excellent Procedure in detail: The patient gave written consent and was in agreement with the indications, the potential risks as well as the benefits of the procedure. They were taken to the endoscopy suite and laid in the left lateral decubitus position. A timeout was performed and anesthesia was administered which was tolerated well. I started the procedure. Digital rectal and visual examination was performed and grossly within normal limits. A well-lubricated flexible colonoscope was then introduced and passed without any notable difficulty all the way to the cecum identified by the ileocecal valve and the appendiceal orifice. The terminal ileum was briefly intubated and looked normal. The scope was then slowly withdrawn with the above-noted findings. The patient tolerated the procedure well and was taken to the PACU in hemodynamically stable condition.
--- NOTE | 2024-10-23 13:01 | W.COLOREPORT ---
Date of service: 10/23/24 Time of Service: 13:01 Colonoscopy Report Procedure Description: PROCEDURES PERFORMED: 1. Colonoscopy PREOPERATIVE DIAGNOSIS: Surveillance colonoscopy, colon polyps POSTOPERATIVE DIAGNOSIS: Grade 1 internal hemorrhoids SURGEON: Alf Finn MD INDICATION FOR PROCEDURE: the patient is a healthy 64-year-old woman with a personal history of sessile serrated polyps and also a family history of colon cancer. FINDINGS: SURVEILLANCE interval/FOLLOW-UP: 10 years SPECIMENS: None EBL: Minimal COMPLICATIONS: None QUALITY of prep: Excellent Procedure in detail: The patient gave written consent and was in agreement with the indications, the potential risks as well as the benefits of the procedure. They were taken to the endoscopy suite and laid in the left lateral decubitus position. A timeout was performed and anesthesia was administered which was tolerated well. I started the procedure. Digital rectal and visual examination was performed and grossly within normal limits. A well-lubricated flexible colonoscope was then introduced and passed without any notable difficulty all the way to the cecum identified by the ileocecal valve and the appendiceal orifice. The scope was then slowly withdrawn with the above-noted findings. The patient tolerated the procedure well and was taken to the PACU in hemodynamically stable condition.
--- NOTE | 2024-10-23 13:01 | W.PM.DSUDISC ---
Date of service: 10/23/24 Discharge Plan Disposition Patient Disposition: Home Condition: Good Discharge Details Attending Provider: Marcelo Finn Primary Care Provider: Marie Rao Home Meds and New Rx's Prescriptions: No Action cholecalciferol (vitamin D3) 10 mcg/0.25 mL drops 10 mcg PO DAILY bisacodyl [Dulcolax (bisacodyl)] 5 mg tablet,delayed release (DR/EC) 5 mg PO ONCE Qty: 4 0RF Rx Instructions: Take per colonoscopy instructions provided by ordering providers office polyethylene glycol 3350 17 gram/dose powder 17 g PO ONCE Qty: 238 0RF Rx Instructions: Take per colonoscopy instructions provided by ordering providers office vitamin I33-keazd acid 1 EACH tablet 1 ea PO DIRECTED B-Stress 2,000 mcg capsule 1 cap PO DAILY Discharge Instructions Additional Instructions: FINDINGS: No new polyps today. Repeat colonoscopy in 5 years. Activity:: Activity as Tolerated Diet:: As Tolerated
[2024-10-23 13:06] VITALS: BP 125/63; PULSE 73; RESP 20; TEMP 36.5; O2SAT 98
== END 2024-10-23 13:24 | disposition home or self-care (01) ==
PROVIDERS: PCP Naturopath; Visit Provider Student in an Organized Health Care Education/Training Program
PROC: 0DJD8ZZ Inspection of Lower Intestinal Tract, Via Natural or Artificial Opening Endoscopic (ICD-10-PCS; CPT 45378; principal; 2024-10-23 11:45)
DX: Z12.11 Encounter for screening for malignant neoplasm of colon (principal); K64.8 Other hemorrhoids; Z86.0101 Personal history of adenomatous and serrated colon polyps
CPT/HCPCS: G0105; J2003; J2704

== ENCOUNTER 2025-01-08 21:20 | Outpatient (REF) | payer MEDICARE, SELFPAY | END 2025-01-08 21:21 | disposition home or self-care (01) | LOC: LBN 21:20 | PROVIDERS: PCP Naturopath; Visit Provider Physician Assistant Medical | DX: J02.9 Acute pharyngitis, unspecified (principal) | CPT/HCPCS: 87070 ==

== ENCOUNTER 2025-01-11 20:55 | Outpatient (REF) | payer MEDICARE, SELFPAY | END 2025-01-11 20:56 | disposition home or self-care (01) | LOC: LBN 20:55 | PROVIDERS: PCP Naturopath; Visit Provider Physician Assistant Medical | DX: J02.9 Acute pharyngitis, unspecified (principal) | CPT/HCPCS: 87070 ==

== ENCOUNTER 2025-02-26 15:24 | Outpatient (REF) | payer MEDICARE, SELFPAY ==
[2025-02-26 21:26] LABS: ESR 3 mm/hr (0-30)
[2025-02-26 21:27] LABS: Abs Immature Grans 0.02 10^3/uL (0.0-0.06); HCT 42.3 % (36.0-46.0); HGB 14.3 g/dL (11.2-15.7); Immature Grans % 0.2 %; MCH 31.5 pg (27.0-33.0); MCHC 33.8 % (32.0-36.0); MCV 93 fL (80-95); MPV 10.1 fL (8.0-11.0); Platelet Count 344 10^3/uL (130-400); RBC 4.54 10^6/uL (3.93-5.22); RDW 11.4 % (11.7-14.6); RDW-SD 38.8 fL; WBC 8.18 10^3/uL (4.4-10.8)
[2025-02-26 21:36] LABS: ALT 25 U/L (14-59); AST 17 U/L (15-37); Albumin 4.7 g/dL (3.4-5.0); Alkaline Phosphatase 85 U/L (46-116); Anion Gap 9.7 mmol/L (3-11); BUN 5 mg/dL (7-18); Bilirubin, Total 1.0 mg/dL (0.2-1.0); CO2 27.3 mmol/L (21.0-32.0); Calcium 9.1 mg/dL (8.5-10.1); Chloride 93 mmol/L (98-107); Estimated GFR 95.92 (mL/min/1.73m2); Glucose 90 mg/dL (74-106); LDH 148 U/L (81-234); Potassium 4.4 mmol/L (3.5-5.1); Sodium 130 mmol/L (136-145); Total Protein 7.6 g/dL (6.4-8.2)
[2025-02-26 21:38] LABS: C-Reactive Protein < 0.50 mg/dL (<or=0.5)
== END 2025-02-26 15:25 | disposition home or self-care (01) ==
LOC: LBN 15:24
PROVIDERS: PCP Naturopath; Visit Provider Physician Assistant Medical
DX: R10.31 Right lower quadrant pain (principal)
CPT/HCPCS: 80053; 85652; 83615; 85025; 86140

== ENCOUNTER 2025-03-01 02:25 | Outpatient (CLI) | payer MEDICARE, SELFPAY ==
--- NOTE | 2025-03-01 | DI.CT_ITS ---
Exam(s) CT ABDOMEN PELVIS W EXAM: CT ABDOMEN PELVIS W CLINICAL HISTORY: RLQ ABD PAIN,R10.31 TECHNIQUE: Imaging Protocol: Axial computed tomography images with coronal and sagittal reformatted images were created and reviewed. CONTRAST MATERIAL: Intravenous: Omnipaque 350 Contrast volume:75 mL Oral: Yes COMPARISON: No exams were available for comparison FINDINGS: ABDOMEN: Lung Bases: There is atelectasis in the lung bases. Liver: Normal density. There are several tiny round hypodensities seen in the liver which are too small for further characterization but likely reflect small cysts. The largest is in the left lobe of the liver. Portal, Superior Mesenteric, and Splenic Veins: Unremarkable. Gallbladder and Biliary Tract: No radiodense calculus or dilation. Pancreas: Normal density, no abnormal calcifications or inflammatory process. There is a 1.3 cm cystic lesion in the head of the pancreas (series 8, image 28). Spleen: Normal. Adrenals: No masses seen. Kidneys: Normal size, contour and axis. No radiodense stones or obstructive uropathy. There are 2 tiny hypodensities in the left kidney. They are too small for further characterization but likely reflect small cysts. No follow-up is recommended. Abdominal Aorta: Abdominal portion non-dilated. Bowel: No obstruction or bowel wall thickening. There is no evidence of appendicitis. Peritoneal Cavity: No ascites, collection or mesenteric inflammatory response. No free air. Lymph Nodes: Within normal limits. Bones: Within normal limits for the patient's age. Soft Tissues: Unremarkable. PELVIS: Bladder: The urinary bladder is incompletely distended. There is mild wall thickening diffusely in the urinary bladder. This may be due to underdistention, but cystitis cannot be excluded. Reproductive Organs: Unremarkable as visualized. Lymph Nodes: Within normal limits. Bones: Within normal limits for the patient's age. IMPRESSION: 1. Mild thickening of the wall of the urinary bladder. This may be due to underdistention, but cystitis cannot be excluded. Please correlate clinically. 2. 1.3 cm cystic lesion in the head of the pancreas. MRI of the pancreas without and with contrast is recommended for further evaluation. Unexpected findings RADIATION DOSE DELIVERED: 313.38mGy.cm Total DLP DATA REPOSITORY: All CT scans at this facility are submitted to the National Radiology Data Registry (NRDR) Dose Index Registry (DIR) with the [employer] (ACR). RADIATION OPTIMIZATION: All CT scans at this facility use at least one of these dose optimization techniques: automated exposure control; mA and/or kV adjustment per patient size (includes targeted exams where dose is matched to clinical indication); or iterative reconstruction.
[2025-03-01] MEDS: Barium Sulfate 2% W/V-Berry Smoothie 450 ML BTL PO ×2 (08:23→08:24)
[2025-03-01] MEDS: Normal Saline Flush 10 ML SYR IVP (10:19)
[2025-03-01] MEDS: Omnipaque 350 MG/ML 100 ML BTL IJ (10:19)
[2025-03-01] MEDS: Normal Saline - Diluent 50 ML VIAL IJ (10:19)
== END 2025-03-01 02:45 ==
LOC: DI 02:25
PROVIDERS: PCP Naturopath; Visit Provider Physician Assistant Medical
DX: R10.31 Right lower quadrant pain (principal); R93.2 Abnormal findings on diagnostic imaging of liver and biliary tract
CPT/HCPCS: 74177; J3490

== ENCOUNTER 2025-03-11 15:22 | Outpatient (REF) | payer MEDICARE, SELFPAY ==
[2025-03-11 22:00] LABS: ALT 32 U/L (14-59); Albumin 4.1 g/dL (3.4-5.0); Alkaline Phosphatase 76 U/L (46-116); Anion Gap 12.5 mmol/L (3-11); BUN 5 mg/dL (7-18); Bilirubin, Total 0.6 mg/dL (0.2-1.0); CO2 24.5 mmol/L (21.0-32.0); Calcium 8.8 mg/dL (8.5-10.1); Chloride 100 mmol/L (98-107); Cholesterol 155 mg/dL (<200); Estimated GFR 81.72 (mL/min/1.73m2); Glucose 104 mg/dL (74-106); HDL Cholesterol 49 mg/dL (>or=50); Potassium 3.7 mmol/L (3.5-5.1); Sodium 137 mmol/L (136-145); Total Protein 7.1 g/dL (6.4-8.2); Triglyceride 401 mg/dL (<150); Vitamin B12 460 pg/mL (193-986)
[2025-03-11 22:49] LABS: AST 16 U/L (15-37)
[2025-03-11 23:01] LABS: LDL CHOLESTEROL 76 mg/dL (<100)
== END 2025-03-11 15:23 | disposition home or self-care (01) ==
LOC: NCHCN 15:22
PROVIDERS: PCP Naturopath
DX: Z13.9 Encounter for screening, unspecified (principal); Z12.4 Encounter for screening for malignant neoplasm of cervix
CPT/HCPCS: 80053; 80061; 83721; 88142; 82607; 87624

== ENCOUNTER 2025-03-18 03:46 | Outpatient (CLI) | payer MEDICARE, SELFPAY ==
[2025-03-18] MEDS: Gadoterate meglumine 20 ML VIAL IVP (14:03)
--- NOTE | 2025-03-18 14:55 | DI.MRI_ITS ---
Exam(s) MR ABDOMEN WO/W EXAM: MR ABDOMEN WO/W CLINICAL HISTORY: CYST OF PANCREAS,K86.2,F/U ABNL CT 1.3 CM CYSTIC LESION HEAD OF PANCREAS TECHNIQUE: Multiplanar multisequence MRI of the Abdomen was performed. MRCP also performed. CONTRAST MATERIAL: IV Contrast: 12 mL of Dotarem contrast administered. COMPARISON: CT CT ABDOMEN PELVIS W from 03/01/2025 FINDINGS: Lung bases: Unremarkable. Liver: Scattered tiny simple cysts. Pancreas: 9 millimeters cyst noted in pancreatic head. No septation or enhancing wall. Mild dilatation of adjacent pancreatic duct. The cyst appears to communicate with the pancreatic duct. There are 2 other tiny cysts measuring 3 millimeters seen in the body. No suspicious solid mass. Gallbladder and Bile Ducts: Unremarkable. Adrenals: Unremarkable. Kidneys: The right kidney is unremarkable. There are 2 tiny cyst in the left kidney. Spleen: Unremarkable. Aorta: Unremarkable. Soft Tissues: Unremarkable. Bone: Unremarkable. Lymph Nodes: Unremarkable. Stomach and bowel: Unremarkable. Peritoneal cavity: Unremarkable. No evidence of ascites. IMPRESSION: 9 millimeter cyst in the head of the pancreas adjacent to a mildly dilated pancreatic duct. 2 other 3 millimeter cysts are noted also communicating with the pancreatic duct. CT or MRI follow-up recommended q2 years x5. (Suzanne et al, 2017) DATA REPOSITORY:
--- NOTE | 2025-03-18 16:01 | DI.VRAD_ITS ---
PROCEDURE INFORMATION: Exam: MR Abdomen Without and With Contrast, Biliary System Exam date and time: 03/18/2025 2:00 PM Age: 64 years old Clinical indication: Other: Cyst of pancreas, f/u abnl CT 1.3 cm cystic lesion head of pancreas TECHNIQUE: Imaging protocol: MR of the abdomen without and with intravenous contrast. Exam focused on the bile ducts and pancreatic ducts. Routine 3D-MRCP images were acquired and processed without radiologist supervision. Contrast material: DOTAREM; Contrast volume: 12 ml; Contrast route: INTRAVENOUS (IV); COMPARISON: CT ABDOMEN PELVIS W 03/01/2025 10:14 AM FINDINGS: Liver: Diffuse fatty infiltration the liver. Gallbladder and biliary ducts: Unremarkable. No filling defects. No ductal dilation. Pancreas: Bilobed 11 mm cyst in the head of the pancreas. See axial series 3001, image 17. This looks like it communicates with the pancreatic duct and there may also be a pancreatic divisum. Kidneys: Tiny benign cyst in the left kidney. Stomach and bowel: Large amount of stool the colon. Intraperitoneal space: No fluid collection. Other findings: Multiple tiny benign process. IMPRESSION: 1. Bilobed 11 mm cyst in the head of pancreas, likely communicating the pancreatic duct. Reimaging every 2 years for 10 years is recommended. (Reference: Suzanne, 2017) References: Suzanne LIU, et al. Management of Incidental Pancreatic Cysts: A White Paper of the ACR Incidental Findings Committee. J Am Miguelina Radiol. 2017;14(7):911-923. 2. Probable pancreatic divisum Dictated and Authenticated by: Mouna Rogers MD. Orderin CHRIS SHERMAN MD
== END 2025-03-18 04:06 ==
LOC: DI 03:47
PROVIDERS: PCP Naturopath; Visit Provider Nurse Practitioner Family
DX: K86.2 Cyst of pancreas (principal)
CPT/HCPCS: 74183

== ENCOUNTER → 2025-04-07 01:22 | Outpatient (CLI) | payer MEDICARE, SELFPAY ==
--- NOTE | 2025-04-07 08:46 | DI.DEXA_ITS ---
Exam(s) XR DEXA BONE DENSITY W/WO DANIEL EXAM: XR DEXA BONE DENSITY W/WO DANIEL CLINICAL HISTORY: MENOPAUSE, Z78.0, ASYMPTOMATIC MENOPAUSAL STATE TECHNIQUE: [employer] C densitometer analysis of left hip, lumbar spine and left forearm. Lateral survey image of the thoracic and lumbar spine. COMPARISON: No exams were available for comparison FINDINGS: Lateral view of the thoracic and lumbar spine shows no evidence of compression fractures. Bone mineral density measurements of the lumbar spine correspond to a total T- score of -1.7, in the osteopenic range. Bone mineral density measurements of the left hip correspond to a total T-score of -0.7. The femoral neck T-score is -2.0, in the osteopenic range. Theleft forearm bone mineral density measurements correspond to a T-score of the distal 3rd of -1.9, in the osteopenic range. . IMPRESSION: Osteopenia of the spine, hip and forearm.
== END ==
LOC: DI 01:22
PROVIDERS: PCP Naturopath
DX: Z78.0 Asymptomatic menopausal state (principal)
CPT/HCPCS: 77080

== ENCOUNTER 2025-04-15 15:46 | Outpatient (REF) | payer MEDICARE, SELFPAY ==
[2025-04-15 20:39] LABS: Vitamin D 25 Total 36 ng/mL (30-100)
[2025-04-15 20:40] LABS: TSH (W/Ref FT4) 1.41 uIU/mL (0.55-4.78)
[2025-04-15 20:54] LABS: Hemoglobin A1C 5.0 % (<5.7)
[2025-04-16 18:40] LABS: Hepatitis C Ab w Rflx HCV PCR Negative (Negative)
== END 2025-04-15 15:47 | disposition home or self-care (01) ==
LOC: NCHCN 15:46
PROVIDERS: PCP Naturopath
DX: Z78.0 Asymptomatic menopausal state (principal); Z00.00 Encounter for general adult medical examination without abnormal findings; Z13.1 Encounter for screening for diabetes mellitus
CPT/HCPCS: 82306; 86803; 83036; 83970; 84443